=== PATIENT | female | born 1940 | race Caucasian/White ===

== ENCOUNTER 2024-08-13 15:56 | Inpatient (IN) ==
--- NOTE | 2024-08-13 16:02 | ED Triage Note ---
Date of Service August 13, 2024 Provider in Triage Author: Min Carrasco History of Present Illness This patient was briefly evaluated while in triage. An abbreviated physical exam was performed. This patient is a 83-year-old Female who presents to the ED for evaluation right flank and groin pain x weeks had right ureteral stent removed with urology today (has ureteral stricture) also has an abdominal hernia-thinks its getting worse Physical Exam GENERAL: NAD CARDIOVASCULAR: RRR RESPIRATORY: CTA ABDOMEN: BS x 4. Right abdominal TTP. Initial orders for labs and / or imaging were placed and patient was placed in the waiting area until a bed is available. Please see further documentation for the full ED course.
[2024-08-13 16:47] LABS: Basophils # (auto) 0.03 K/uL (0.00-0.20); Basophils % (auto) 0.6 %; Eosinophils # (auto) 0.07 K/uL (0.00-0.50); Eosinophils % (auto) 1.4 %; Hematocrit (blood only) 35.7 % (37.0-47.0); Hemoglobin 11.4 g/dl (12.0-16.0); Immature Granulocytes # (auto) 0.01 K/uL (0.01-0.20); Immature Granulocytes % (auto) 0.2 %; Lymphocytes # (auto) 1.48 K/uL (1.20-3.40); Lymphocytes % (auto) 30.6 %; Mean Corpuscular Hemoglobin 26.5 pg (25.0-34.0); Mean Corpuscular Hgb Conc 31.9 g/dL (32.0-36.0); Mean Corpuscular Volume 82.8 fL (80.0-100.0); Mean Platelet Volume 9.5 fL (9.4-12.4); Monocytes % (auto) 8.3 %; Neutrophils # (auto) 2.85 K/uL (1.40-6.50); Neutrophils % (auto) 58.9 %; Platelet Count 306 K/uL (130-400); RDW Coefficient of Variation 13.9 % (11.5-14.5); RDW Standard Deviation 42.4 fL (36.4-46.3); Red Blood Count 4.31 M/uL (4.20-5.40); White Blood Count 4.84 K/ul (4.8-10.8)
--- NOTE | 2024-08-13 16:54 | Emergency Department Note ---
Impression & Plan Cecal volvulus, Abdominal wall hernia, NAPOLEON (acute kidney injury), Abdominal pain ED Provider Note NAME: TODD KING AGE: 83 SEX: F : 1940 ARRIVES VIA: Walk-In INFORMANT: Patient, ED PROVIDER(S): Dustin Yusuf MD CHIEF COMPLAINT: Abdominal pain MEDICAL DECISION MAKING: Patient presents due to concern for right-sided abdominal and lower abdominal pain in the setting of possible hernia as well as recent stent removal completed earlier today. IV was established and blood work was obtained. Patient was ordered IV Ofirmev. CT of the abdomen pelvis was performed. Patient's blood work shows a normal white count with a hemoglobin 11.4. This is around the patient's baseline. Platelet count is unremarkable with normal electrolytes. BSG 122 but nonfasting and not DKA. Slight NAPOLEON potentially is the patient's baseline creatinine 0.9 currently at 1.3. Patient was ordered IV fluids. LFTs are unremarkable. 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 I did inform the patient of the findings. The patient was ordered IV fentanyl. The patient was advised not to eat or drink anything. I did speak with the on-call general surgery team Dr. Lincoln Burnette who stated that Damon Urena would be present around 7 PM to evaluate the patient. Believe that this is reasonable at this time. They will discuss further management which may include operative intervention this evening versus possibly tomorrow. I did speak with the on-call hospital service Dr. Urbina and the patient was admitted to the medicine service. Discussion w/ other healthcare providers: Dr. Lincoln Burnette with general surgery Dr. Urbina inpatient medicine service Prior /Outside records reviewed: I reviewed the urology visit note from August [address] Welsh. Patient did have a cystoscopy performed along with stent removal completed. Differential diagnosis: Appendicitis, ovarian cyst, ovarian torsion, ectopic , TOA, PID, diverticulitis, UTI, obstruction, inflammatory bowel disease, renal colic, PUD, pancreatitis, biliary pathology, hernia, volvulus, constipation, as well as other pathologies were considered. Diagnostics, as interpreted by me: ECG: None Cardiac monitoring: An order was placed for continuous cardiac monitoring. The monitor shows a rate of 75 with sinus rhythm. Patient was placed on pulse oximetry Medical decision rules: None Imaging studies: I informally interpreted the patient's CT abdomen pelvis does show colonic distention with noted hernia with formal report to follow. HPI: Patient presents due to concern for right-sided abdominal and flank pain. The patient states that she did have a recent ureteral stent removed by Dr. Welsh. Patient states that she did have it removed today. Review of the chart shows a note dated yesterday. Patient denies any chest pains or shortness of breath. No nausea or vomiting. Last bowel movement this morning. The patient was also concerned as she feels as though her right sided abdominal hernia is getting bigger. The patient has been seen by Dr. Suggs and is scheduled to have this operatively fixed next month. Patient Nuys any bloody bowel movements. Patient did take some Tylenol but did not notice any significant improvement in her symptoms. Patient denies any fevers or chills. PAST MEDICAL HISTORY: See Below PAST SURGICAL HISTORY: See Below SOCIAL HISTORY: See Below HOME MEDICATIONS: See Below ALLERGIES: See Below VITALS: See Below PHYSICAL EXAMINATION: GENERAL: NAD, non-toxic. EYE EXAM: Normal conjunctiva. PERRL, no anisocoria and EOM's grossly intact w/o pain. OROPHARYNX: Moist mucus membranes, grossly normal dentition. NECK: Trachea midline, no stridor. Supple, no nuchal rigidity, no adenopathy, non-tender. No signs of meningismus. FROM of the neck with good chin to chest and neck extension. LUNGS: Clear to auscultation. Normal chest wall mechanics. HEART: NSR, no MRG. ABDOMEN: Abdomen soft, mild diffuse tenderness most prominent in the lower abdomen, hernia noted in the right mid abdomen seems to be reducible, right lower quadrant pain also noted, no masses, no rebound or guarding. BACK: No CVA TTP. SKIN: No rashes and no bruising. UPPER EXTREMITIES: Upper extremities are grossly normal. LOWER EXTREMITIES: Grossly normal, no edema. NEURO EXAM: A&O x3, cranial nerves II-XII grossly intact, normal speech, moves all 4 extremities. Past Med/Surg History Problem List (Updated 08/13/24 @ 19:28 by Dustin Yusuf MD) Abdominal pain (Acute) NAPOLEON (acute kidney injury) (Acute) Cecal volvulus (Acute) Incarcerated ventral hernia Abdominal wall hernia (Acute) Encounter for preoperative assessment (Acute) Medical History Hyperlipidemia History of back problems Bronchitis Poor historian Hydroureteronephrosis right kidney larger per pt. Osteoporosis Arthritis History of diverticulitis Kidney lesion, habematolel, right Hiatal hernia Large hiatal hernia- urology referred patient to general surgery per 07/16/24 office visit Abdominal wall hernia Acid reflux Hypothyroid HTN (hypertension) Anxiety Surgical History History of surgical procedure on mouth top teeth removed History of tubal ligation History of D&C History of surgery on left wrist pins and screws. History of cholecystectomy History of hysterectomy History of colonoscopy (2018) pain following procedure...urgent care visit and hospitalized for perforation...no sx intervention required. History of intestinal surgery (04/2023) "bowel kinked" Family History Aunt Diabetes Father Heart disease Other No family history of adverse response to anesthesia Social History Smoking Status: Never smoker Do You Dip or Chew Tobacco: No; Hx Substance Use: No Preferred Language: French Communication Ability: Effective Market Consultant Required: No Beliefs That Will Affect Care: None marital status: Current Living Situation: Spouse How many Children do You have: 1 Feels Safe at Home: Yes during the past year weight has: remained stable Assistive Devices: Other Allergies Allergies Allergy/AdvReac Type Severity Reaction Status Date / Time iodine Allergy Unverified 08/12/24 11:06 morphine AdvReac Unknown Confusion Verified 08/12/24 11:03 oxycodone [From OxyContin] AdvReac Unknown felt awful Verified 08/12/24 11:03 on it Home Meds Home Medications Medication Instructions Recorded Confirmed diltiazem HCl 240 mg capsule,24 240 mg PO QAM 07/15/24 08/13/24 hr,extended release levothyroxine 25 mcg tablet 25 mcg PO QAM 07/15/24 08/13/24 lorazepam 1 mg tablet 1 mg PO TID PRN Anxiety 07/15/24 08/13/24 omeprazole 20 mg capsule,delayed 20 mg PO QAM 07/15/24 08/13/24 release paroxetine HCl 10 mg tablet 10 mg PO HS 07/15/24 08/13/24 tramadol 50 mg tablet 50 mg PO UD PRN Pain 07/15/24 08/13/24 ibuprofen 600 mg tablet 600 mg PO BID PRN Pain 07/23/24 08/13/24 multivitamin 2 cap PO DAILY 07/23/24 08/13/24 tamsulosin 0.4 mg capsule 0.8 mg PO HS 07/23/24 08/13/24 Previous Rx's Medication Instructions Recorded naproxen 500 mg tablet 500 mg PO BID #30 tabs 07/16/24 Results & Data (ED) Vital Signs Vital Signs - 24 hr 08/13/24 16:00 08/13/24 17:01 08/13/24 18:13 Temperature 36.2 C L Temperature Source Temporal Artery Scan Pulse Rate 86 72 Pulse Rate [Apical] 84 Pulse Rhythm Regular Pulse Rhythm [Apical] Regular Pulse Strength Normal Respiratory Rate 18 20 Respiratory Effort / Characteristics Non-Labored Spontaneous Non-Labored Spontaneous Respiratory Depth Normal Normal Respiratory Pattern Regular Regular Blood Pressure 159/84 H Blood Pressure [Left Arm] 150/74 H Blood Pressure Mean 109 Blood Pressure Mean [Left Arm] 99 Blood Pressure Position Sitting Blood Pressure Position [Left Arm] Semi-fowlers Pulse Oximetry 99 96 Oxygen Delivery Method Room Air Sepsis Recent Fever Within 48 Hours No Sepsis New/Unexplained Change in Mental Status No Sepsis Action Taken by Nursing No Action Required 08/13/24 18:30 Temperature Temperature Source Pulse Rate Pulse Rate [Apical] 77 Pulse Rhythm Pulse Rhythm [Apical] Pulse Strength Respiratory Rate 15 Respiratory Effort / Characteristics Non-Labored Spontaneous Respiratory Depth Normal Respiratory Pattern Regular Blood Pressure Blood Pressure [Left Arm] 147/79 H Blood Pressure Mean Blood Pressure Mean [Left Arm] 101 Blood Pressure Position Blood Pressure Position [Left Arm] Semi-fowlers Pulse Oximetry 95 Oxygen Delivery Method Room Air Sepsis Recent Fever Within 48 Hours Sepsis New/Unexplained Change in Mental Status Sepsis Action Taken by Penitentiary Medications Current Medication List: was personally reviewed by me Laboratory Data Attestation: I reviewed the patient's lab results. 08/13/24 16:18 08/13/24 16:18 Lab Results 08/13/24 Range/Units 16:18 WBC 4.84 (4.8-10.8) K/ul RBC 4.31 (4.20-5.40) M/uL Hgb 11.4 L (12.0-16.0) g/dl Hct 35.7 L (37.0-47.0) % MCV 82.8 (80.0-100.0) fL MCH 26.5 (25.0-34.0) pg MCHC 31.9 L (32.0-36.0) g/dL RDW Std Deviation 42.4 (36.4-46.3) fL RDW Coeff of Angy 13.9 (11.5-14.5) % Plt Count 306 (130-400) K/uL MPV 9.5 (9.4-12.4) fL Immature Gran % (Auto) 0.2 % Neut % (Auto) 58.9 % Lymph % (Auto) 30.6 % Saline % (Auto) 8.3 % Eos % (Auto) 1.4 % Baso % (Auto) 0.6 % Neut # (Auto) 2.85 (1.40-6.50) K/uL Lymph # (Auto) 1.48 (1.20-3.40) K/uL Saline # (Auto) 0.40 (0.11-0.59) K/uL Eos # (Auto) 0.07 (0.00-0.50) K/uL Baso # (Auto) 0.03 (0.00-0.20) K/uL Immature Gran # (Auto) 0.01 (0.01-0.20) K/uL Sodium 138 (136-145) mmol/L Potassium 4.0 (3.5-5.1) mmol/L Chloride 102 (98-107) mmol/L Carbon Dioxide 29 (21-32) mmol/L Anion Gap 7 (3-11) BUN 21 (6-23) mg/dl Creatinine 1.31 H (0.6-1.2) mg/dl Est Cr Clr Drug Dosing 32.2 ml/min eGFR 40.68 BUN/Creatinine Ratio 16.0 (10-20) Glucose 122 H (70-99(Fasting)) mg/dl Calcium 9.6 (8.6-10.3) mg/dl Total Bilirubin 0.4 (0.2-1.0) mg/dl AST 14 (13-39) U/L ALT 7 (7-52) U/L Alkaline Phosphatase 74 (34-104) U/L Total Protein 7.7 (6.0-8.3) gm/dl Albumin 4.2 (3.4-5.0) gm/dl Globulin 3.5 (2.5-4.0) gm/dl Albumin/Globulin Ratio 1.2 (0.9-2) Lipase 47 (11-82) U/L Administered Medications Sodium Chloride (Nss) 500 mls @ 125 mls/hr IV .Q4H JACK Stop: 08/13/24 22:29 Last Admin: 08/13/24 18:48 Dose: 125 mls/hr Documented By: SHRUTHI Discontinued Medications Fentanyl Citrate (Fentanyl Citrate Pf 100 Mcg/2 Ml Vial) 25 mcg IV NOW STA Stop: 08/13/24 18:31 Last Admin: 08/13/24 18:44 Dose: 25 mcg Documented By: SHRUTHI Acetaminophen (Ofirmev) 1,000 mg in 100 mls @ 400 mls/hr IV NOW STA Stop: 08/13/24 18:30 Last Infusion: 08/13/24 19:04 Dose: Infused Documented By: Admin: 08/13/24 18:47 Dose: 400 mls/hr Documented By: SHRUTHI Imaging Data Radiologist's Impression: Abdomen/Pelvis CT 08/13/24 16:04 EXAMINATION: CT of the abdomen and pelvis performed without contrast TECHNIQUE: Helical CT images from the lung bases through the symphysis pubis were obtained without contrast. Coronal and sagittal reformatted images were generated at a workstation for further assessment. Dose reduction techniques were achieved by using automatic exposure control and/or adjustment of mA and/or kV according to patient size and/or use of iterative reconstruction technique. COMPARISON: 07/15/2024 HISTORY: Abdominal pain FINDINGS: Lower chest: No consolidation. No pleural effusion or pneumothorax. Liver: No suspicious liver lesions. Gallbladder: Cholecystectomy changes. Spleen: Normal size. Pancreas: No suspicious pancreatic lesions. The pancreatic duct is not dilated. Adrenal glands: No adrenal nodules. Kidneys: No hydronephrosis or obstructing renal stones. Bladder / Pelvic organs: Unremarkable. Bowel: There is dilation of the cecum, which is deviated into the mid abdomen. The location for the ileocecal valve, additionally appears to be about the lateral aspect of the cecum, rather than medial. The mesentery lateral to the cecum has a slightly swirled appearance, with twisting of the proximal portion of the ascending:. A prominent air/fluid level is noted in the cecum. The appearance is entirely new from the CT on July 15, 2024, when the cecum was appropriately located and nondilated in the right lower quadrant. The previously seen right paramedian ventral wall abdominal hernia containing loops of small bowel appears to have slightly increased in size, possibly due to to increased intra-abdominal pressure and the proximity of the dilated cecum. Sigmoid diverticulosis without diverticulitis. There is a large esophageal hiatal hernia, containing the entire stomach. Lymph nodes: No retroperitoneal, mesenteric, or pelvic lymphadenopathy. Peritoneum / Retroperitoneum: No free fluid or air within the abdomen. Vessels: No infrarenal aortic aneurysm. Heavy aortoiliac calcification. Bones and soft tissues: No suspicious lesion in the bones. IMPRESSION: There is new dilation and medial deviation of the cecum, with an air/fluid level, and swirling of the adjacent mesentery, most consistent with cecal volvulus. Electronically signed by Manuel Garcia 08-13-2024 6:07 PM Discharge Plan Visit Data Chief Complaint: Groin Pain Stated Complaint: RT HIP INTO GROIN PAIN, HAS A STINT ED Provider: Dustin Yusuf Discharge Problem: Cecal volvulus, Abdominal wall hernia, NAPOLEON (acute kidney injury), Abdominal pain Forms Stand Alone Forms: [facility] Prescriptions Prescriptions: No Action naproxen 500 mg tablet 500 mg PO BID Qty: 30 1RF paroxetine HCl 10 mg tablet 10 mg PO HS diltiazem HCl 240 mg capsule,extended release 24 hr 240 mg PO QAM tramadol 50 mg tablet 50 mg PO UD PRN (Reason: Pain) levothyroxine 25 mcg tablet 25 mcg PO QAM omeprazole 20 mg capsule,delayed release(DR/EC) 20 mg PO QAM lorazepam 1 mg tablet 1 mg PO TID PRN (Reason: Anxiety) ibuprofen 600 mg Tablet 600 mg PO BID PRN (Reason: Pain) multivitamin Capsule 2 cap PO DAILY tamsulosin 0.4 mg capsule 0.8 mg PO HS Referrals Referrals: Daria Taylor D.O. [Primary Care Provider] - Discharge Problem: Abdominal pain Qualifiers: Abdominal location: right lower quadrant Qualified Code(s): R10.31 - Right lower quadrant pain
[2024-08-13 16:55] LABS: Albumin Globulin Ratio 1.2 (0.9-2); Albumin Level 4.2 gm/dl (3.4-5.0); Bilirubin,Total 0.4 mg/dl (0.2-1.0); Calcium 9.6 mg/dl (8.6-10.3); Creatinine Clr Calc Pharmacy 32.2 ml/min; Globulin 3.5 gm/dl (2.5-4.0); Total Protein 7.7 gm/dl (6.0-8.3)
--- NOTE | 2024-08-13 18:08 | CT Scan Report ---
EXAMINATION: CT of the abdomen and pelvis performed without contrast TECHNIQUE: Helical CT images from the lung bases through the symphysis pubis were obtained without contrast. Coronal and sagittal reformatted images were generated at a workstation for further assessment. Dose reduction techniques were achieved by using automatic exposure control and/or adjustment of mA and/or kV according to patient size and/or use of iterative reconstruction technique. COMPARISON: 07/15/2024 HISTORY: Abdominal pain FINDINGS: Lower chest: No consolidation. No pleural effusion or pneumothorax. Liver: No suspicious liver lesions. Gallbladder: Cholecystectomy changes. Spleen: Normal size. Pancreas: No suspicious pancreatic lesions. The pancreatic duct is not dilated. Adrenal glands: No adrenal nodules. Kidneys: No hydronephrosis or obstructing renal stones. Bladder / Pelvic organs: Unremarkable. Bowel: There is dilation of the cecum, which is deviated into the mid abdomen. The location for the ileocecal valve, additionally appears to be about the lateral aspect of the cecum, rather than medial. The mesentery lateral to the cecum has a slightly swirled appearance, with twisting of the proximal portion of the ascending:. A prominent air/fluid level is noted in the cecum. The appearance is entirely new from the CT on July 15, 2024, when the cecum was appropriately located and nondilated in the right lower quadrant. The previously seen right paramedian ventral wall abdominal hernia containing loops of small bowel appears to have slightly increased in size, possibly due to to increased intra-abdominal pressure and the proximity of the dilated cecum. Sigmoid diverticulosis without diverticulitis. There is a large esophageal hiatal hernia, containing the entire stomach. Lymph nodes: No retroperitoneal, mesenteric, or pelvic lymphadenopathy. Peritoneum / Retroperitoneum: No free fluid or air within the abdomen. Vessels: No infrarenal aortic aneurysm. Heavy aortoiliac calcification. Bones and soft tissues: No suspicious lesion in the bones. IMPRESSION: There is new dilation and medial deviation of the cecum, with an air/fluid level, and swirling of the adjacent mesentery, most consistent with cecal volvulus. Electronically signed by Manuel Garcia 08-13-2024 6:07 PM
[2024-08-13] MEDS: fentaNYL citrate PF 100 MCG/2 ML VIAL IV STA (18:44)
[2024-08-13] MEDS: ACETAMINOPHEN 1,000 MG/100 ML VIAL IV STA (18:47)
[2024-08-13] MEDS: SODIUM CHLORIDE 0.9% 500 ML IV SCH (18:48)
[2024-08-13] MEDS: PIPERACILLIN/TAZOBACTAM 4.5 GM/100 ML BAG IV ONE (19:41)
[2024-08-13] MEDS ORDERED: HYDROmorphone INJ 0.5 MG/0.5 ML SYR IV PRN (19:42)
--- NOTE | 2024-08-13 19:42 | Anesthesiology Consultation ---
Date of Service August 13, 2024 Assessment & Plan (1) Encounter for preoperative assessment: Chart Review Chart Review: Patient NOT seen in Pre Admission Testing emergent surgery Consults Requested none History Surgery Operation Date: 08/13/24 19:30 Proposed Procedures p Exploratory Laparotomy - Frieda Awan DO Height/Weight Height: 5 ft 5 in Weight: 68.5 kg Allergies Allergy/AdvReac Type Severity Reaction Status Date / Time iodine Allergy Unverified 08/12/24 11:06 morphine AdvReac Unknown Confusion Verified 08/12/24 11:03 oxycodone [From OxyContin] AdvReac Unknown felt awful Verified 08/12/24 11:03 on it Medications Home Medications Medication Instructions Recorded Confirmed Last Taken diltiazem HCl 240 mg capsule,24 240 mg PO QAM 07/15/24 08/13/24 08/01/24 05:00 hr,extended release levothyroxine 25 mcg tablet 25 mcg PO QAM 07/15/24 08/13/24 08/01/24 05:00 lorazepam 1 mg tablet 1 mg PO TID PRN Anxiety 07/15/24 08/13/24 07/31/24 17:00 omeprazole 20 mg capsule,delayed 20 mg PO QAM 07/15/24 08/13/24 08/01/24 05:00 release paroxetine HCl 10 mg tablet 10 mg PO HS 07/15/24 08/13/24 07/31/24 20:00 tramadol 50 mg tablet 50 mg PO UD PRN Pain 07/15/24 08/13/24 1 Week Ago ~07/25/24 naproxen 500 mg tablet 500 mg PO BID #30 tabs 07/16/24 08/13/24 1 Week Ago ~07/25/24 ibuprofen 600 mg tablet 600 mg PO BID PRN Pain 07/23/24 08/13/24 2 Weeks Ago ~07/18/24 multivitamin 2 cap PO DAILY 07/23/24 08/13/24 1 Week Ago ~07/25/24 tamsulosin 0.4 mg capsule 0.8 mg PO HS 07/23/24 08/13/24 07/31/24 20:00 Active Medications Generic Name Dose Route Start Last Admin Trade Name Freq PRN Reason Stop Dose Admin Sodium Chloride 500 mls @ 125 mls/hr 08/13/24 18:30 08/13/24 18:48 Nss IV 08/13/24 22:29 125 mls/hr .Q4H JACK Administration Piperacillin Sod/Tazobactam Sod 4.5 gm in 100 mls @ 200 mls/hr 08/13/24 19:27 08/13/24 19:41 Zosyn IV 08/13/24 19:56 200 mls/hr NOW ONE Administration Protocol Past Medical History Medical History Hyperlipidemia History of back problems Bronchitis Poor historian Hydroureteronephrosis right kidney larger per pt. Osteoporosis Arthritis History of diverticulitis Kidney lesion, osage, right Hiatal hernia Large hiatal hernia- urology referred patient to general surgery per 07/16/24 office visit Abdominal wall hernia Acid reflux Hypothyroid HTN (hypertension) Anxiety Past Family History Family History Aunt Diabetes Father Heart disease Other No family history of adverse response to anesthesia Past Surgical History Surgical History History of surgical procedure on mouth top teeth removed History of tubal ligation History of D&C History of surgery on left wrist pins and screws. History of cholecystectomy History of hysterectomy History of colonoscopy (2017) pain following procedure...urgent care visit and hospitalized for perforation...no sx intervention required. History of intestinal surgery (04/2023) "bowel kinked" Social History Smoking Status: Never smoker Do You Dip or Chew Tobacco: No Hx Substance Use: No substance use type: does not use Physical Exam Vital Signs Last Vital Signs Temp 97.2 F L 08/13/24 16:00 Pulse 77 08/13/24 18:30 Resp 15 08/13/24 18:30 BP 147/79 H 08/13/24 18:30 Pulse Ox 95 08/13/24 18:30 O2 Del Method Room Air 08/13/24 18:30 Testing Laboratory Results 08/13/24 16:18 08/13/24 16:18 Electrocardiogram Date: 07/19/24 Findings: + NSR @
--- NOTE | 2024-08-13 19:47 | History & Physical Report ---
Date of Service August 13, 2024 Assessment & Plan (1) NAPOLEON (acute kidney injury): (2) Cecal volvulus: (3) Incarcerated ventral hernia: (4) HTN (hypertension): (5) Anxiety: (6) Hypothyroid: (7) Acid reflux: Plan This is a 83 y/o F w/ PMHx of HTN, HLD, OA, GERD, Anxiety, Hypothyroidism, and ventral hernia recently noted to be incarcerated who arrived to the ED due to severe abdominal pain of acute onset, and was admitted for management of cecal volvulus. Cecal volvulus - Patient with intermittent abdominal pain that could be related to incarcerated ventral hernia versus volvulus with spontaneous detorsion versus urologic origin given recent noted urothelial lesion requiring stent placement. - Patient w/o N/V or significant pain at time of evaluation and does not appear septic - ED discussed with General Surgery and patient to go for OR today for exploratory laparotomy - Started Zosyn and may continue postoperatively - Stepwise pain control with tylenol for mild pain, dilaudid 0.25 mg for moderate pain, and dilaudid 0.5 mg for severe pain - NPO for now and mIVF ordered - General surgery consulted - Admit to Med/Surg Incarcerated ventral hernia - Recently visited Gen surg as outpatient where her hernia was noted to be incarcerated and were planning to coordinate for surgical management soon - Possibly contributing to current presentation? - Monitoring and management per general surgery team HTN - Home meds held while NPO; can resume tomorrow - BP in ED stable Anxiety - Home Paroxetine held while NPO - Uses Ativan prn at home (unsure how frequent); held for now Hypothyroidism - Levothyroxine held while NPO, can resume tomorrow morning GERD - Omeprazole 20 mg daily held while NPO Dispo: Med/Surge Fluids: NSS @125 ml/hr Diet:NPO for procedure Pain Control: Stepwise approach with Tylenol 1 gm for mild pain, Dilaudid 0.25 mg for moderate pain, and Dilaudid 0.5 mg for severe pain VTE ppx: SCD Code Status: FULL CODE History of Present Illness Chief Complaint: Abdominal pain Primary Care Provider: Daria Taylor Patient is an 83-year-old female with past medical history of hypertension, anxiety, hypothyroidism, osteoarthritis, and incarcerated ventral hernia who arrived to the emergency department due to right flank and groin pain that has been present for a few weeks, as well as intermittent abdominal pain with acute worsening today. She was seen by urology office on 08/12/2024 to have right ureteral stent removed, which was placed due to ureteral stricture on 08/01/2024. No urinary symptoms at this time. Patient has history of small bowel obstruction a few years back, and states that she had been getting similar but more mild pain that comes and goes over the last few months. However, that abdominal pain that she has been feeling for the last few months happened today and was much worse. Also endorses episode of diarrhea earlier today that was nonbloody. Pain appeared suddenly without known precipitating factor. Try to use Tylenol at home without success for pain control. Denies having any fevers, chills, weakness, nausea/vomiting, chest pain, shortness of breath, or any other systemic symptoms. ED Course: given 500 mL NSS at 125 ml/hr, fentanyl 25 mcg, Tylenol 1 gm, Zosyn x1 Labs/Imaging: CBC with normal white blood count of 4.94, hemoglobin of 11.4 (close to baseline), platelets of 306. CMP without significant electrolyte abnormalities, creatinine slightly increased compared to level taken from June/2024 (0.91 --> 1.31), blood sugar 122. LFTs unremarkable. Lipase 47. CT abdomen pelvis without contrast noting likely cecal volvulus. Medical History: [Reviewed] Medications: [Reviewed] Surgical History: [Reviewed] Family history: [Reviewed] Allergies: [Reviewed] Social History: [Reviewed] Code Status: FULL CODE Allergies Allergy/AdvReac Type Severity Reaction Status Date / Time iodine Allergy Unverified 08/12/24 11:06 morphine AdvReac Unknown Confusion Verified 08/12/24 11:03 oxycodone [From OxyContin] AdvReac Unknown felt awful Verified 08/12/24 11:03 on it Home Medications Medication Instructions Recorded Confirmed Type diltiazem HCl 240 mg capsule,24 240 mg PO QAM 07/15/24 08/13/24 History hr,extended release levothyroxine 25 mcg tablet 25 mcg PO QAM 07/15/24 08/13/24 History lorazepam 1 mg tablet 1 mg PO TID PRN Anxiety 07/15/24 08/13/24 History omeprazole 20 mg capsule,delayed 20 mg PO QAM 07/15/24 08/13/24 History release paroxetine HCl 10 mg tablet 10 mg PO HS 07/15/24 08/13/24 History tramadol 50 mg tablet 50 mg PO UD PRN Pain 07/15/24 08/13/24 History naproxen 500 mg tablet 500 mg PO BID #30 tabs 07/16/24 08/13/24 Rx ibuprofen 600 mg tablet 600 mg PO BID PRN Pain 07/23/24 08/13/24 History multivitamin 2 cap PO DAILY 07/23/24 08/13/24 History tamsulosin 0.4 mg capsule 0.8 mg PO HS 07/23/24 08/13/24 History Past Med/Surg History Problem List Abdominal pain (Acute) N[place]ON (acute kidney injury) (Acute) Cecal volvulus (Acute) Incarcerated ventral hernia Abdominal wall hernia (Acute) Encounter for preoperative assessment (Acute) Medical History Hyperlipidemia History of back problems Bronchitis Poor historian Hydroureteronephrosis right kidney larger per pt. Osteoporosis Arthritis History of diverticulitis Kidney lesion, [place], right Hiatal hernia Large hiatal hernia- urology referred patient to general surgery per 07/16/24 office visit Abdominal wall hernia Acid reflux Hypothyroid HTN (hypertension) Anxiety Surgical History History of surgical procedure on mouth top teeth removed History of tubal ligation History of D&C History of surgery on left wrist pins and screws. History of cholecystectomy History of hysterectomy History of colonoscopy (2018) pain following procedure...urgent care visit and hospitalized for perforation...no sx intervention required. History of intestinal surgery (04/2023) "bowel kinked" Family History Aunt Diabetes Father Heart disease Other No family history of adverse response to anesthesia Social History Smoking Status: Never smoker Tobacco Type: Declines Second Hand Exposure: No; Do You Dip or Chew Tobacco: No; Tobacco Cessation Education Requested by Patient: No Hx Alcohol Use: No Hx Substance Use: No Preferred Language: Sinhala Communication Ability: Effective Nail Galvanizer Required: No Beliefs That Will Affect Care: None marital status: Current Living Situation: Spouse How many Children do You have: 1 Other Information That Helps Us Care for You: No Feels Safe at Home: Yes Safety Concerns: Feels Safe At This Time during the past year weight has: remained stable Assistive Devices: Other Review of Systems Review of Systems: As per HPI Physical Exam Physical Exam: GENERAL: AAOx3, afebrile, calm, cooperative, non-toxic, NAD HEAD: AT, NC EYES: EOM intact, [place] THROAT: normal to visual inspection CHEST: symmetric chest expansions with respirations CARDIO: RRR, no r/m/g PULMONARY: CTA, normal respiratory effort, no respiratory distress GI: soft, mildly distended, mildly tender, bulge noted in RLQ EXTREMITIES: no swelling or calf tenderness in b/l LE SKIN: no rashes Results & Data Results & Data Vital Signs (Past 12 Hours) Vital Signs Temp Pulse Pulse Resp BP BP Pulse Ox 08/13/24 18:30 77 15 147/79 H 95 08/13/24 18:13 84 20 150/74 H 96 08/13/24 17:01 72 08/13/24 16:00 36.2 C L 86 18 159/84 H 99 O2 Del Method 08/13/24 18:30 Room Air 08/13/24 18:13 Room Air 08/13/24 17:01 08/13/24 16:00 Laboratory Results Laboratory Results WBC 4.84 K/ul (4.8-10.8) 08/13/24 16:18 RBC 4.31 M/uL (4.20-5.40) 08/13/24 16:18 Hgb 11.4 g/dl (12.0-16.0) L 08/13/24 16:18 Hct 35.7 % (37.0-47.0) L 08/13/24 16:18 MCV 82.8 fL (80.0-100.0) 08/13/24 16:18 MCH 26.5 pg (25.0-34.0) 08/13/24 16:18 MCHC 31.9 g/dL (32.0-36.0) L 08/13/24 16:18 RDW Std Deviation 42.4 fL (36.4-46.3) 08/13/24 16:18 RDW Coeff of Angy 13.9 % (11.5-14.5) 08/13/24 16:18 Plt Count 306 K/uL (130-400) 08/13/24 16:18 MPV 9.5 fL (9.4-12.4) 08/13/24 16:18 Immature Gran % (Auto) 0.2 % 08/13/24 16:18 Neut % (Auto) 58.9 % 08/13/24 16:18 Lymph % (Auto) 30.6 % 08/13/24 16:18 [place] % (Auto) 8.3 % 08/13/24 16:18 Eos % (Auto) 1.4 % 08/13/24 16:18 Baso % (Auto) 0.6 % 08/13/24 16:18 Neut # (Auto) 2.85 K/uL (1.40-6.50) 08/13/24 16:18 Lymph # (Auto) 1.48 K/uL (1.20-3.40) 08/13/24 16:18 [place] # (Auto) 0.40 K/uL (0.11-0.59) 08/13/24 16:18 Eos # (Auto) 0.07 K/uL (0.00-0.50) 08/13/24 16:18 Baso # (Auto) 0.03 K/uL (0.00-0.20) 08/13/24 16:18 Immature Gran # (Auto) 0.01 K/uL (0.01-0.20) 08/13/24 16:18 PT 10.6 Seconds (9.0-12.0) 08/13/24 16:15 INR 1.0 (0.9-1.1) 08/13/24 16:15 APTT 28 Seconds (21-31) 08/13/24 16:15 PTT Ratio 1.0 08/13/24 16:15 Sodium 138 mmol/L (136-145) 08/13/24 16:18 Potassium 4.0 mmol/L (3.5-5.1) 08/13/24 16:18 Chloride 102 mmol/L (98-107) 08/13/24 16:18 Carbon Dioxide 29 mmol/L (21-32) 08/13/24 16:18 Anion Gap 7 (3-11) 08/13/24 16:18 BUN 21 mg/dl (6-23) 08/13/24 16:18 Creatinine 1.31 mg/dl (0.6-1.2) H 08/13/24 16:18 Est Cr Clr Drug Dosing 32.2 ml/min 08/13/24 16:18 eGFR 40.68 08/13/24 16:18 BUN/Creatinine Ratio 16.0 (10-20) 08/13/24 16:18 Glucose 122 mg/dl (70-99(Fasting)) H 08/13/24 16:18 Calcium 9.6 mg/dl (8.6-10.3) 08/13/24 16:18 Total Bilirubin 0.4 mg/dl (0.2-1.0) 08/13/24 16:18 AST 14 U/L (13-39) 08/13/24 16:18 ALT 7 U/L (7-52) 08/13/24 16:18 Alkaline Phosphatase 74 U/L (34-104) 08/13/24 16:18 Total Protein 7.7 gm/dl (6.0-8.3) 08/13/24 16:18 Albumin 4.2 gm/dl (3.4-5.0) 08/13/24 16:18 Globulin 3.5 gm/dl (2.5-4.0) 08/13/24 16:18 Albumin/Globulin Ratio 1.2 (0.9-2) 08/13/24 16:18 Lipase 47 U/L (11-82) 08/13/24 16:18 Impressions Abdomen/Pelvis CT 08/13/24 16:04 EXAMINATION: CT of the abdomen and pelvis performed without contrast TECHNIQUE: Helical CT images from the lung bases through the symphysis pubis were obtained without contrast. Coronal and sagittal reformatted images were generated at a workstation for further assessment. Dose reduction techniques were achieved by using automatic exposure control and/or adjustment of mA and/or kV according to patient size and/or use of iterative reconstruction technique. COMPARISON: 07/15/2024 HISTORY: Abdominal pain FINDINGS: Lower chest: No consolidation. No pleural effusion or pneumothorax. Liver: No suspicious liver lesions. Gallbladder: Cholecystectomy changes. Spleen: Normal size. Pancreas: No suspicious pancreatic lesions. The pancreatic duct is not dilated. Adrenal glands: No adrenal nodules. Kidneys: No hydronephrosis or obstructing renal stones. Bladder / Pelvic organs: Unremarkable. Bowel: There is dilation of the cecum, which is deviated into the mid abdomen. The location for the ileocecal valve, additionally appears to be about the lateral aspect of the cecum, rather than medial. The mesentery lateral to the cecum has a slightly swirled appearance, with twisting of the proximal portion of the ascending:. A prominent air/fluid level is noted in the cecum. The appearance is entirely new from the CT on July 15, 2024, when the cecum was appropriately located and nondilated in the right lower quadrant. The previously seen right paramedian ventral wall abdominal hernia containing loops of small bowel appears to have slightly increased in size, possibly due to to increased intra-abdominal pressure and the proximity of the dilated cecum. Sigmoid diverticulosis without diverticulitis. There is a large esophageal hiatal hernia, containing the entire stomach. Lymph nodes: No retroperitoneal, mesenteric, or pelvic lymphadenopathy. Peritoneum / Retroperitoneum: No free fluid or air within the abdomen. Vessels: No infrarenal aortic aneurysm. Heavy aortoiliac calcification. Bones and soft tissues: No suspicious lesion in the bones. IMPRESSION: There is new dilation and medial deviation of the cecum, with an air/fluid level, and swirling of the adjacent mesentery, most consistent with cecal volvulus. Electronically signed by Manuel Garcia 08-13-2024 6:07 PM Supervising Physician Co-Signing Physician Notes Patient seen and examined in room 379-2, chart reviewed, case discussed with Dr. Flood and I agree with the assessment and plan. Patient is an 83yo female presenting with incarcerated ventral hernia. Patient taken to the OR for exploratory laparotomy. Doing well this AM. Reports having a headache, otherwise doing well On exam she is HD stable, NAD Skin - no rash HEENT - MMM, Neck supple Heart - +S1/S2, regular Lungs - CTA Abd - +BS, binder in place Ext - no edema Labs and images reviewed Assessment/plan s/p exploratory laparotomy for suspected incarcerated hernia. Patient had lysis of adhesions and a [id number] ileocolic anastomosis Advance diet as tolerated Pain management Appreciate General Surgery assistance Resident Activity Tracking Resident Involvement: Resident Care Provided Care Provided: Adult [facility]
--- NOTE | 2024-08-13 19:51 | Surgery Consultation ---
Date of Consultation August 13, 2024 Assessment & Plan (1) Cecal volvulus: The patient is being admitted on the hospitalist service but due to the findings on CT scan from surgery perspective we will proceed as follows: There is concern the patient has an underlying cecal volvulus which required exploratory surgery which we plan on doing this evening with Dr. Elise I had a lengthy discussion with the patient and her family outlining that we are not sure exactly what will need to be performed but due to concern for cecal volvulus this may require bowel resection and possible colostomy formation as well as any other necessary procedures. I did have an extensive discussion with the patient and family regarding the nature of her procedure. They expressed her understanding and wished to proceed.Will give the patient preoperative antibiotics in the form of Zosyn Analgesia be provided Will hydrate her with IV fluids Will keep her n.p.o. for the present time Please see Dr. Elise's attending portion of this document for further description of surgical plan. Supervising Physician Co-Signing Physician Notes I have seen and examined this patient as well as reviewed the imaging studies and I agree with this plan. The patient needs exploration and may require bowel resection. I have discussed the surgery to them including the risks and benefits. Consent has been obtained. History of Present Illness Reason for Consultation: Cecal volvulus History of Present Illness This is an 83-year-old female who presented the emergency department secondary to abdominal pain. The patient said that she has been waxing and waning abdominal pain on the right side of her abdomen for at least 1 month. She notes it is got markedly worse today having thus prompting her visit to the emergency department. She denies any nausea or vomiting and noted that she had a loose bowel movement earlier today. She notes her most recent oral intake was at approximate 1:30 PM today. Patient says that she has had multiple abdominal surgeries in the past including a cholecystectomy and a hysterectomy. She also notes that she had an exploratory surgery approximate 1 year ago and do [place], [place] for which she described as a "twisted bowel.". With her current presentation she denies any fevers, shakes, or chills. She notes that she also has a ventral hernia of her abdomen which for which she saw Dr. Arie Suggs about any physician of general surgery yesterday and plans were being put in place to have these repaired. Since arrival to hospital patient has had labs and imaging were checked and reviewed. CT scan of abdomen pelvis showed the patient had dilatation at medial deviation of the cecum with an air-fluid level along with swelling in the adjacent mesentery concerning for a cecal volvulus. Patient was also noted to have a right paramedian ventral wall abdominal hernia containing loops of small bowel. Labs included CBC white blood cell count platelet count normal. Hemoglobin and hematocrit are 11.4 and 35.7. Chemistry profile showed sodium and potassium as well as the BUN were normal. Her creatinine had slight elevation of 1.3. There is no elevation of patient's LFTs or lipase. At the time of my interview she was resting comfortably in bed and she was no distress. Allergies Allergy/AdvReac Type Severity Reaction Status Date / Time iodine Allergy Unverified 08/12/24 11:06 morphine AdvReac Unknown Confusion Verified 08/12/24 11:03 oxycodone [From OxyContin] AdvReac Unknown felt awful Verified 08/12/24 11:03 on it Home Medications Medication Instructions Recorded Confirmed Type diltiazem HCl 240 mg capsule,24 240 mg PO QAM 07/15/24 08/13/24 History hr,extended release levothyroxine 25 mcg tablet 25 mcg PO QAM 07/15/24 08/13/24 History lorazepam 1 mg tablet 1 mg PO TID PRN Anxiety 07/15/24 08/13/24 History omeprazole 20 mg capsule,delayed 20 mg PO QAM 07/15/24 08/13/24 History release paroxetine HCl 10 mg tablet 10 mg PO HS 07/15/24 08/13/24 History tramadol 50 mg tablet 50 mg PO UD PRN Pain 07/15/24 08/13/24 History naproxen 500 mg tablet 500 mg PO BID #30 tabs 07/16/24 08/13/24 Rx ibuprofen 600 mg tablet 600 mg PO BID PRN Pain 07/23/24 08/13/24 History multivitamin 2 cap PO DAILY 07/23/24 08/13/24 History tamsulosin 0.4 mg capsule 0.8 mg PO HS 07/23/24 08/13/24 History Patient History Medical History Hyperlipidemia History of back problems Bronchitis Poor historian Hydroureteronephrosis right kidney larger per pt. Osteoporosis Arthritis History of diverticulitis Kidney lesion, [place], right Hiatal hernia Large hiatal hernia- urology referred patient to general surgery per 07/16/24 office visit Abdominal wall hernia Acid reflux Hypothyroid HTN (hypertension) Anxiety Surgical History History of surgical procedure on mouth top teeth removed History of tubal ligation History of D&C History of surgery on left wrist pins and screws. History of cholecystectomy History of hysterectomy History of colonoscopy (2018) pain following procedure...urgent care visit and hospitalized for perforation...no sx intervention required. 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: No Beliefs That Will Affect Care: None marital status: Current Living Situation: Spouse How many Children do You have: 1 Feels Safe at Home: Yes during the past year weight has: remained stable Assistive Devices: Other Review of Systems Review of Systems: All systems reviewed & are unremarkable except as noted in HPI & below Physical Exam Constitutional: WD/WN, vitals as above Eyes: no conjunctival abnormality ENMT: Ears: no hearing impairment Mouth: no oropharynx abnormality Neck: trachea midline Respiratory: normal respiratory effort; no respiratory distress and no labored breathing Cardiovascular: Rate/Rhythm: regular rate and regular rhythm Gastrointestinal (Abdomen): Abdomen is soft with some slight distention. She had a well-healed midline incision. She did have a noted ventral hernia to the right of the midline. This was tender to palpation without overlying skin changes. She also was ten emilia to palpation in the right lower quadrant without rebound tenderness or guarding Musculoskeletal: No calf tenderness Skin: no rashes Neurologic: moves all extremities Psychiatric: A+Ox3, euthymic affect Results & Data Vital Signs (Past 12 Hours) Vital Signs Temp Pulse Pulse Resp BP BP Pulse Ox 08/13/24 18:30 77 15 147/79 H 95 08/13/24 18:13 84 20 150/74 H 96 08/13/24 17:01 72 08/13/24 16:00 36.2 C L 86 18 159/84 H 99 O2 Del Method 08/13/24 18:30 Room Air 08/13/24 18:13 Room Air 08/13/24 17:01 08/13/24 16:00 PG Care Time/CCT Total # of Minutes Spent Total Time Spent with Patient: Total time spent is greater than 50% in coordination of care (as documented) at patient's floor/unit and/or counseling patient: Coding Level of Care Code 47848 INT INP/OBS CARE 3/75MIN Diagnoses 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
[2024-08-13] MEDS ORDERED: ONDANSETRON INJ 2 MG/ML 2 ML VIAL ONE (19:58)
[2024-08-13] MEDS ORDERED: fentaNYL citrate PF 100 MCG/2 ML VIAL ONE ×3 (19:58→22:51)
[2024-08-13] MEDS ORDERED: LIDOCAINE 2% 2 ML VIAL/AMP(20MG/ML) INFIL ONE (19:58)
[2024-08-13] MEDS ORDERED: DEXAMETHASONE SOD INJ 4 MG/ML VIAL ONE (19:58)
[2024-08-13] MEDS ORDERED: PROPOFOL IV EMULSION 10 MG/ML 20 ML VIAL IV ONE (19:58)
[2024-08-13] MEDS ORDERED: SUCCINYLCHOLINE 100MG/5ML SYR IV ONE (20:00)
[2024-08-13] MEDS ORDERED: ROCURONIUM BROMIDE 10 MG/ML 5 ML VIAL IV ONE (20:00)
[2024-08-13] MEDS ORDERED: fentaNYL citrate PF 100 MCG/2 ML VIAL IV PRN (20:12)
[2024-08-13] MEDS ORDERED: ePHEDrine sulfate 50 MG/ML AMP IV PRN (20:12)
[2024-08-13] MEDS ORDERED: ONDANSETRON INJ 2 MG/ML 2 ML VIAL IV PRN (20:12)
[2024-08-13] MEDS ORDERED: ATROPINE SULFATE 0.1 MG/ML 10ML SYR IV PRN (20:12)
[2024-08-13 20:54] LABS: Partial Thromboplastin Time 28 Seconds (21-31); Prothrombin Time 10.6 Seconds (9.0-12.0)
[2024-08-13] MEDS ORDERED: SUGAMMADEX SODIUM 200 MG/2 ML VIAL IV ONE (21:02)
[2024-08-13] MEDS ORDERED: PHENYLEPHRINE 100MCG/ML 5ML SYR ONE ×2 (21:08→21:15)
--- NOTE | 2024-08-13 22:56 | Operative Report ---
PG Post Operative Report Pre & Post Diagnosis Operation Date: 08/13/24 19:30 Pre-Op Diagnosis: Cecal volvulus Post-Op Diagnosis: Cecal volvulus I identified the patient and participated in the time-out.: Yes Procedure Operation Date: 08/13/24 19:30 Actual Procedures p Exploratory Laparotomy, lysis of adhesions, ileocecectomy(Not Applicable) - Frieda Awan DO Surgeon Frieda Awan DO Websphere Portal Architect ARUNA Soliz Estimated Blood Loss 30 Findings See Below Cecal bascule, severely dilated cecum Specimens Ileocecectomy Drains None Anesthesia Type General Complications None Indications Patient presented with abdominal pain, evidence for cecal volvulus on CT with slight mesenteric swirling. Description of Procedure The patient was brought back to the operating room and placed on the operating room table in supine position. She was connected to cardiac and oxygen monitoring, supplemental O2 was provided and SCDs were applied to bilateral lower extremities. The patient was administered general anesthesia and a secure airway was established. A Garza catheter was inserted. The abdomen was prepped and draped in typical sterile fashion and a time out was conducted. The abdomen was entered at the midline with a 15 blade over a previous scar. Upon entering the abdomen, adhesions to bowel and omentum were lysed and the cecum was encountered dilated at the midline. As the cecum was mobilized, the terminal ileum was also brought into view and a demarcation was noted just proximal to the cecum and the anterior colon likely be location of torsion causing cecal bascule. The terminal ileum was not dilated. The colon was mobilized enough to reach uninvolved ascending colon. The mesentery from the terminal ileum to the ascending colon just distal to the right colic artery was transected. A [id number] ileocolic anastomosis was created using a blue loaded 60 mm UNRULY stapler. The enterotomy and colotomy common channel was sewn with 4-0 nylon suture in a canal stitch pattern followed by 3-0 silk sutures. The specimen side was then transected using an 80 mm purple loaded UNRULY stapler. A second ca rtridge was then used in the 60 UNRULY stapler to complete the full transection. The specimen was removed and placed in a label container to be sent to pathology for further analysis. The anastomosis was checked and was patent. There was no necrosis or ischemia to the bowel. Strong blood flow through the arterial system was also confirmed. The abdomen was irrigated with warm saline. Due to the patient's hiatal hernia there was difficulty in NG tube placement and palpation. There was some peristalsis of small bowel by the end of the procedure so an NG tube was not kept in place. The area was suctioned from the abdomen. The midline incision was closed using two 0 looped PDS sutures. 3-0 Vicryl suture was used to close subcutaneous tissue. The skin was closed with james. The Garza catheter was removed. The patient was awakened from anesthesia and a secure airway was removed. She tolerated the procedure well was transferred to recovery in stable condition. I attest to the content of the Intraoperative Record and any orders documented therein. Any exceptions are noted below.
--- NOTE | 2024-08-13 23:33 | Anesthesiology Progress Note ---
Date of Service August 13, 2024 Anesthesia Post Procedure Vital Signs Vital Signs: Temp Pulse Pulse Resp BP BP Pulse Ox 08/13/24 23:20 97.3 F L 89 16 134/75 95 08/13/24 23:10 97.3 F L 85 16 135/66 96 08/13/24 23:00 97.3 F L 85 16 128/71 95 08/13/24 19:54 97.9 F 81 20 141/71 H 97 08/13/24 19:30 121/86 08/13/24 18:30 77 15 147/79 H 95 08/13/24 18:13 84 20 150/74 H 96 08/13/24 17:01 72 08/13/24 16:00 97.2 F L 86 18 159/84 H 99 O2 Del Method O2 Flow Rate 08/13/24 23:20 Oxymask 2 08/13/24 23:10 Oxymask 2 08/13/24 23:00 Oxymask 2 08/13/24 19:54 Room Air 08/13/24 19:30 08/13/24 18:30 Room Air 08/13/24 18:13 Room Air 08/13/24 17:01 08/13/24 16:00 Pain Intensity Right Flank: Pain Intensity: 9 Transfer of Care Handoff Completed per policy Notes Mental Status: alert / awake / arousable and participated in evaluation Patient Amnestic to Procedure: Yes Nausea / Vomiting: adequately controlled Pain: adequately controlled Airway Patency, RR, SpO2: stable & adequate BP & HR: stable & adequate Hydration State: stable & adequate Anesthetic Complications: no major complications apparent and Pt Satisfied with anesthetic care
[2024-08-13] MEDS ORDERED: POLYETHYLENE (MIRALAX) 17 GM PACK PO PRN (23:36)
[2024-08-13] MEDS: SODIUM CHLORIDE 0.9% 1,000 ML IV SCH (23:52)
[2024-08-14] MEDS: HYDROmorphone INJ 0.5 MG/0.5 ML SYR IV PRN ×2 (00:10→17:55)
[2024-08-14] MEDS: PIPERACILLIN/TAZOBACTAM 4.5 GM/100 ML BAG IV SCH (00:35)
[2024-08-14] MEDS: BUPIVACAINE/EPINEPHRINE 0.5% MPF 1:200,000 30 ML VIAL ONE (01:41)
[2024-08-14] MEDS: ACETAMINOPHEN 1,000 MG/100 ML VIAL IV PRN (06:41)
--- NOTE | 2024-08-14 06:50 | Surgery Progress Note ---
Date of Service August 14, 2024 Assessment & Plan (1) Cecal volvulus: Plan 83F with a hiatal hernia was admitted with abdominal pain and CT evidence for cecal volvulus and suggested slight mesenteric swirling on 08/13/24 was taken to the OR for exploration last night, out of OR at 11pm. POD 1 s/p ileocecectomy for cecal bascule. She is afebrile with stable vital signs and pain controlled. She remains on 2L O2 via face mask post op. Encourage aggressive incentive spirometer use Encourage aggressive ambulation with assistance today Keep NPO until good bowel function as NGT is difficult to place secondary to hiatal hernia. Continue IVF and replete electrolytes as needed Pt is due to void just out of the OR last night Continue 24 hours of abx post surgery. Admission and Anticipated Discharge Date Admission Date: August 13, 2024 Subjective Pt states she is sore this am but feels she is ok. Denies nausea and is not yet passing flatus. Physical Exam Constitutional: cooperative; no acute distress, no altered mental status and not diaphoretic Respiratory: normal respiratory effort; no respiratory distress, no labored breathing and does not use accessory muscles On 2L O2 via face mask since the OR Gastrointestinal (Abdomen): Abdominal binder in place No lateral TTP Results & Data Vital Signs (Past 12 Hours) Vital Signs Temp Pulse Pulse Pulse Resp BP Pulse Ox 08/14/24 06:33 36.9 C 86 16 137/79 99 08/14/24 02:33 36.9 C 89 14 130/68 98 08/14/24 01:30 36.7 C 91 H 14 129/70 94 08/14/24 00:30 36.6 C 85 14 123/71 97 08/14/24 00:00 36.8 C 86 16 137/82 98 08/13/24 23:30 36.7 C 88 14 138/77 96 08/13/24 23:30 08/13/24 23:30 36.7 C 88 14 138/77 96 08/13/24 23:20 36.3 C L 89 16 134/75 95 08/13/24 23:10 36.3 C L 85 16 135/66 96 08/13/24 23:00 36.3 C L 85 16 128/71 95 08/13/24 19:54 36.6 C 81 20 141/71 H 97 08/13/24 19:30 121/86 O2 Del Method O2 Flow Rate 08/14/24 06:33 Oxymask 2 08/14/24 02:33 Room Air 08/14/24 01:30 Oxymask 2 08/14/24 00:30 Oxymask 2 08/14/24 00:00 Oxymask 2 08/13/24 23:30 Oxymask 2 08/13/24 23:30 Oxymask 2 08/13/24 23:30 Oxymask 2 08/13/24 23:20 Oxymask 2 08/13/24 23:10 Oxymask 2 08/13/24 23:00 Oxymask 2 08/13/24 19:54 Room Air 08/13/24 19:30 PG Care Time/CCT Total # of Minutes Spent Total Time Spent with Patient: Total time spent is greater than 50% in coordination of care (as documented) at patient's floor/unit and/or counseling patient: Coding Level of Care Code 41336 SUB INP/OBS CARE 08/17MIN Diagnoses 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
--- NOTE | 2024-08-14 07:01 | Billing Data ---
Date of Service August 13, 2024 Coding Level of Care Code 71682 INT INP/OBS CARE
[2024-08-14] MEDS: SODIUM CHLORIDE 0.9% 1,000 ML IV SCH (07:17)
[2024-08-14] MEDS: ACETAMINOPHEN 1,000 MG/100 ML VIAL IV SCH (07:29)
[2024-08-14 07:52] LABS: Basophils # (auto) 0.01 K/uL (0.00-0.20); Basophils % (auto) 0.1 %; Hematocrit (blood only) 32.3 % (37.0-47.0); Hemoglobin 10.3 g/dl (12.0-16.0); Immature Granulocytes # (auto) 0.04 K/uL (0.01-0.20); Immature Granulocytes % (auto) 0.4 %; Lymphocytes # (auto) 0.58 K/uL (1.20-3.40); Lymphocytes % (auto) 5.9 %; Mean Corpuscular Hemoglobin 27.2 pg (25.0-34.0); Mean Corpuscular Hgb Conc 31.9 g/dL (32.0-36.0); Mean Corpuscular Volume 85.2 fL (80.0-100.0); Mean Platelet Volume 9.7 fL (9.4-12.4); Monocytes % (auto) 5.1 %; Neutrophils # (auto) 8.72 K/uL (1.40-6.50); Neutrophils % (auto) 88.5 %; Platelet Count 257 K/uL (130-400); RDW Coefficient of Variation 13.8 % (11.5-14.5); RDW Standard Deviation 43.2 fL (36.4-46.3); Red Blood Count 3.79 M/uL (4.20-5.40); White Blood Count 9.85 K/ul (4.8-10.8)
[2024-08-14] MEDS: PANTOprazole 40 MG TAB PO SCH (07:55)
[2024-08-14 08:05] LABS: Albumin Globulin Ratio 1.3 (0.9-2); Albumin Level 3.5 gm/dl (3.4-5.0); Bilirubin,Total 0.6 mg/dl (0.2-1.0); Calcium 8.5 mg/dl (8.6-10.3); Creatinine Clr Calc Pharmacy 42.9 ml/min; Globulin 2.8 gm/dl (2.5-4.0); Potassium 4.2 mmol/L (3.5-5.1); Total Protein 6.3 gm/dl (6.0-8.3)
[2024-08-14] MEDS: LORazepam 1 MG TAB PO PRN (15:29)
--- NOTE | 2024-08-14 15:35 | Hospitalist Progress Note ---
Date of Service August 14, 2024 Assessment & Plan (1) N[place]ON (acute kidney injury): (2) Cecal volvulus: (3) Incarcerated ventral hernia: (4) HTN (hypertension): (5) Anxiety: (6) Hypothyroid: (7) Acid reflux: Plan This is a 83 y/o F w/ PMHx of HTN, HLD, OA, GERD, Anxiety, Hypothyroidism, and ventral hernia recently noted to be incarcerated who arrived to the ED due to severe abdominal pain of acute onset, and was admitted for management of cecal volvulus. Cecal volvulus - s/p ex lap w/ ileocecectomy on 08/13 w/ Dr. Stark-Vasile - gen surg following - Continue IV Zosyn - Stepwise pain control with tylenol for mild pain, dilaudid 0.25 mg for mode rate pain, and dilaudid 0.5 mg for severe pain - NPO status but allowed sips and chips. Continue IVF until patient is able to have diet. - CBC w/ stable hgb post surgery and no leukocytosis. BMP stable. Creatinine back WNL Incarcerated ventral hernia - Monitoring and management per general surgery team HTN - Home meds held while NPO Anxiety -Paroextine - Uses Ativan prn at home Hypothyroidism - Levothyroxine GERD - Omeprazole 20 mg daily --> transition to pantoprazole inpatient. VTE ppx: SCD Code Status: FULL CODE Discussed w/ general surgery TERE 08/14. Admission and Anticipated Discharge Date Admission Date: August 13, 2024 Subjective Patient seen and examined this morning. patient was sitting up in her chair at time of encounter. She noted some soreness in her abdomen but denied actual pain. She states she was up and moving around this morning. She had passed gas. States she takes prune juice at home to keep her bowel regular. denies any nausea or vomiting. she was hoping for a diet today. Physical Exam Constitutional: WD/WN, vitals as above Eyes: PERRL, conjunctivae normal, anicteric sclerae Respiratory: normal respiratory effort, lungs clear to auscultation Cardiovascular: RRR, no murmur, no edema Psychiatric: A+Ox3, euthymic affect Results & Data Results & Data Vital Signs (Past 12 Hours) Vital Signs Temp Pulse Resp BP Pulse Ox O2 Del Method O2 Flow Rate 08/14/24 14:12 36.6 C 100 H 16 156/80 H 98 Room Air 08/14/24 10:31 Room Air 08/14/24 10:30 95 Room Air 08/14/24 07:03 36.6 C 94 H 16 129/68 99 Oxymask 2 08/14/24 06:33 36.9 C 86 16 137/79 99 Oxymask 2 PG Care Time/CCT Total # of Minutes Spent Total Time Spent with Patient: Total time spent is greater than 50% in coordination of care (as documented) at patient's floor/unit and/or counseling patient: Coding Level of Care Code 18764 SUB INP/OBS CARE 2/35MIN Diagnoses NAPOLEON (acute kidney injury) N17.9 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
[2024-08-14] MEDS: TAMSULOSIN HCL 0.4 MG CAP PO SCH (20:01)
[2024-08-14] MEDS: PARoxetine HCL 10 MG TAB PO SCH (20:01)
[2024-08-15] MEDS: SODIUM CHLORIDE 0.9% 1,000 ML IV SCH (02:19)
[2024-08-15] MEDS: LEVOTHYROXINE SODIUM 25 MCG TABLET PO SCH (05:47)
[2024-08-15 09:26] LABS: Basophils # (auto) 0.04 K/uL (0.00-0.20); Basophils % (auto) 0.6 %; Eosinophils # (auto) 0.03 K/uL (0.00-0.50); Eosinophils % (auto) 0.5 %; Hematocrit (blood only) 30.2 % (37.0-47.0); Hemoglobin 9.5 g/dl (12.0-16.0); Immature Granulocytes # (auto) 0.02 K/uL (0.01-0.20); Immature Granulocytes % (auto) 0.3 %; Lymphocytes # (auto) 0.89 K/uL (1.20-3.40); Mean Corpuscular Hemoglobin 27.1 pg (25.0-34.0); Mean Corpuscular Hgb Conc 31.5 g/dL (32.0-36.0); Mean Corpuscular Volume 86.3 fL (80.0-100.0); Mean Platelet Volume 9.8 fL (9.4-12.4); Monocytes # (auto) 0.44 K/uL (0.11-0.59); Monocytes % (auto) 6.9 %; Neutrophils # (auto) 4.95 K/uL (1.40-6.50); Neutrophils % (auto) 77.7 %; Platelet Count 253 K/uL (130-400); RDW Coefficient of Variation 14.1 % (11.5-14.5); RDW Standard Deviation 44.8 fL (36.4-46.3); White Blood Count 6.37 K/ul (4.8-10.8)
[2024-08-15 09:34] LABS: Albumin Globulin Ratio 1.1 (0.9-2); Albumin Level 3.3 gm/dl (3.4-5.0); BUN Creatinine Ratio 16.8 (10-20); Bilirubin,Total 0.6 mg/dl (0.2-1.0); Calcium 8.1 mg/dl (8.6-10.3); Creatinine Clr Calc Pharmacy 45.1 ml/min; Globulin 3.1 gm/dl (2.5-4.0); Potassium 3.6 mmol/L (3.5-5.1); Total Protein 6.4 gm/dl (6.0-8.3)
--- NOTE | 2024-08-15 10:39 | Surgery Progress Note ---
Date of Service August 15, 2024 Assessment & Plan (1) Cecal volvulus: Plan: Patient is an 83-year-old female POD #2 s/p Ileocecectomy for cecal bascule. -Patient overall doing well this morning -Passing gas however no BM. Denies any nausea or vomiting overnight. Will attempt clear-liquids today and see how she does. -Slightly tachycardic this morning at 103, denies CP or SOB. No longer requiring any supplemental O2 -Afebrile and post-operative antibiotics have been completed -Encourage aggressive ambulation and OOB to chair -Abdominal binder was removed d/t being uncomfortable Admission and Anticipated Discharge Date Admission Date: August 13, 2024 Supervising Physician Co-Signing Physician Notes 83F with a known hiatal and ventral hernia was admitted with abdominal pain and CT evidence for cecal volvulus with suggested slight mesenteric swirling on 08/13/24 was taken to the OR for exploration that night. Now POD 2 s/p ileocecectomy for cecal bascule. She is afebrile with stable vital signs and pain controlled with mild incisional soreness. She is now on RA. Episode of confusion o/n as stated, AAOx3 this am. Encourage aggressive incentive spirometer use Encourage aggressive ambulation with assistance Will initiate clear liquids today as she has continued to pass flatus Continue IVF and replete electrolytes as needed No DVT ppx until H/H appears stable May discontinue abx. F/u am labs Subjective -Patient feeling generally well this morning, sitting up in chair during exam. -Overnight states she was confused, however this has happened to her in previous hospitalizations. This morning she is AAOx3 -Does have some incisional discomfort and states abdominal binder is uncomfortable for her -No BM, however is passing gas and denies any N/V -Hemodynamically stable, was slightly tachycardic this morning at 103. Denies CP or SOB -Afebrile and WBC 6.3 today Physical Exam Constitutional: WD/WN, vitals as above Respiratory: normal respiratory effort, lungs clear to auscultation Gastrointestinal (Abdomen): Abdominal binder removed, surgical dressing in place and is c/d/i Appropriate TTP over midline surgical site, otherwise abdomen is soft and nondistended Skin: no rashes, warm and dry Psychiatric: A+Ox3, euthymic affect Results & Data Vital Signs (Past 12 Hours) Vital Signs Temp Pulse Resp BP Pulse Ox O2 Del Method 08/15/24 07:11 36.6 C 103 H 18 129/84 93 Room Air PG Care Time/CCT Total # of Minutes Spent Total Time Spent with Patient: Total time spent is greater than 50% in coordination of care (as documented) at patient's floor/unit and/or counseling patient: Coding Level of Care Code 52360 Post Operative Follow-Up Diagnoses 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
--- NOTE | 2024-08-15 14:00 | Hospitalist Progress Note ---
Date of Service August 15, 2024 Assessment & Plan (1) N[place]ON (acute kidney injury): (2) Cecal volvulus: (3) Incarcerated ventral hernia: (4) HTN (hypertension): (5) Anxiety: (6) Hypothyroid: (7) Acid reflux: Plan This is a 83 y/o F w/ PMHx of HTN, HLD, OA, GERD, Anxiety, Hypothyroidism, and ventral hernia recently noted to be incarcerated who arrived to the ED due to severe abdominal pain of acute onset, and was admitted for management of cecal volvulus. Cecal volvulus - s/p ex lap w/ ileocecectomy on 08/13 w/ Dr. Stark-Vasile - gen surg following - Continue IV Zosyn - Stepwise pain control with tylenol for mild pain, dilaudid 0.25 mg for mode rate pain, and dilaudid 0.5 mg for severe pain -Advanced to clear liquid diet 08/15. - CBC w/ hgb of 9.5. No leukocytosis. BMP stable. LFT's elevated but downtrending, will continue to monitor. Incarcerated ventral hernia - Monitoring and management per general surgery team HTN - Home meds on hold - BP currently normotensive Anxiety -Paroextine HS - Uses Ativan prn at home Hypothyroidism - Levothyroxine GERD - Omeprazole 20 mg daily --> transition to pantoprazole inpatient. VTE ppx: SCD Code Status: FULL CODE Admission and Anticipated Discharge Date Admission Date: August 13, 2024 Subjective Patient seen and examined this morning. Patient states she had a rough night of sleep. States she usually takes something prior to bed for sleep at home and is unsure if she got it last night. She admits to soreness around her incision site. She continues to pass gas but denied any BMs thus far. 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
[2024-08-15] MEDS: MELATONIN 3 MG TAB PO PRN (20:07)
--- NOTE | 2024-08-16 09:25 | Surgery Progress Note ---
<Statement entered by Frieda Awan DO - 08/16/24 11:28> I have seen and examined this patient this am. She continues to pass gas and is having BMs, up and out of bed, ambulates, no F/C. WBC remains WNL and her H/H has stabilized. I agree with this plan and the patient may be discharged on a low fiber diet to follow up with me in the office in 2 weeks. Follow up with her PCP after discharge. Date of Service August 16, 2024 Assessment & Plan (1) Cecal volvulus: Plan: Patient is an 83-year-old female POD #3 s/p Ileocecectomy for cecal bascule. -Patient overall doing well from a surgical perspective -Passing gas and is now starting to have bowel movements. Denies any nausea or vomiting overnight and has tolerated full liquids. Will advance to low-fiber diet. -Slightly tachycardic this morning at 103, denies CP or SOB. No longer requiring any supplemental O2. Pending AM labs to evaluate for possible drop in H&H. EKG also has been ordered to further evaluate if any potential rhythm abnormalities. -Afebrile and post-operative antibiotics have been completed -Encourage aggressive ambulation and OOB to chair -If patient is able to tolerate low-fiber diet today, patient from a surgical standpoint would be appropriate for discharge. Patient will need to continue a low-fiber diet once discharged and she will have follow up with our clinic for post-operative check up. Admission and Anticipated Discharge Date Admission Date: August 13, 2024 Subjective Patient seen and evaluated this morning, patient states she feels well overall. Tolerating full liquids without any issues of abdominal pain, nausea, or vomiting Passing gas and had a recorded BM Still having some post-surgical pain, mostly with movement but overall pain is controlled Afebrile and denies fevers or chills Pending AM labs at this time, patient has been hemodynamically stable however still slightly tachycardic in the low 100s. She denies CP or SOB Physical Exam Constitutional: WD/WN, vitals as above Respiratory: normal respiratory effort, lungs clear to auscultation Cardiovascular: RRR, no murmur, no edema Gastrointestinal (Abdomen): Abdomen soft, nondistended, appropriate TTP over midline incisional site. 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
[2024-08-16 11:03] LABS: Basophils # (auto) 0.04 K/uL (0.00-0.20); Basophils % (auto) 0.6 %; Eosinophils % (auto) 2.8 %; Hematocrit (blood only) 29.2 % (37.0-47.0); Hemoglobin 9.4 g/dl (12.0-16.0); Immature Granulocytes # (auto) 0.03 K/uL (0.01-0.20); Immature Granulocytes % (auto) 0.4 %; Lymphocytes # (auto) 1.18 K/uL (1.20-3.40); Lymphocytes % (auto) 16.8 %; Mean Corpuscular Hemoglobin 27.4 pg (25.0-34.0); Mean Corpuscular Hgb Conc 32.2 g/dL (32.0-36.0); Mean Corpuscular Volume 85.1 fL (80.0-100.0); Mean Platelet Volume 9.8 fL (9.4-12.4); Monocytes # (auto) 0.46 K/uL (0.11-0.59); Monocytes % (auto) 6.5 %; Neutrophils # (auto) 5.12 K/uL (1.40-6.50); Neutrophils % (auto) 72.9 %; Platelet Count 239 K/uL (130-400); RDW Coefficient of Variation 13.9 % (11.5-14.5); RDW Standard Deviation 43.4 fL (36.4-46.3); Red Blood Count 3.43 M/uL (4.20-5.40); White Blood Count 7.03 K/ul (4.8-10.8)
[2024-08-16 11:22] LABS: Albumin Globulin Ratio 1.1 (0.9-2); Albumin Level 3.5 gm/dl (3.4-5.0); BUN Creatinine Ratio 16.7 (10-20); Bilirubin,Total 0.4 mg/dl (0.2-1.0); Calcium 9.1 mg/dl (8.6-10.3); Creatinine Clr Calc Pharmacy 47.6 ml/min; Globulin 3.3 gm/dl (2.5-4.0); Potassium 3.4 mmol/L (3.5-5.1); Total Protein 6.8 gm/dl (6.0-8.3)
--- NOTE | 2024-08-16 13:25 | Electrocardiogram Report ---
Test Reason : Blood Pressure : */* mmHG Vent. Rate : 102 BPM Atrial Rate : 102 BPM P-R Int : 180 ms QRS Dur : 78 ms QT Int : 356 ms P-R-T Axes : 67 35 36 degrees QTcB Int : 463 ms Sinus tachycardia Nonspecific ST abnormality Abnormal ECG When compared with ECG of 19-Nov-2020 14:39, No significant change was found Confirmed by Manuel Arshad ([id number]) on 08/16/2024 1:24:58 PM Referred By: REFERRED SELF Confirmed By: Manuel Arshad
--- NOTE | 2024-08-16 16:37 | Hospitalist Progress Note ---
Date of Service August 16, 2024 Assessment & Plan (1) [place] (acute kidney injury): (2) Cecal volvulus: (3) Incarcerated ventral hernia: (4) HTN (hypertension): (5) Anxiety: (6) Hypothyroid: (7) Acid reflux: Plan This is a 83 y/o F w/ PMHx of HTN, HLD, OA, GERD, Anxiety, Hypothyroidism, and ventral hernia recently noted to be incarcerated who arrived to the ED due to severe abdominal pain of acute onset, and was admitted for management of cecal volvulus. Cecal volvulus - s/p ex lap w/ ileocecectomy on 08/13 w/ Dr. Stark-Vasile - gen surg following - s/p IV Zosyn completed. - Stepwise pain control with tylenol for mild pain, dilaudid 0.25 mg for moderate pain, and dilaudid 0.5 mg for severe pain -Advanced to low fiber diet 08/16. - CBC w/ hgb of 9.4. No leukocytosis. BMP stable. LFT's downtrending, will continue to monitor. Incarcerated ventral hernia - Monitoring and management per general surgery team HTN - Home meds on hold - resume 08/17 AM. - EKG 08/16 - tachycardia Anxiety -Paroextine HS - Uses Ativan prn at home - continue inpatient. Hypothyroidism - Levothyroxine GERD - Omeprazole 20 mg daily --> transition to pantoprazole inpatient. VTE ppx: SCD Code Status: FULL CODE Updated and son at bedside 08/16 Discussed w/ general surgery via tigertext 08/16 Anticipate discharge home 08/17 pending stabilization of patient's pain and ability to tolerate diet. Admission and Anticipated Discharge Date Admission Date: August 13, 2024 Subjective Patient seen and examined this morning. Patient reported pain around her incision sites. Reports worse w/ movement. She has been moving her BMs. Denies nausea or vomiting. She was advanced to a low fiber diet for lunch but states she was in a lot of pain around the time it came so she did not tolerate it well. Physical Exam Constitutional: WD/WN, vitals as above Respiratory: normal respiratory effort, lungs clear to auscultation Cardiovascular: RRR, no murmur, no edema Psychiatric: A+Ox3, euthymic affect Results & Data Results & Data Vital Signs (Past 12 Hours) Vital Signs Temp Pulse Resp BP Pulse Ox O2 Del Method 08/16/24 14:35 36.5 C 102 H 18 159/89 H 93 Room Air 08/16/24 06:54 36.5 C 101 H 16 146/84 H 92 Room Air PG Care Time/CCT Total # of Minutes Spent Total Time Spent with Patient: Total time spent is greater than 50% in coordination of care (as documented) at patient's floor/unit and/or counseling patient: Coding Level of Care Code 62858 SUB INP/OBS CARE 2/35MIN Diagnoses [place] (acute kidney injury) N17.9 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
[2024-08-16] MEDS: ONDANSETRON INJ 2 MG/ML 2 ML VIAL IV PRN (19:43)
[2024-08-16] MEDS: ONDANSETRON INJ 2 MG/ML 2 ML VIAL IV STA (23:54)
[2024-08-16] MEDS: FAMOTIDINE 40 MG TABLET PO ONE (23:55)
[2024-08-17] MEDS: FAMOTIDINE 20MG IV PUSH 20 MG/5 ML SYR IV STA (00:45)
[2024-08-17] MEDS: LORazepam 2 MG/1 ML VIAL IV STA (04:06)
[2024-08-17 06:14] LABS: Hematocrit (blood only) 29.4 % (37.0-47.0); Hemoglobin 9.3 g/dl (12.0-16.0); Mean Corpuscular Hemoglobin 26.3 pg (25.0-34.0); Mean Corpuscular Hgb Conc 31.6 g/dL (32.0-36.0); Mean Corpuscular Volume 83.3 fL (80.0-100.0); Mean Platelet Volume 9.9 fL (9.4-12.4); Platelet Count 266 K/uL (130-400); RDW Coefficient of Variation 13.9 % (11.5-14.5); Red Blood Count 3.53 M/uL (4.20-5.40); White Blood Count 6.55 K/ul (4.8-10.8)
[2024-08-17 06:26] LABS: BUN Creatinine Ratio 14.9 (10-20); Creatinine Clr Calc Pharmacy 45.6 ml/min; Potassium 3.5 mmol/L (3.5-5.1)
[2024-08-17] MEDS: dilTIAZem HCL 240 MG CAPCR PO SCH (08:04)
--- NOTE | 2024-08-17 09:17 | XRay Report ---
KUB HISTORY: abdominal pain, vomiting s/p ileocecectomy COMPARISON STUDY: CT of 08/13/2024 FINDINGS: There is stable diffuse gaseous distention of the colon. There is interval distention of mu ltiple small bowel loops measuring up to 5 cm diameter. No gross free air seen. IMPRESSION: Progressive bowel distention consistent with bowel obstruction. ACT 112: Negative or not required by law. The above report was generated using voice recognition software. It may contain grammatical, syntax o r spelling errors. Electronically signed by: Alonso Erwin M.D. 08/17/2024 9:14 AM
--- NOTE | 2024-08-17 10:02 | Surgery Progress Note ---
Date of Service August 17, 2024 Assessment & Plan (1) Cecal volvulus: Plan: POD #4 s/p exploratory laparotomy for cecal volvulus, right colon resection and reanastomosis. Apparent postoperative ileus. NG tube in place. We will keep her n.p.o. Awaiting bowel function return. Admission and Anticipated Discharge Date Admission Date: August 13, 2024 Subjective POD #4 s/p exploratory laparotomy with right colon resection for cecal volvulus. Overnight she developed significant pain and vomiting. An NG tube was placed. X-ray demonstrates ileus versus obstruction. Currently she is feeling better. NG tube is draining bilious fluid. No further nausea. Minimal pain. Physical Exam Physical Exam: NAD, ANO x 3 Abdomen: Soft, mild distention, mild tenderness to palpation at incision NG tube in place draining bilious fluid Results & Data Vital Signs (Past 12 Hours) Vital Signs Temp Pulse Resp BP Pulse Ox O2 Del Method 08/17/24 06:58 36.7 C 108 H 16 145/86 H 93 Room Air Laboratory Results 08/17/24 08/16/24 Range/Units 05:32 10:36 WBC 6.55 7.03 (4.8-10.8) K/ul RBC 3.53 L 3.43 L (4.20-5.40) M/uL Hgb 9.3 L 9.4 L (12.0-16.0) g/dl Hct 29.4 L 29.2 L (37.0-47.0) % MCV 83.3 85.1 (80.0-100.0) fL MCH 26.3 27.4 (25.0-34.0) pg MCHC 31.6 L 32.2 (32.0-36.0) g/dL RDW Std Deviation 42.0 43.4 (36.4-46.3) fL RDW Coeff of Angy 13.9 13.9 (11.5-14.5) % Plt Count 266 239 (130-400) K/uL MPV 9.9 9.8 (9.4-12.4) fL Immature Gran % (Auto) 0.4 % Neut % (Auto) 72.9 % Lymph % (Auto) 16.8 % Mckean % (Auto) 6.5 % Eos % (Auto) 2.8 % Baso % (Auto) 0.6 % Neut # (Auto) 5.12 (1.40-6.50) K/uL Lymph # (Auto) 1.18 L (1.20-3.40) K/uL Mckean # (Auto) 0.46 (0.11-0.59) K/uL Eos # (Auto) 0.20 (0.00-0.50) K/uL Baso # (Auto) 0.04 (0.00-0.20) K/uL Immature Gran # (Auto) 0.03 (0.01-0.20) K/uL Sodium 135 L 136 (136-145) mmol/L Potassium 3.5 3.4 L (3.5-5.1) mmol/L Chloride 102 106 (98-107) mmol/L Carbon Dioxide 26 24 (21-32) mmol/L Anion Gap 7 6 (3-11) BUN 14 15 (6-23) mg/dl Creatinine 0.94 0.90 (0.6-1.2) mg/dl Est Cr Clr Drug Dosing 45.6 47.6 ml/min eGFR 60.58 63.83 BUN/Creatinine Ratio 14.9 16.7 (10-20) Glucose 127 H 103 H (70-99(Fasting)) mg/dl Calcium 9.0 9.1 (8.6-10.3) mg/dl Total Bilirubin 0.4 (0.2-1.0) mg/dl AST 35 (13-39) U/L ALT 65 H (7-52) U/L Alkaline Phosphatase 62 (34-104) U/L Total Protein 6.8 (6.0-8.3) gm/dl Albumin 3.5 (3.4-5.0) gm/dl Globulin 3.3 (2.5-4.0) gm/dl Albumin/Globulin Ratio 1.1 (0.9-2)
[2024-08-17] MEDS: SODIUM CHLORIDE 0.9% 500 ML IV SCH (10:39)
--- NOTE | 2024-08-17 14:26 | Hospitalist Progress Note ---
Date of Service August 17, 2024 Assessment & Plan (1) NAPOLEON (acute kidney injury): (2) Cecal volvulus: (3) Incarcerated ventral hernia: (4) Postoperative ileus: (5) HTN (hypertension): (6) Anxiety: (7) Hypothyroid: (8) Acid reflux: Plan This is a 83 y/o F w/ PMHx of HTN, HLD, OA, GERD, Anxiety, Hypothyroidism, and ventral hernia recently noted to be incarcerated who arrived to the ED due to severe abdominal pain of acute onset, and was admitted for management of cecal volvulus. Cecal volvulus - s/p ex lap w/ ileocecectomy on 08/13 w/ Dr. Awan - gen surg following - s/p IV Zosyn completed. - Stepwise pain control with tylenol for mild pain, dilaudid 0.25 mg for moderate pain, and dilaudid 0.5 mg for severe pain -Advanced to low fiber diet 08/16, but now NPO due to post op ileus - CBC w/ hgb of 9.3. No leukocytosis. BMP stable. LFT's downtrending, will continue to monitor. Post op ileus s/p ex lap w/ ileocecectomy - Surgery following - NG with suction - NPO - IV NSS @ 80mL/hr - Converted PO meds to IV where able Incarcerated ventral hernia - Monitoring and management per general surgery team HTN - Dilt currently on hold d/t NPO status. Will monitor BP closely. - EKG 08/16 - tachycardia Anxiety -Paroextine HS - Uses Ativan prn at home - continue inpatient. Hypothyroidism - Levothyroxine GERD - Omeprazole 20 mg daily --> transition to pantoprazole inpatient. VTE ppx: SCD Code Status: FULL CODE Updated and son at bedside 08/16 Discussed w/ general surgery via tigertext 08/16 Admission and Anticipated Discharge Date Admission Date: August 13, 2024 Subjective Elizabeth is POD #4 s/p exploratory laparotomy with right colon resection for cecal volvulus. Overnight she developed significant pain and vomiting, an NG tube was placed and hooked to suction, NG tube is draining bilious fluid. CXR demonstrates ileus versus obstruction. Reports that she has had a few bowel movements, dark in color, no obvious blood. Reports that pain is significantly improved and minimal at this time. Review of Systems Constitutional: no fever and no chills Respiratory: no cough and no dyspnea Cardiovascular: no chest pain, no dyspnea and no lightheadedness Gastrointestinal: + change in stools (Loose, dark s/p surg noelle); no abdominal pain, no nausea and no vomiting Genitourinary: no dysuria, no difficulty urinating, no urinary frequency, no u rinary hesitancy and no urinary urgency Integumentary: no rash Physical Exam Constitutional: WD/WN, vitals as above Eyes: PERRL, conjunctivae normal, anicteric sclerae Respiratory: normal respiratory effort, lungs clear to auscultation Cardiovascular: RRR, no murmur, no edema Extremities: no edema Gastrointestinal (Abdomen): Inspection/Auscultation: + hypoactive bowel sounds Midline abdominal dressing in place Skin: no rashes Psychiatric: Orientation: alert and oriented x 3 Results & Data Results & Data Vital Signs (Past 12 Hours) Vital Signs Temp Pulse Resp BP Pulse Ox O2 Del Method 08/17/24 06:58 36.7 C 108 H 16 145/86 H 93 Room Air Laboratory Results 08/17/24 Range/Units 05:32 WBC 6.55 (4.8-10.8) K/ul RBC 3.53 L (4.20-5.40) M/uL Hgb 9.3 L (12.0-16.0) g/dl Hct 29.4 L (37.0-47.0) % MCV 83.3 (80.0-100.0) fL MCH 26.3 (25.0-34.0) pg MCHC 31.6 L (32.0-36.0) g/dL RDW Std Deviation 42.0 (36.4-46.3) fL RDW Coeff of Angy 13.9 (11.5-14.5) % Plt Count 266 (130-400) K/uL MPV 9.9 (9.4-12.4) fL Sodium 135 L (136-145) mmol/L Potassium 3.5 (3.5-5.1) mmol/L Chloride 102 (98-107) mmol/L Carbon Dioxide 26 (21-32) mmol/L Anion Gap 7 (3-11) BUN 14 (6-23) mg/dl Creatinine 0.94 (0.6-1.2) mg/dl Est Cr Clr Drug Dosing 45.6 ml/min eGFR 60.58 BUN/Creatinine Ratio 14.9 (10-20) Glucose 127 H (70-99(Fasting)) mg/dl Calcium 9.0 (8.6-10.3) mg/dl PG Care Time/CCT Total # of Minutes Spent Total Time Spent with Patient: Total time spent is greater than 50% in coordination of care (as documented) at patient's floor/unit and/or counseling patient: C[place] [address] SUB INP/OBS CARE 2/35MIN Patient Type Established Medical Decision Making Moderate Complexity Diagnoses N[place]LEON (acute kidney injury) N17.9 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 Incarcerated ventral hernia K43.6 Postoperative ileus K91.89; K56.7 HTN (hypertension) I10 Anxiety F41.9 Hypothyroid E03.9 Acid reflux K21.9
[2024-08-17] MEDS: LORazepam 2 MG/1 ML VIAL IV PRN ×2 (16:07→21:40)
[2024-08-17] MEDS: NSS + 20MEQ KCL 20 MEQ/1,000 ML BAG IV SCH (18:19)
[2024-08-17] MEDS: ACETAMINOPHEN 1,000 MG/100 ML VIAL IV PRN (21:40)
[2024-08-18 06:59] LABS: Hematocrit (blood only) 27.3 % (37.0-47.0); Hemoglobin 8.7 g/dl (12.0-16.0); Mean Corpuscular Hemoglobin 26.6 pg (25.0-34.0); Mean Corpuscular Hgb Conc 31.9 g/dL (32.0-36.0); Mean Corpuscular Volume 83.5 fL (80.0-100.0); Mean Platelet Volume 9.6 fL (9.4-12.4); Platelet Count 254 K/uL (130-400); RDW Standard Deviation 42.3 fL (36.4-46.3); Red Blood Count 3.27 M/uL (4.20-5.40); White Blood Count 4.74 K/ul (4.8-10.8)
[2024-08-18] MEDS: PANTOprazole 40 MG/10 ML SYR IV SCH (07:22)
[2024-08-18 07:23] LABS: BUN Creatinine Ratio 12.5 (10-20); Calcium 8.8 mg/dl (8.6-10.3); Creatinine Clr Calc Pharmacy 44.6 ml/min; Magnesium 1.8 mg/dl (1.7-2.4); Potassium 3.6 mmol/L (3.5-5.1)
[2024-08-18] MEDS ORDERED: PANTOprazole 40 MG/10 ML SYR IV ONE (08:00)
--- NOTE | 2024-08-18 10:24 | Surgery Progress Note ---
Date of Service August 18, 2024 Assessment & Plan (1) Cecal volvulus: Plan: POD #5 s/p exploratory laparotomy for cecal volvulus, right colon resection and reanastomosis. Apparent postoperative ileus Now resolving. May begin clear liquids at this time. Will advance slowly. Admission and Anticipated Discharge Date Admission Date: August 13, 2024 Subjective feeling much better this morning. No further nausea or vomiting. Large amount of flatus. No pain. Physical Exam Physical Exam: NAD, ANO x 3 Abdomen: Soft, mild distention, mild tenderness to palpation at incision Results & Data Vital Signs (Past 12 Hours) Vital Signs Temp Pulse Resp BP Pulse Ox O2 Del Method 08/18/24 07:45 36.8 C 94 H 16 145/76 H 93 Room Air
--- NOTE | 2024-08-18 14:54 | Hospitalist Progress Note ---
Date of Service August 18, 2024 Assessment & Plan (1) N[place]ON (acute kidney injury): (2) Cecal volvulus: (3) Incarcerated ventral hernia: (4) Postoperative ileus: (5) HTN (hypertension): (6) Anxiety: (7) Hypothyroid: (8) Acid reflux: Plan This is a 83 y/o F w/ PMHx of HTN, HLD, OA, GERD, Anxiety, Hypothyroidism, and ventral hernia recently noted to be incarcerated who arrived to the ED due to severe abdominal pain of acute onset, and was admitted for management of cecal volvulus. Cecal volvulus - s/p ex lap w/ ileocecectomy on 08/13 w/ Dr. Awan - gen surg following - s/p IV Zosyn completed. - Stepwise pain control with tylenol for mild pain, dilaudid 0.25 mg for moderate pain, and dilaudid 0.5 mg for severe pain - Clear liquid diet, advance as tolerated. - CBC w/ hgb of 9.3. No leukocytosis. BMP stable. LFT's downtrending, will co ntinue to monitor. Post op ileus s/p ex lap w/ ileocecectomy - Surgery following. - Improving. NG tube removed. - Liquid diet, advance as tolerated. - IV NSS @ 80mL/hr Incarcerated ventral hernia - Monitoring and management per general surgery team HTN - Dilt - EKG 08/16 - tachycardia Anxiety -Paroextine HS - Uses Ativan prn at home - continue inpatient. Hypothyroidism - Levothyroxine GERD - Omeprazole 20 mg daily --> transition to pantoprazole inpatient. VTE ppx: SCD Code Status: FULL CODE Admission and Anticipated Discharge Date Admission Date: August 13, 2024 Subjective Elizabeth is sitting in her chair, family at the bedside. She reports feeling much improved today. States that she accidentally pulled her NG tube out overnight, didn't realize what she was doing until it was out and the nurse saw her. NG tube did not need reinserted at the time since patient symptoms were much improved. She states that she is feeling well, much better than yesterday. Denies any abdominal pain. She has been taking small sips of water without issues. She is no longer nauseous or vomiting. No bowel movements since early yesterday AM. + Flatus. If she does have intermittent abdominal discomfort, it is relieved with flatus. Review of Systems Constitutional: no fever and no chills Respiratory: no cough and no dyspnea Cardiovascular: no chest pain, no dyspnea and no lightheadedness Gastrointestinal: no abdominal pain, no nausea, no vomiting and no dysphagia Genitourinary: no dysuria, no difficulty urinating, no urinary frequency, no urinary hesitancy and no urinary urgency Integumentary: no rash Physical Exam Constitutional: WD/WN, vitals as above Eyes: PERRL, conjunctivae normal, anicteric sclerae Respiratory: normal respiratory effort, lungs clear to auscultation Cardiovascular: RRR, no murmur, no edema Extremities: no edema Gastrointestinal (Abdomen): Inspection/Auscultation: normal bowel sounds Skin: no rashes Psychiatric: Orientation: alert and oriented x 3 Results & Data Results & Data Vital Signs (Past 12 Hours) Vital Signs Temp Pulse Resp BP Pulse Ox O2 Del Method 08/18/24 14:35 36.8 C 95 H 18 166/94 H 95 Room Air 08/18/24 07:45 36.8 C 94 H 16 145/76 H 93 Room Air Laboratory Results 08/18/24 Range/Units 06:23 WBC 4.74 L (4.8-10.8) K/ul RBC 3.27 L (4.20-5.40) M/uL Hgb 8.7 L (12.0-16.0) g/dl Hct 27.3 L (37.0-47.0) % MCV 83.5 (80.0-100.0) fL MCH 26.6 (25.0-34.0) pg MCHC 31.9 L (32.0-36.0) g/dL RDW Std Deviation 42.3 (36.4-46.3) fL RDW Coeff of Angy 14.0 (11.5-14.5) % Plt Count 254 (130-400) K/uL MPV 9.6 (9.4-12.4) fL Sodium 138 (136-145) mmol/L Potassium 3.6 (3.5-5.1) mmol/L Chloride 108 H (98-107) mmol/L Carbon Dioxide 23 (21-32) mmol/L Anion Gap 7 (3-11) BUN 12 (6-23) mg/dl Creatinine 0.96 (0.6-1.2) mg/dl Est Cr Clr Drug Dosing 44.6 ml/min eGFR 59.07 BUN/Creatinine Ratio 12.5 (10-20) Glucose 87 (70-99(Fasting)) mg/dl Calcium 8.8 (8.6-10.3) mg/dl Magnesium 1.8 (1.7-2.4) mg/dl PG Care Time/CCT Total # of Minutes Spent Total Time Spent with Patient: Total time spent is greater than 50% in coordination of care (as documented) at patient's floor/unit and/or counseling patient: Coding [place] [address] SUB INP/OBS CARE 2/35MIN Patient Type Established Medical Decision Making Moderate Complexity Diagnoses [place] (acute kidney injury) N17.9 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 Incarcerated ventral hernia K43.6 Postoperative ileus K91.89; K56.7 HTN (hypertension) I10 Anxiety F41.9 Hypothyroid E03.9 Acid reflux K21.9
--- NOTE | 2024-08-19 07:08 | Surgery Progress Note ---
Date of Service August 19, 2024 Assessment & Plan (1) Cecal volvulus: Plan 83F with a hiatal hernia was admitted with abdominal pain and CT evidence for cecal volvulus and suggested slight mesenteric swirling on 08/13/24 was taken to the OR for exploration POD 6 s/p ileocecectomy for cecal bascule. Resolving post op ileus. She is afebrile continues with mild sinus tachycardia stable otherwise and pain controlled with pain medications. Encourage aggressive incentive spirometer use Encourage aggressive ambulation with assistance today Advanced to fulls for this am Admission and Anticipated Discharge Date Admission Date: August 13, 2024 Subjective Pt has been seen and examined this am. This am she is denying abdominal pain, nausea or vomiting. Recalls she had some issues on Monday that she feels have resolved and would like to try something more today. Physical Exam Constitutional: not ill appearing, not in distress and not diaphoretic Respiratory: normal respiratory effort; no respiratory distress, no labored breathing and does not use accessory muscles Gastrointestinal (Abdomen): Percussion/Palpation: abdomen soft; abdomen nontender and no guarding incision midline with james is intact without drainage or erythema PG Care Time/CCT Total # of Minutes Spent Total Time Spent with Patient: Total time spent is greater than 50% in coordination of care (as documented) at patient's floor/unit and/or counseling patient: Coding Level of Care Code 96423 Post Operative Follow-Up Diagnoses 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
[2024-08-19] MEDS ORDERED: ACETAMINOPHEN 500 MG TAB PO PRN (08:19)
[2024-08-19] MEDS ORDERED: traMADol HCL 50 MG TABLET PO PRN (08:19)
--- NOTE | 2024-08-19 12:31 | Hospitalist Progress Note ---
Date of Service August 19, 2024 Assessment & Plan (1) [place] (acute kidney injury): (2) Cecal volvulus: (3) Incarcerated ventral hernia: (4) Postoperative ileus: (5) HTN (hypertension): (6) Anxiety: (7) Hypothyroid: (8) Acid reflux: Plan This is a 83 y/o F w/ PMHx of HTN, HLD, OA, GERD, Anxiety, Hypothyroidism, and ventral hernia recently noted to be incarcerated who arrived to the ED due to severe abdominal pain of acute onset, and was admitted for management of cecal volvulus. Cecal volvulus S/p ex lap w/ ileocecectomy on 08/13 w/ Dr. Stark-Vasile Gen surg following - completed zosyn. Advanced to full liquid diet, if tolerating for lunch can advance to low fiber for dinner. Will switch to PO pain control with tylenol and tramadol. encourage ambulation Post op ileus s/p ex lap w/ ileocecectomy Surgery following. NG tube removed overnight, pt without pain, with positive gas and stool. Ileus seems to be resolved. Incarcerated ventral hernia Monitoring and management per general surgery team HTN Diltazem resumed. Tachycardia seems to have resolved as well. Anxiety -Paroextine HS - Uses Ativan prn at home - continue inpatient, switched to PO Hypothyroidism - Levothyroxine resumed GERD - continue PPI Dispo: continued inpatient stay, hopeful for discharge tomrorow 08/20 VTE ppx: SCD updated at bedside 08/[address] Lincoln Burnette 08/19 Admission and Anticipated Discharge Date Admission Date: August 13, 2024 Subjective Patient seen sitting up in the chair. Reports that she has been ambulating in the buenrostro. Has been passing gas. tolerating clear liquid diet with out issue Review of Systems Review of Systems: All systems reviewed & are unremarkable except as noted in Subjective Physical Exam Physical Exam: General: NAD, VS as above, sitting up in bed Resp: normal respiratory effort, lungs clear to auscultation CV: RRR, no murmur, Abd: + bowel sounds, non tender, Extremities: Moves all extremities, no edema Neuro: A&O x3, Results & Data Results & Data Vital Signs (Past 12 Hours) Vital Signs Temp Pulse Resp BP Pulse Ox O2 Del Method 08/19/24 07:52 97.9 F 71 18 148/83 H 95 Room Air PG Care Time/CCT Total # of Minutes Spent Total Time Spent with Patient: Total time spent is greater than 50% in coordination of care (as documented) at patient's floor/unit and/or counseling patient: Coding Level of Care Code 55240 SUB INP/OBS CARE 2/35MIN Diagnoses [place] (acute kidney injury) N17.9 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 Incarcerated ventral hernia K43.6 Postoperative ileus K91.89; K56.7 HTN (hypertension) I10 Anxiety F41.9 Hypothyroid E03.9 Acid reflux K21.9
[2024-08-19] MEDS: LORazepam 1 MG TAB PO PRN (15:33)
[2024-08-19] MEDS ORDERED: SIMETHICONE 80 MG CHEW PO PRN (23:38)
--- NOTE | 2024-08-20 00:48 | Communication Note ---
Date of Service: August 20, 2024 Notified by nursing that patient developed severe abdominal pain and nausea. IV Tylenol and Zofran was given to patient. She shortly then had an episode of emesis that patient described as coffee ground emesis. V/S 135/72 HR78 SPO2 94 Temp 36.7 RR18. PE: Abdomen tender upon palpation, no guarding. Hyperactive sounds.KUB with findings of increase bowel loops, concerning of bowel obstruction. Ct Abdomen/Pelvis: . Dilated small and large bowel loops with multiple air-fluid levels, no obstructing lesion identified, suspicious of subacute obstruction. Hgb stable at 8.7. Patient placed on NPO, Protonix 40 IV mg BID started. Patient agreed with NG tube, will place it now. Surgery PA was contacted, who evaluated the patient. Aprec recommendations.
[2024-08-20] MEDS: ONDANSETRON INJ 2 MG/ML 2 ML VIAL IV STA (00:59)
[2024-08-20 01:23] LABS: Basophils # (auto) 0.03 K/uL (0.00-0.20); Basophils % (auto) 0.5 %; Eosinophils # (auto) 0.19 K/uL (0.00-0.50); Eosinophils % (auto) 3.2 %; Hematocrit (blood only) 26.8 % (37.0-47.0); Hemoglobin 8.7 g/dl (12.0-16.0); Immature Granulocytes # (auto) 0.02 K/uL (0.01-0.20); Immature Granulocytes % (auto) 0.3 %; Lymphocytes # (auto) 0.98 K/uL (1.20-3.40); Lymphocytes % (auto) 16.4 %; Mean Corpuscular Hemoglobin 26.8 pg (25.0-34.0); Mean Corpuscular Hgb Conc 32.5 g/dL (32.0-36.0); Mean Corpuscular Volume 82.5 fL (80.0-100.0); Mean Platelet Volume 9.6 fL (9.4-12.4); Monocytes # (auto) 0.53 K/uL (0.11-0.59); Monocytes % (auto) 8.9 %; Neutrophils # (auto) 4.23 K/uL (1.40-6.50); Neutrophils % (auto) 70.7 %; Platelet Count 252 K/uL (130-400); RDW Coefficient of Variation 14.1 % (11.5-14.5); RDW Standard Deviation 41.8 fL (36.4-46.3); Red Blood Count 3.25 M/uL (4.20-5.40); White Blood Count 5.98 K/ul (4.8-10.8)
[2024-08-20 01:38] LABS: Albumin Globulin Ratio 1.1 (0.9-2); Albumin Level 3.4 gm/dl (3.4-5.0); BUN Creatinine Ratio 16.2 (10-20); Bilirubin,Total 0.3 mg/dl (0.2-1.0); Calcium 9.1 mg/dl (8.6-10.3); Creatinine Clr Calc Pharmacy 43.3 ml/min; Globulin 3.1 gm/dl (2.5-4.0); Potassium 3.5 mmol/L (3.5-5.1); Total Protein 6.5 gm/dl (6.0-8.3)
[2024-08-20 01:47] LABS: Prothrombin Time 10.9 Seconds (9.0-12.0)
[2024-08-20] MEDS: PROCHLORPERAZINE 10 MG in SYRINGE 8 ML IV PRN (02:30)
--- NOTE | 2024-08-20 02:35 | Communication Note ---
Date of Service: August 20, 2024 Was contacted by the medical service around 0045 stating that the patient had an episode of emesis. The patient was seen and evaluated early this morning. She is resting comfortably in bed and VSS. Her surgical site is c/d/i and james in place without any overlying signs of infection. She does have some tenderness in the epigastric region. Patient states she is having some upper abdominal pain and intermittently does feel nauseous. She states that after taking her evening medications she had gotten sick shortly afterwards. Medical team had ordered repeat labs which are stable at this time. CT imaging is pending at this time. The patient denies any ongoing N/V at the time of my evaluation. However I did discuss with both her, and the hospitalist, that if she has any additional N/V she will require NGT placement.
--- NOTE | 2024-08-20 02:55 | XRay Report ---
EXAM: XR KUB/Abdomen 1 view CLINICAL HISTORY: abd pain distention TECHNIQUE: X-ray images of the abdomen were obtained in supine positions. COMPARISON: Radiograph dated 08/17/2024. FINDINGS: Gas Pattern: Multiple dilated air-filled small bowel loops are seen in the center of the abdomen, measuring up to 6.2 cm in maximum dimension. Air is seen in the rectum. No evidence of pneumoperitoneum. Soft Tissues: Soft tissues of the abdomen appear normal without evidence of masses or calcifications. The liver, spleen, and kidneys are of normal size and position. Metallic surgical clips are seen in the midline and the right upper quadrant. Bones: Degenerative changes in the visualized spine with levoscoliotic deformity of the lumbar spine. IMPRESSION: 1. Multiple dilated air-filled small bowel loops are seen in the center of the abdomen, measuring up to 6.2 cm in maximum dimension, increased as compared to the previous radiograph. Findings are concerning for bowel obstruction. 2. Midline metallic surgical clips indicate recent surgery. 3. Clinical correlation is suggested. Electronically signed by Opal Centeno 08-20-2024 02:54 AM
--- NOTE | 2024-08-20 03:40 | CT Scan Report ---
EXAM: CT abd pelvis wo con CLINICAL HISTORY: Abdominal pain, coffee ground emesis TECHNIQUE: Non-contrast CT of the abdomen and pelvis was performed, with the following protocol: axial images, and reconstructed coronal and sagittal images. No intravenous contrast was administered. One of the following dose reduction techniques was utilized for this exam: Automated exposure control, adjustment of the mA and/or kV according to patient size, and use of iterative reconstruction. COMPARISON: CR 08/20/2024 FINDINGS: Abdomen: A large hiatal hernia noted, showing most of the fundus and body at the posterior mediastinum. Bowel: Grossly dilated small bowel loops from the level of the proximal jejunum show multiple air-fluid levels. The large bowel is dilated as well; no obstructing lesion identified. The sigmoid colon shows multiple diverticulae and no signs of diverticulitis. Liver: Normal in size, shape, and density. No focal lesions, cysts, or masses were identified. Gallbladder and Biliary System: The gallbladder is surgically removed. Pancreas: Pancreatic head, body, and tail are visualized and appear normal in size and density. No pancreatic masses or calcifications were noted. Spleen: Normal in size, shape, and density. No splenic lesions or masses were identified. Kidneys and Adrenal Glands: The right kidney shows mild hydronephrosis; no renal or ureteric calculi were detected. The left kidney is normal in size, shape, and position. Cortical thickness is within normal limits. No renal calculi or hydronephrosis. Adrenal glands are unremarkable. Appendix: The appendix not seen. Pelvis: Urinary Bladder: Normal in contour and wall thickness. No intraluminal lesions. Uterus and pelvic organs: not seen. Peritoneal and Retroperitoneal Structures: A small amount of free fluid is noted in the pelvis. No lymphadenopathy was noted. Bones and Soft Tissues: Lumbar levoscoliosis noted. No fractures or abnormal masses were identified. Scanned lower chest shows minimal left pleural effusion, with atelectatic changes. IMPRESSION: 1. Dilated small and large bowel loops with multiple air-fluid levels, no obstructing lesion identified, suspicious of subacute obstruction; clinical correlation and further assessment with contrast study are advised. As noted with previous CR. 2. A large hiatus hernia. 3. Small free fluid noted at the pelvis. 4. Mild right sided hydronephrosis, no renal or ureteric calculus detected. 5. Left pleural effusion. Electronically signed by Opal Centeno 08-20-2024 03:39 AM
[2024-08-20] MEDS: LORazepam 2 MG/1 ML VIAL IV STA (06:14)
[2024-08-20] MEDS: PANTOprazole 40 MG/10 ML SYR IV SCH (07:25)
--- NOTE | 2024-08-20 07:37 | Surgery Progress Note ---
Date of Service August 20, 2024 Assessment & Plan (1) Postoperative ileus: Plan: Developed N/V last night after medication NGT in place , ordered KUB to check placement Repeat KUB tomorrow AM abd soft TTP epigastric area , james CDI no s/s infection CT from this AM without concerns of anastomotic leak , however showing dilated loops of sm and lg bowel IV fluids while NPO Will follow along closely Admission and Anticipated Discharge Date Admission Date: August 13, 2024 Supervising Physician Co-Signing Physician Notes Patient seen and examined, labs and imaging reviewed, agree with above. Status post right hemicolectomy for cecal bascule, was on diet but developed nausea vomiting overnight. NG tube placed, her abdomen feels better. She did have bowel movement and passed some gas this morning. The NG tube makes her uncomfortable. On exam she is afebrile stable vitals. Her abdomen is soft, moderately distended, incision without infection or hernia. Overnight CT scan and this morning's KUB were personally viewed and interpreted. Agree with the assessment of suspected postoperative ileus, no evidence of anastomotic leak or obstruction. Will continue NG tube today, she continues to have good bowel function and her KUB is improved tomorrow, will likely remove the NG tube and st art her on clear liquids again. Subjective Pt seen at bedside reports not feeling that great discomfort from NGT /Epigastric pain Review of Systems Constitutional: no fever and no chills Respiratory: no dyspnea Gastrointestinal: + abdominal pain, + nausea and + vomitin g Physical Exam Constitutional: cooperative; no acute distress and + uncomfortable Respiratory: normal respiratory effort; no respiratory distress Cardiovascular: Rate/Rhythm: regular rate Gastrointestinal (Abdomen): Inspection/Auscultation: + abdominal surgical incision (james CDI , dressing removed may leave open to air ); abdomen not distended Percussion/Palpation: + abdomen tender and abdomen soft; abdomen not rigid Results & Data Vital Signs (Past 12 Hours) Vital Signs Temp Pulse Resp BP Pulse Ox O2 Del Method 08/20/24 07:25 97.7 F 70 16 108/68 95 Room Air 08/20/24 00:53 98.1 F 78 18 135/72 94 Room Air Results CBC w Diff Results: RBC 3.25 M/uL (4.20-5.40) L 08/20/24 WBC 5.98 K/ul (4.8-10.8) 08/20/24 Hgb 8.7 g/dl (12.0-16.0) L 08/20/24 Hct 26.8 % (37.0-47.0) L 08/20/24 MCV 82.5 fL (80.0-100.0) 08/20/24 MCH 26.8 pg (25.0-34.0) 08/20/24 MCHC 32.5 g/dL (32.0-36.0) 08/20/24 RDW Standard Deviation 41.8 fL (36.4-46.3) 08/20/24 RDW Coefficient of Variation 14.1 % (11.5-14.5) 08/20/24 Plt Count 252 K/uL (130-400) 08/20/24 MPV 9.6 fL (9.4-12.4) 08/20/24 Neutrophils (%) (Auto) 70.7 % 08/20/24 Lymphocytes (%) (Auto) 16.4 % 08/20/24 Monocytes # (Auto) 0.53 K/uL (0.11-0.59) 08/20/24 Eosinophils # (Auto) 0.19 K/uL (0.00-0.50) 08/20/24 Immature Granulocyte % (Auto) 0.3 % 08/20/24 Neutrophils # (Auto) 4.23 K/uL (1.40-6.50) 08/20/24 Lymphocytes # (Auto) 0.98 K/uL (1.20-3.40) L 08/20/24 Monocytes # (Auto) 0.53 K/uL (0.11-0.59) 08/20/24 Eosinophils # (Auto) 0.19 K/uL (0.00-0.50) 08/20/24 Basophils # (Auto) 0.03 K/uL (0.00-0.20) 08/20/24 Immature Granulocyte # (Auto) 0.02 K/uL (0.01-0.20) 5 PG Care Time/CCT Total # of Minutes Spent Total Time Spent with Patient: Total time spent is greater than 50% in coordination of care (as documented) at patient's floor/unit and/or counseling patient: Coding Level of Care Code 45472 Post Operative Follow-Up Diagnoses Postoperative ileus K91.89; K56.7
[2024-08-20] MEDS: SODIUM CHLORIDE 0.9% 1,000 ML IV SCH (07:38)
[2024-08-20] MEDS: LORazepam 2 MG/1 ML VIAL IV PRN (08:08)
--- NOTE | 2024-08-20 08:23 | XRay Report ---
KUB HISTORY: NGT placement COMPARISON STUDY: 08/20/2024. FINDINGS: There is a large hiatal hernia. Nasogastric tube tip is likely at the gastroesophageal junc tion. There is persistent small bowel distention. IMPRESSION: Nasogastric tube tip is likely at the gastroesophageal junction. ACT 112: Negative or not required by law. The above report was generated using voice recognition software. It may contain grammatical, syntax o r spelling errors. Electronically signed by: Alonso Erwin M.D. 08/20/2024 8:22 AM
--- NOTE | 2024-08-20 11:58 | Hospitalist Progress Note ---
Date of Service August 20, 2024 Assessment & Plan (1) Cecal volvulus: (2) Incarcerated ventral hernia: (3) Postoperative ileus: (4) HTN (hypertension): (5) Anxiety: (6) Hypothyroid: (7) Acid reflux: Plan This is a 83 y/o F w/ PMHx of HTN, HLD, OA, GERD, Anxiety, Hypothyroidism, and ventral hernia recently noted to be incarcerated who arrived to the ED due to severe abdominal pain of acute onset, and was admitted for management of cecal volvulus. She underwent Ex Lap, lysis of adhesions, ileocecetomy with Dr. Lincoln Burnette on 08/13. She was started on clear liquids on post op Day #2 and after being advanced to low fiber on 08/16 she developed a post op illeus, NG tube was placed and kept NPO. She was again started on clears on 08/18 and advanced to low fiber in the evening on 08/19 and again developed nausea and vomiting, NG tube was replaced and is currently being kept NPO. Cecal volvulus/ Post op ileus s/p ex lap w/ ileocecectomy S/p ex lap w/ ileocecectomy on 08/13 w/ Dr. Awan Gen surg following - completed zosyn. Worsening nausea and vomiting evening of 08/19 after being advanced to low fiber. NG tube replaced. CT showing possible subacute obstruction. Will add back IV pain control prn Incarcerated ventral hernia Monitoring and management per general surgery team HTN Diltazem resumed when able to take PO and tachycardia improved. Diltizem now held with NG in place Anxiety -Paroxetine HS - resume when can take PO -Uses Ativan prn at home - continue inpatient, switched to IV with NG in place Hypothyroidism - Levothyroxine resume when can take PO GERD - continue PPI IV BID NAPOLEON - resolved Dispo: continued inpatient stay, hopeful for NG tube out tomorrow VTE ppx: SCD hubsand updated at bedside 08/20 Admission and Anticipated Discharge Date Admission Date: August 13, 2024 Supervising Physician Co-Signing Physician Notes PA Supervision Note: I did not personally see or examine the patient today, but I verified all lobato points of ARUNA Davison's assessment and plan with the following exceptions/additions: None Subjective patient seen sitting at the side of the bed, frustrated with NG tube in place as it is uncomfortable but again relayed its importants +BM today no abd pain or nausea currrently Review of Systems Review of Systems: All systems reviewed & are unremarkable except as noted in Subjective Physical Exam Physical Exam: General: NAD, VS as above, sitting up in bed HEENT: NG tube in place Resp: normal respiratory effort, lungs clear to auscultation CV: RRR, no murmur, Abd: + bowel sounds, non tender,incision without signs of infection Extremities: Moves all extremities, no edema Neuro: A&O x3, Results & Data Results & Data Vital Signs (Past 12 Hours) Vital Signs Temp Pulse Resp BP BP Pulse Ox O2 Del Method 08/20/24 07:33 97.9 F 91 H 16 153/81 H 93 Room Air 08/20/24 00:53 98.1 F 78 18 135/72 94 Room Air Laboratory Results cbc, chemistry and lactate reviewed Diagnostic Findings KUB and CT A/P reviewed PG Care Time/CCT Total # of Minutes Spent Total Time Spent with Patient: Total time spent is greater than 50% in coordination of care (as documented) at patient's floor/unit and/or counseling patient: Coding Level of Care Code 16142 SUB INP/OBS CARE 3/50MIN Diagnoses 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 Incarcerated ventral hernia K43.6 Postoperative ileus K91.89; K56.7 HTN (hypertension) I10 Anxiety F41.9 Hypothyroid E03.9 Acid reflux K21.9
[2024-08-20] MEDS: CHLORASEPTIC (PHENOL) 1.4% SOLN 180 ML BTL MT PRN (21:19)
[2024-08-20 22:20] LABS: Appearance Urine Clear (Clear); Bacteria Urine Automated None Seen (None Seen); Bilirubin Urine Negative (Negative); Blood Urine 3+ (Negative); Cast Urine Automated 0-2 /lpf (0-2); Color Urine Orange; Epithelial Cell Urine Auto 0-2 /hpf (0-2); Glucose Urine UA Negative (Negative); Ketones Urine Trace (Negative); Leukocyte Esterase Urine Negative (Negative); Nitrite Urine Negative (Negative); Protein Urine 3+ (Negative); RBC Urine Automated >20 /hpf (0-2); Urobilinogen Urine Negative (Negative); pH Urine 6.5 (4.5-7.5)
[2024-08-20 22:44] LABS: Hematocrit (blood only) 25.1 % (37.0-47.0); Hemoglobin 8.1 g/dl (12.0-16.0)
[2024-08-20] MEDS: ACETAMINOPHEN 1,000 MG/100 ML VIAL IV PRN (23:26)
[2024-08-21] MEDS: PIPERACILLIN/TAZOBACTAM 4.5 GM/100 ML BAG IV ONE (00:51)
[2024-08-21] MEDS: PIPERACILLIN/TAZOBACTAM 4.5 GM/100 ML BAG IV SCH (06:14)
[2024-08-21 07:11] LABS: Basophils # (auto) 0.02 K/uL (0.00-0.20); Basophils % (auto) 0.6 %; Eosinophils # (auto) 0.14 K/uL (0.00-0.50); Hematocrit (blood only) 23.7 % (37.0-47.0); Hemoglobin 7.6 g/dl (12.0-16.0); Immature Granulocytes # (auto) 0.01 K/uL (0.01-0.20); Immature Granulocytes % (auto) 0.3 %; Lymphocytes # (auto) 0.77 K/uL (1.20-3.40); Lymphocytes % (auto) 22.2 %; Mean Corpuscular Hemoglobin 26.6 pg (25.0-34.0); Mean Corpuscular Hgb Conc 32.1 g/dL (32.0-36.0); Mean Corpuscular Volume 82.9 fL (80.0-100.0); Monocytes % (auto) 11.5 %; Neutrophils # (auto) 2.13 K/uL (1.40-6.50); Neutrophils % (auto) 61.4 %; Platelet Count 244 K/uL (130-400); RDW Coefficient of Variation 14.4 % (11.5-14.5); RDW Standard Deviation 42.5 fL (36.4-46.3); Red Blood Count 2.86 M/uL (4.20-5.40); White Blood Count 3.47 K/ul (4.8-10.8)
[2024-08-21 07:39] LABS: Calcium 7.8 mg/dl (8.6-10.3); Creatinine Clr Calc Pharmacy 48.2 ml/min; Potassium 3.1 mmol/L (3.5-5.1)
[2024-08-21 07:48] LABS: Polychromasia 1+
[2024-08-21 07:55] LABS: Thyroid Stimulating Hormone 2.24 uIu/ml (0.300-4.500)
[2024-08-21 08:01] LABS: Ferritin 29.6 ng/ml (8-388)
--- NOTE | 2024-08-21 08:04 | Surgery Progress Note ---
Date of Service August 21, 2024 Assessment & Plan (1) Postoperative ileus: Plan: Denies N/V, NGT in place Repeat KUB pending this AM, +BM +flatus abd soft non- TTP IV fluids while NPO , possible clamp trial with NGT pending KUB james CDI no s/s infection Will follow along closely Admission and Anticipated Discharge Date Admission Date: August 13, 2024 Supervising Physician Co-Signing Physician Notes Patient seen and examined, labs and imaging reviewed, agree with above. Status post right hemicolectomy for cecal bascule, developed ileus a few days after surgery. She has had multiple loose bowel movements and is passing flatus. Her abdomen feels less distended. She did have a little bit of right lower quadrant pain with moving today. On exam she is afebrile with stable vitals. Her abdomen is soft, less distended, appropriately tender to palpation, incision without infection. KUB personally viewed and interpreted and agree with the assessment of resolving ileus with less distention of the small bowel. We will attempt to remove the NG tube today and start her on clear liquids. Will slowly advance her to low fiber after that. Review of Systems Constitutional: no fever and no chills Respiratory: no dyspnea Cardiovascular: no chest pain Gastrointestinal: no abdominal pain, no nausea and no vomiting Physical Exam Constitutional: cooperative; no acute distress Respiratory: normal respiratory effort; no respiratory distress Cardiovascular: Rate/Rhythm: regular rate Gastrointestinal (Abdomen): Inspection/Auscultation: + abdominal surgical incision (james CDI); abdomen not distended Percussion/Palpation: abdomen soft; abdomen nontender and abdomen not rigid Results & Data Vital Signs (Past 12 Hours) Vital Signs Temp Pulse Pulse Resp BP Pulse Ox O2 Del Method 08/21/24 07:08 97.9 F 81 16 139/77 96 Room Air 08/20/24 21:20 Room Air 08/20/24 21:04 99.3 F 89 20 151/80 H 93 Room Air PG Care Time/CCT Total # of Minutes Spent Total Time Spent with Patient: Total time spent is greater than 50% in coordination of care (as documented) at patient's floor/unit and/or counseling patient: Coding Level of Care Code 74038 Post Operative Follow-Up Diagnoses Postoperative ileus K91.89; K56.7
[2024-08-21 08:21] LABS: Folate (Folic Acid),Ser orPlas > 22.30 ng/ml (>5.38)
[2024-08-21 08:22] LABS: Vitamin B12 577 pg/ml (180-914)
[2024-08-21] MEDS: POTASSIUM CHLORIDE / WTR 10 MEQ/100 ML PLCT IV SCH (09:39)
--- NOTE | 2024-08-21 09:40 | XRay Report ---
KUB HISTORY: ilieus COMPARISON STUDY: 08/20/2024 FINDINGS: The prior small bowel distention is significantly improved with mild residual small bowel d istention at the left upper quadrant. No significant colonic distention seen. No gross free air. Stab le surgical clips at the right upper quadrant. IMPRESSION: Interval improvement of the small bowel distention. ACT 112: Negative or not required by law. The above report was generated using voice recognition software. It may contain grammatical, syntax o r spelling errors. Electronically signed by: Alonso Erwin M.D. 08/21/2024 9:38 AM
[2024-08-21] MEDS: IRON SUCROSE 300 MG in SODIUM CHLORIDE 0.9% 250 ML IV ONE (11:59)
--- NOTE | 2024-08-21 13:04 | Hospitalist Progress Note ---
Date of Service August 21, 2024 Assessment & Plan (1) Cecal volvulus: (2) Incarcerated ventral hernia: (3) Postoperative ileus: (4) HTN (hypertension): (5) Anxiety: (6) Hypothyroid: (7) Acid reflux: Plan This is a 83 y/o F w/ PMHx of HTN, HLD, OA, GERD, Anxiety, Hypothyroidism, and ventral hernia recently noted to be incarcerated who arrived to the ED due to severe abdominal pain of acute onset, and was admitted for management of cecal volvulus. She underwent Ex Lap, lysis of adhesions, ileocecetomy with Dr. Lincoln Burnette on 08/13. She was started on clear liquids on post op Day #2 and after being advanced to low fiber on 08/16 she developed a post op illeus, NG tube was placed and kept NPO. She was again started on clears on 08/18 and advanced to low fiber in the evening on 08/19 and again developed nausea and vomiting, NG tube was replaced and removed on 08/21 after showing improvement on KUB. Cecal volvulus/ Post op ileus s/p ex lap w/ ileocecectomy S/p ex lap w/ ileocecectomy on 08/13 w/ Dr. Awan Gen surg following - completed zosyn. KUB showing improvement, NG tube has been removed, and clear liquid diet resumed. K 3.1 - replaced IV. Recheck BMP AM Will add back PO pain control prn Incarcerated ventral hernia Monitoring and management per general surgery team Hematuria Occurred overnight 08/20 - UA obtained,not overly concerning for infection. UC pending. Zosyn stopped. hx of right ureteral stricture, recent stent placement/removal. CT A/P from 08/20 showed mild right hydronephrosis - discussed with urology, follow urine culture, no acute intervention or imaging needed. Monitor for recurrance and complete emptying of bladder Bladder scan prn Anemia Hgb 11.4 on admission, has dropped to 7.6 - component of post surgical and dilutional B12/folate/TSH wnl. Fe studies consistent with iron deficiency anemia. Venofer 300mg IV x 1 AM CBC HTN Diltazem resumed Anxiety -Paroxetine HS - resumed -Uses Ativan prn at home - continue inpatient Hypothyroidism - Levothyroxine resumed GERD - continue PPI IV BID NAPOLEON - resolved Dispo: continued inpatient stay, working to advance diet, monitoring for hematuria VTE ppx: SCD updated at bedside 08/20 & 08/21 Admission and Anticipated Discharge Date Admission Date: August 13, 2024 Supervising Physician Co-Signing Physician Notes ARUNA Supervision Note: I did not personally see or examine the patient today, but I verified all lobato points of ARUNA Davison's assessment and plan with the following exceptions/additions: None Subjective Patient seen sitting up in the chair, present at bedside. States she has only had one episode of hematuria - has urinated since without issue. No pain with urination, feels like she is emptying her bladder completey. no nausea or abdominal pain - has not had PO intake at the time of my eval, but clear liquid lunch tray did arrive states she has a hx of iron deficiency anemia, was on iron supplementation and then stopped because she was told she was not anemic anymore no uti symptoms Review of Systems Review of Systems: All systems reviewed & are unremarkable except as noted in Subjective Physical Exam Physical Exam: General: NAD, VS as above, sitting up in the chair Resp: normal respiratory effort, lungs clear to auscultation CV: RRR, no murmur, Abd: + bowel sounds, non tender,incision without signs of infection - top staple is loose but still attached, however not over incision. Back: no CVA tenderness. Extremities: Moves all extremities, no edema Neuro: A&O x3, Results & Data Results & Data Vital Signs (Past 12 Hours) Vital Signs Temp Pulse Resp BP Pulse Ox O2 Del Method 08/21/24 07:08 97.9 F 81 16 139/77 96 Room Air Laboratory Results cbcm chemistry and iron studies reviewed Diagnostic Findings KUB reviewed PG Care Time/CCT Total # of Minutes Spent Total Time Spent with Patient: Total time spent is greater than 50% in coordination of care (as documented) at patient's floor/unit and/or counseling patient: Coding Level of Care Code 59923 SUB INP/OBS CARE 3/50MIN Diagnoses 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 Incarcerated ventral hernia K43.6 Postoperative ileus K91.89; K56.7 HTN (hypertension) I10 Anxiety F41.9 Hypothyroid E03.9 Acid reflux K21.9
[2024-08-21] MEDS ORDERED: ACETAMINOPHEN 500 MG TAB PO PRN (16:08)
[2024-08-22 07:24] LABS: Hematocrit (blood only) 29.3 % (37.0-47.0); Hemoglobin 9.4 g/dl (12.0-16.0); Mean Corpuscular Hemoglobin 26.7 pg (25.0-34.0); Mean Corpuscular Hgb Conc 32.1 g/dL (32.0-36.0); Mean Corpuscular Volume 83.2 fL (80.0-100.0); Mean Platelet Volume 10.2 fL (9.4-12.4); Platelet Count 356 K/uL (130-400); RDW Coefficient of Variation 14.6 % (11.5-14.5); RDW Standard Deviation 43.6 fL (36.4-46.3); Red Blood Count 3.52 M/uL (4.20-5.40); White Blood Count 5.28 K/ul (4.8-10.8)
[2024-08-22 07:39] LABS: Calcium 8.7 mg/dl (8.6-10.3); Creatinine Clr Calc Pharmacy 46.6 ml/min
--- NOTE | 2024-08-22 08:52 | Surgery Progress Note ---
<Statement entered by Frieda Awan, - 08/22/24 16:01> I have seen this patient this am, up in the chair having lunch. I had a long discussion with the patient today regarding the plan. At this time, we will hold her on a full liquid diet and plan to discharge her on that. In general, her ABD x-rays have appeared to have diffuse distention throughout the entire small and large bowel indicating an ileus vs rectal obstruction although at this time she is having solid BMs and continues to pass flatus. Today she says she has not required any further pain medication, has no nausea or other complaints. Will plan to do a rectal exam tomorrow with the patient in bed. Date of Service August 22, 2024 Assessment & Plan (1) Cecal volvulus: Plan: POD#9 exlap and R hemicolectomy wbc 5, hbg stable at 9 (7). vitals stable pt reports feeling well, denies much pain, nausea/vomiting. she is having + bowel function will advance to full liquids this AM and see how she fairs continue pulmonary toilet and OOB ambulating Admission and Anticipated Discharge Date Admission Date: August 13, 2024 Subjective Patient sitting up in chair. reports feeling well and much better after NGT removal. she is tolerating clears. pain controlled. + flatus and BMs reported. is eager to get walking and ambulating more today. Physical Exam Physical Exam: awake/alert, no distress Gastrointestinal (Abdomen): Inspection/Auscultation: + abdominal surgical incision (midline incision c/d/i with james, no signs of infection); abdomen not distended Percussion/Palpation: abdomen soft; abdomen nontender Results & Data Vital Signs (Past 12 Hours) Vital Signs Temp Pulse Pulse Pulse Resp BP Pulse Ox 08/22/24 08:31 88 90 08/22/24 07:13 98.4 F 47 L 18 161/81 H 95 08/21/24 21:06 O2 Del Method 08/22/24 08:31 08/22/24 07:13 Room Air 08/21/24 21:06 Room Air PG Care Time/CCT Total # of Minutes Spent Total Time Spent with Patient: Total time spent is greater than 50% in coordination of care (as documented) at patient's floor/unit and/or counseling patient: Coding Level of Care Code 75000 Post Operative Follow-Up Diagnoses 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
[2024-08-22] MEDS: POTASSIUM CHLORIDE CRTAB 20 MEQ TABCR PO SCH (09:29)
[2024-08-22 09:51] LABS: Magnesium 1.4 mg/dl (1.7-2.4)
[2024-08-22] MEDS: MAGNESIUM SULFATE / D5W 1 GM/100 ML BAG IV SCH (10:41)
[2024-08-22] MEDS: MAGNESIUM OXIDE 400 MG TAB PO SCH (11:04)
--- NOTE | 2024-08-22 13:23 | Hospitalist Progress Note ---
Date of Service August 22, 2024 Assessment & Plan (1) Cecal volvulus: (2) Incarcerated ventral hernia: (3) Postoperative ileus: (4) HTN (hypertension): (5) Anxiety: (6) Hypothyroid: (7) Acid reflux: Plan This is a 83 y/o F w/ PMHx of HTN, HLD, OA, GERD, Anxiety, Hypothyroidism, and ventral hernia recently noted to be incarcerated who arrived to the ED due to severe abdominal pain of acute onset, and was admitted for management of cecal volvulus. She underwent Ex Lap, lysis of adhesions, ileocecetomy with Dr. Lincoln Burnette on 08/13. She was started on clear liquids on post op Day #2 and after being advanced to low fiber on 08/16 she developed a post op illeus, NG tube was placed and kept NPO. She was again started on clears on 08/18 and advanced to low fiber in the evening on 08/19 and again developed nausea and vomiting, NG tube was replaced and removed on 08/21 after showing improvement on KUB. Cecal volvulus/ Post op ileus s/p ex lap w/ ileocecectomy S/p ex lap w/ ileocecectomy on 08/13 w/ Dr. Awan Gen surg following - completed zosyn. KUB showing improvement, NG tube has been removed, and clear liquid diet resumed. K 3.0 - replaced PO. Mag 1.4 - replaced PO and IV. Recheck BMP and Mag in AM Will add back PO pain control prn - so far has not needed Incarcerated ventral hernia Monitoring and management per general surgery team Hematuria Occurred overnight 08/20 - UC no growth. Zosyn stopped. hx of right ureteral stricture, recent stent placement/removal. CT A/P from 08/20 showed mild right hydronephrosis - discussed with urology, follow urine culture, no acute intervention or imaging needed. Monitor for recurrance and complete emptying of bladder Bladder scan prn no further hematuria reported Anemia Hgb 11.4 on admission, has dropped to 7.6 - component of post surgical and dilutional B12/folate/TSH wnl. Fe studies consistent with iron deficiency anemia. Venofer 300mg IV x 1 Hgb improved 9.4 HTN Diltazem resumed Anxiety -Paroxetine HS - resumed -Uses Ativan prn at home - continue inpatient Hypothyroidism - Levothyroxine resumed GERD - continue PPI IV BID NAPOLEON - resolved Dispo: continued inpatient stay, working to advance diet, monitoring for hematuria VTE ppx: SCD updated at bedside 08/20 & 08/21 Admission and Anticipated Discharge Date Admission Date: August 13, 2024 Supervising Physician Co-Signing Physician Notes PA Supervision Note: I did not personally see or examine the patient today, but I verified all lobato points of ARUNA Davison's assessment and plan with the following ex ceptions/additions: None Subjective Patient reports feeling well. stool has turned brown. no further hematuria. ASking about further diet advancement, but will defer to surgery. no abd pain, no nausea Review of Systems Review of Systems: All systems reviewed & are unremarkable except as noted in Subjective Physical Exam Physical Exam: General: NAD, VS as above, sitting up in the chair Resp: normal respiratory effort, lungs clear to auscultation CV: RRR, no murmur, Abd: + bowel sounds, non tender,incision without signs of infection - top staple removed by surgery Back: no CVA tenderness. Extremities: Moves all extremities, no edema Neuro: A&O x3, Results & Data Results & Data Vital Signs (Past 12 Hours) Vital Signs Temp Pulse Pulse Pulse Resp BP Pulse Ox 08/22/24 08:31 88 90 08/22/24 07:13 98.4 F 47 L 18 161/81 H 95 O2 Del Method 08/22/24 08:31 08/22/24 07:13 Room Air Laboratory Results cbc and chemistry reviewed PG Care Time/CCT Total # of Minutes Spent Total Time Spent with Patient: Total time spent is greater than 50% in coordination of care (as documented) at patient's floor/unit and/or counseling patient: Coding Level of Care Code 86906 SUB INP/OBS CARE 3/50MIN Diagnoses 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 Incarcerated ventral hernia K43.6 Postoperative ileus K91.89; K56.7 HTN (hypertension) I10 Anxiety F41.9 Hypothyroid E03.9 Acid reflux K21.9
[2024-08-23 07:10] LABS: BUN Creatinine Ratio 5.8 (10-20); Calcium 8.4 mg/dl (8.6-10.3); Creatinine Clr Calc Pharmacy 49.8 ml/min; Magnesium 1.9 mg/dl (1.7-2.4); Potassium 3.9 mmol/L (3.5-5.1)
[2024-08-23 08:11] VITALS: BP 127/74; PULSE 81; RESP 18; TEMP 98.4; O2SAT 92
--- NOTE | 2024-08-23 09:54 | Surgery Progress Note ---
Date of Service August 23, 2024 Assessment & Plan (1) Cecal volvulus: Plan: POD#10 exlap and R hemicolectomy vitals stable pt reports feeling well, denies pain, nausea/vomiting. she is having + bowel function she is tolerating full liquids, will keep on this for now until surgeon recommends further hopeful for discharge to home in the near future continue pulmonary toilet and OOB ambulating will need f/u in the office in about 1 weeks time for check up and staple removal with dr. flanagan (2) Postoperative ileus: Admission and Anticipated Discharge Date Admission Date: August 13, 2024 Supervising Physician Co-Signing Physician Notes I have seen and examined Elizabeth this am. She continues to feel well on full liquids and would like to go home. She states she has not had any abdominal pain at all for a few days now, continues to pass gas and having BMs which are no longer runny, now soft solid. Her potassium is WNL this am. We will plan to see her in the office next week for follow up at which time her abdominal james will be removed and we will begin slowly advancing her diet at that time. Subjective Patient is feeling well. She is tolerating full liquids, no nausea/vomiting. She is hungry for more, but agrees she will listen to our recommendations. She is passing flatus and BMs through this AM Physical Exam Physical Exam: awake/alert, no distress Respiratory: normal respiratory effort Gastrointestinal (Abdomen): Inspection/Auscultation: + abdominal surgical incision (c/d/i with midline james, no signs of infection) Percussion/Palpation: abdomen soft; abdomen nontender Results & Data Vital Signs (Past 12 Hours) Vital Signs Temp Pulse Pulse Resp BP BP Pulse Ox 08/23/24 08:11 98.4 F 81 18 127/74 92 08/22/24 23:58 98.2 F 77 17 122/69 94 O2 Del Method 08/23/24 08:11 Room Air 08/22/24 23:58 Room Air PG Care Time/CCT Total # of Minutes Spent Total Time Spent with Patient: Total time spent is greater than 50% in coordination of care (as documented) at patient's floor/unit and/or counseling patient: Coding Level of Care Code 76165 Post Operative Follow-Up Diagnoses 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 Postoperative ileus K91.89; K56.7
--- NOTE | 2024-08-23 12:12 | Discharge Summary ---
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 She underwent Ex Lap, lysis of adhesions, ileocecectomy with Dr. Lincoln Burnette on 08/13. Completed course of Zosyn. She was started on clear liquids on post op Day #2 and after being advanced to low fiber on 08/16 she developed a post op illeus, NG tube was placed and kept NPO. She was again started on clears on 08/18 and advanced to low fiber in the evening on 08/19 and again developed nausea and vomiting, NG tube was replaced and removed on 08/21 after showing improvement on KUB. She has tolerated full liquid diet without issues for the last two days. Electrolytes replaced and repleted. Surgery has decided to keep her on full liquid diet at discharge until follow up appointment scheduled 08/28. Incarcerated ventral hernia Monitoring and management per general surgery team Hematuria One singular epidose. Discussed with urology, no acute intervention. UC with no growth. Monitor at home for further hematuria. routine urology f/u Anemia Hgb 11.4 on admission, dropped to 7.6 - component of post surgical and dilutional. iron studies consistent with OSMEL, given venofer x1 and hgb improved to 9.4 PO iron deferred at discharge d/t risk on constipation. Once acute surgical problems resolve recommend PO supplementation. ensure coloscopy up to date. HTN - continue Diltazem Anxiety - continue paroxetine and ativan Hypothyroidism - Levothyroxine resumed GERD - continue PPI [place] - resolved Dispo: discharge to home today, surgery follow up updated at bedside 08/20 & 08/21 Notes For Next Care Provider will need further treatment for OSMEL - ensure colonoscopy up to date currently on full liquid diet Admission HPI Per Admitting Provider Patient is an 83-year-old female with past medical history of hypertension, anxiety, hypothyroidism, osteoarthritis, and incarcerated ventral hernia who arrived to the emergency department due to right flank and groin pain that has been present for a few weeks, as well as intermittent abdominal pain with acute worsening today. She was seen by urology office on 08/12/2024 to have right ureteral stent removed, which was placed due to ureteral stricture on 08/01/2024. No urinary symptoms at this time. Patient has history of small bowel obstruction a few years back, and states that she had been getting similar but more mild pain that comes and goes over the last few months. However, that abdominal pain that she has been feeling for the last few months happened today and was much worse. Also endorses episode of diarrhea earlier today that was nonbloody. Pain appeared suddenly without known precipitating factor. Try to use Tylenol at home without success for pain control. Denies having any fevers, chills, weakness, nausea/vomiting, chest pain, shortness of breath, or any other systemic symptoms. ED Course: given 500 mL NSS at 125 ml/hr, fentanyl 25 mcg, Tylenol 1 gm, Zosyn x1 Labs/Imaging: CBC with normal white blood count of 4.94, hemoglobin of 11.4 (close to baseline), platelets of 306. CMP without significant electrolyte abnormalities, creatinine slightly increased compared to level taken from June/2024 (0.91 --> 1.31), blood sugar 122. LFTs unremarkable. Lipase 47. CT abdomen pelvis without contrast noting likely cecal volvulus. Medical History: [Reviewed] Medications: [Reviewed] Surgical History: [Reviewed] Family history: [Reviewed] Allergies: [Reviewed] Social History: [Reviewed] Code Status: FULL CODE Discharge Exam General: NAD, VS as above, sitting up in the chair Resp: normal respiratory effort, lungs clear to auscultation CV: RRR, no murmur, Abd: + bowel sounds, non tender,incision without signs of infection Extremities: Moves all extremities, no edema Neuro: A&O x3, Discharge Plan Discharge Items Patient Disposition: Home - Self-Care Reason For Visit: ABDOMINAL PAIN Discharge Diagnosis: exploratory laparotomy ileocecectomy Activity: As commented below Lifting: No more than 10 pounds Bathing Comment: you can shower, do NOT soak in baths, pools, or hot tubs for 2 weeks Exercise/Sports: Wait until after follow-up appointment Driving/Machine Use: no driving while on narcotics for pain Non-emergency contact: Surgeon Call non-emergency contact if: you have any medication questions, your symptoms worsen, your temperature is above 101.5, your wound has increased redness, your wound has increased drainage and your wound pain has increased Follow-up/Referrals: Frieda Awan DO [Physician] - 08/28/24 9:30 am (call office for follow up in 7-10 days) Daria Taylor D.O. [Primary Care Provider] - (follow up within one week ) Diet: Full liquid Addtl Attending Provider Instructions: Ms. Willis, You were hospitalized after having severe abdominal pain and found to have a cecal volvulus, you were taking to the OR with Dr. Lincoln Burnette and had an ileocecectomy done. You completed the course of IV antibiotics while here. Unfortunately, you developed a post op ileus twice after advancing your diet to low fiber. For this reason the surgery team has decided to keep you on a full liquid diet until your follow up appointment with them. You will have you james removed at the follow up appointment as well. If you have any recurrent abdominal pain, nausea, vomiting or inability to pass gas. Please call Dr. Lincoln Burnette office or return to the ER. Continue to follow up with general surgery regarding your ventral hernia. You were also found to have iron deficiency anemia. You were given IV iron while you were here and will likely benefit for iron supplementation in the future. This is NOT recommended at discharge however given your recent surgery as iron can cause constipation. Please follow up with your PCP to determine when this should be started. Also if you are up to date on your colonoscopies. Would recommend using tylenol or tramadol for general pain going forward. Avoid NSAIDs and scheduled naproxen. You had an episode of hematuria while you were here, thankfully this has not happened again. If you have further episodes of hematuria, please contact your urologist. Activity: You can do normal everyday activities as your body allows. Take rest breaks if you feel tired. Do not overexert. Stop activity if you have pain, shortness of breath or feel dizzy. Follow-up appointments: Make an appointment with your primary care physician within one week of d ischarge. A copy of this summary will be sent to them. Every time you see your primary care physician, or any other doctor, bring your medication list, and a list of questions. CONTACT YOUR PRIMARY CARE PROVIDER if you experience any of the following: Shortness of breath or difficulty breathing Fevers or chills Feeling tired with normal activity or experiencing dizziness or fainting Difficulty following your treatment plan, or difficulty taking medications CALL 911 OR GO TO THE EMERGENCY DEPARTMENT if you experience any of the f ollowing: Severe abdominal pain or nausea/vomiting Severe chest pain, or chest pain that radiates (moves) to your jaw or arm Sudden, severe shortness of breath or difficulty breathing Thank you for allowing us to participate in your care. Addtl Loss Prevention Research Engineer Provider Instructions: Surgery instructions: You have james that will need to come out at your follow up appointment. Please keep surgical area clean and dry. You may shower and can let soap and water run over surgical site. You may cover with gauze for comfort or leave open to air Remain on a full liquid diet until you follow up with the surgeon. This includes food like yogurt, puddings, ice cream, cream of wheat, oatmeal, mashed potatoes, soups, smoothies, etc. most things you can scoop a spoon through Pending Studies at Discharge: Yes Studies:: surgical pathology Stand-Alone Forms: [facility], Smoking Cessation Medications and DC Order Prescriptions: Continued paroxetine HCl 10 mg tablet 10 mg PO HS diltiazem HCl 240 mg capsule,extended release 24 hr 240 mg PO QAM tramadol 50 mg tablet 50 mg PO UD PRN (Reason: Pain) levothyroxine 25 mcg tablet 25 mcg PO QAM omeprazole 20 mg capsule,delayed release(DR/EC) 20 mg PO QAM lorazepam 1 mg tablet 1 mg PO TID PRN (Reason: Anxiety) multivitamin Capsule 2 cap PO DAILY tamsulosin 0.4 mg capsule 0.8 mg PO HS Discontinued naproxen 500 mg tablet 500 mg PO BID Qty: 30 1RF ibuprofen 600 mg Tablet 600 mg PO BID PRN (Reason: Pain) Discharge Orders: Discharge Order (Routine); Ordered 08/23/24 Ordered By: Cassandra Guzmán/Other Patient Handouts: Full Liquid Diet Dc Admission Data Admit Date/Time: 08/13/24 20:01 Attending Provider: Tamara Paige Admit Provider: Susan Flood Primary Care Provider: Daria Taylor Other Providers: Aurelio Urbina; Frieda Awan; Dianna Velazquez; Susan Flood; Nikko Reyes; Fernando Alvarez; Alonso Kaufman Other Interventions: Discharge Summary Assessment (RN) Last Done: 08/23/24 13:04 Hospital Stay Data Consultations 08/13/24 18:16 ED Decision to Admit Stat 08/13/24 18:29 Consult General Surgery Stat Procedures Performed Operation Date: 08/13/24 19:30 Actual Procedures p Exploratory Laparotomy, lysis of adhesions, ileocecectomy(Not Applicable) - Frieda Awan DO Diagnostic Imagining Performed Abdomen/Pelvis CT 08/13/24 16:04 EXAMINATION: CT of the abdomen and pelvis performed without contrast TECHNIQUE: Helical CT images from the lung bases through the symphysis pubis were obtained without contrast. Coronal and sagittal reformatted images were generated at a workstation for further assessment. Dose reduction techniques were achieved by using automatic exposure control and/or adjustment of mA and/or kV according to patient size and/or use of iterative reconstruction technique. COMPARISON: 07/15/2024 HISTORY: Abdominal pain FINDINGS: Lower chest: No consolidation. No pleural effusion or pneumothorax. Liver: No suspicious liver lesions. Gallbladder: Cholecystectomy changes. Spleen: Normal size. Pancreas: No suspicious pancreatic lesions. The pancreatic duct is not dilated. Adrenal glands: No adrenal nodules. Kidneys: No hydronephrosis or obstructing renal stones. Bladder / Pelvic organs: Unremarkable. Bowel: There is dilation of the cecum, which is deviated into the mid abdomen. The location for the ileocecal valve, additionally appears to be about the lateral aspect of the cecum, rather than medial. The mesentery lateral to the cecum has a slightly swirled appearance, with twisting of the proximal portion of the ascending:. A prominent air/fluid level is noted in the cecum. The appearance is entirely new from the CT on July 15, 2024, when the cecum was appropriately located and nondilated in the right lower quadrant. The previously seen right paramedian ventral wall abdominal hernia containing loops of small bowel appears to have slightly increased in size, possibly due to to increased intra-abdominal pressure and the proximity of the dilated cecum. Sigmoid diverticulosis without diverticulitis. There is a large esophageal hiatal hernia, containing the entire stomach. Lymph nodes: No retroperitoneal, mesenteric, or pelvic lymphadenopathy. Peritoneum / Retroperitoneum: No free fluid or air within the abdomen. Vessels: No infrarenal aortic aneurysm. Heavy aortoiliac calcification. Bones and soft tissues: No suspicious lesion in the bones. IMPRESSION: There is new dilation and medial deviation of the cecum, with an air/fluid level, and swirling of the adjacent mesentery, most consistent with cecal volvulus. Electronically signed by Manuel Garcia 08-13-2024 6:07 PM KUB X-Ray 08/17/24 08:18 KUB HISTORY: abdominal pain, vomiting s/p ileocecectomy COMPARISON STUDY: CT of 08/13/2024 FINDINGS: There is stable diffuse gaseous distention of the colon. There is interval distention of multiple small bowel loops measuring up to 5 cm diameter. No gross free air seen. IMPRESSION: Progressive bowel distention consistent with bowel obstruction. ACT 112: Negative or not required by law. The above report was generated using voice recognition software. It may contain grammatical, syntax or spelling errors. Electronically signed by: Alonso Erwin M.D. 08/17/2024 9:14 AM KUB X-Ray 08/20/24 00:07 EXAM: XR KUB/Abdomen 1 view CLINICAL HISTORY: abd pain distention TECHNIQUE: X-ray images of the abdomen were obtained in supine positions. COMPARISON: Radiograph dated 08/17/2024. FINDINGS: Gas Pattern: Multiple dilated air-filled small bowel loops are seen in the center of the abdomen, measuring up to 6.2 cm in maximum dimension. Air is seen in the rectum. No evidence of pneumoperitoneum. Soft Tissues: Soft tissues of the abdomen appear normal without evidence of masses or calcifications. The liver, spleen, and kidneys are of normal size and position. Metallic surgical clips are seen in the midline and the right upper quadrant. Bones: Degenerative changes in the visualized spine with levoscoliotic deformity of the lumbar spine. IMPRESSION: 1. Multiple dilated air-filled small bowel loops are seen in the center of the abdomen, measuring up to 6.2 cm in maximum dimension, increased as compared to the previous radiograph. Findings are concerning for bowel obstruction. 2. Midline metallic surgical clips indicate recent surgery. 3. Clinical correlation is suggested. Electronically signed by Opal Centeno 08-20-2024 02:54 AM Abdomen/Pelvis CT 08/20/24 01:20 EXAM: CT abd pelvis wo con CLINICAL HISTORY: Abdominal pain, coffee ground emesis TECHNIQUE: Non-contrast CT of the abdomen and pelvis was performed, with the following protocol: axial images, and reconstructed coronal and sagittal images. No intravenous contrast was administered. One of the following dose reduction techniques was utilized for this exam: Automated exposure control, adjustment of the mA and/or kV according to patient size, and use of iterative reconstruction. COMPARISON: CR 08/20/2024 FINDINGS: Abdomen: A large hiatal hernia noted, showing most of the fundus and body at the posterior mediastinum. Bowel: Grossly dilated small bowel loops from the level of the proximal jejunum show multiple air-fluid levels. The large bowel is dilated as well; no obstructing lesion identified. The sigmoid colon shows multiple diverticulae and no signs of diverticulitis. Liver: Normal in size, shape, and density. No focal lesions, cysts, or masses were identified. Gallbladder and Biliary System: The gallbladder is surgically removed. Pancreas: Pancreatic head, body, and tail are visualized and appear normal in size and density. No pancreatic masses or calcifications were noted. Spleen: Normal in size, shape, and density. No splenic lesions or masses were identified. Kidneys and Adrenal Glands: The right kidney shows mild hydronephrosis; no renal or ureteric calculi were detected. The left kidney is normal in size, shape, and position. Cortical thickness is within normal limits. No renal calculi or hydronephrosis. Adrenal glands are unremarkable. Appendix: The appendix not seen. Pelvis: Urinary Bladder: Normal in contour and wall thickness. No intraluminal lesions. Uterus and pelvic organs: not seen. Peritoneal and Retroperitoneal Structures: A small amount of free fluid is noted in the pelvis. No lymphadenopathy was noted. Bones and Soft Tissues: Lumbar levoscoliosis noted. No fractures or abnormal masses were identified. Scanned lower chest shows minimal left pleural effusion, with atelectatic changes. IMPRESSION: 1. Dilated small and large bowel loops with multiple air-fluid levels, no obstructing lesion identified, suspicious of subacute obstruction; clinical correlation and further assessment with contrast study are advised. As noted with previous CR. 2. A large hiatus hernia. 3. Small free fluid noted at the pelvis. 4. Mild right sided hydronephrosis, no renal or ureteric calculus detected. 5. Left pleural effusion. Electronically signed by Opal Centeno 08-20-2024 03:39 AM KUB X-Ray 08/20/24 07:37 KUB HISTORY: NGT placement COMPARISON STUDY: 08/20/2024. FINDINGS: There is a large hiatal hernia. Nasogastric tube tip is likely at the gastroesophageal junction. There is persistent small bowel distention. IMPRESSION: Nasogastric tube tip is likely at the gastroesophageal junction. ACT 112: Negative or not required by law. The above report was generated using voice recognition software. It may contain grammatical, syntax or spelling errors. Electronically signed by: Alonso Erwin M.D. 08/20/2024 8:22 AM KUB X-Ray 08/21/24 06:00 KUB HISTORY: ilieus COMPARISON STUDY: 08/20/2024 FINDINGS: The prior small bowel distention is significantly improved with mild residual small bowel distention at the left upper quadrant. No significant colonic distention seen. No gross free air. Stable surgical clips at the right upper quadrant. IMPRESSION: Interval improvement of the small bowel distention. ACT 112: Negative or not required by law. The above report was generated using voice recognition software. It may contain grammatical, syntax or spelling errors. Electronically signed by: Alonso Erwin M.D. 08/21/2024 9:38 AM Pending Results Patient Have Any Pending Studies at Discharge: Yes Discharge Instructions Given to Patient (Per Discharging Provider) Ms. Willis, You were hospitalized after having severe abdominal pain and found to have a cecal volvulus, you were taking to the OR with Dr. Lincoln Burnette and had an ileocecectomy done. You completed the course of IV antibiotics while here. Unfortunately, you developed a post op ileus twice after advancing your diet to low fiber. For this reason the surgery team has decided to keep you on a full liquid diet until your follow up appointment with them. You will have you james removed at the follow up appointment as well. If you have any recurrent abdominal pain, nausea, vomiting or inability to pass gas. Please call Dr. Lincoln Burnette office or return to the ER. Continue to follow up with general surgery regarding your ventral hernia. You were also found to have iron deficiency anemia. You were given IV iron while you were here and will likely benefit for iron supplementation in the future. This is NOT recommended at discharge however given your recent surgery as iron can cause constipation. Please follow up with your PCP to determine when this should be started. Also if you are up to date on your colonoscopies. Would recommend using tylenol or tramadol for general pain going forward. Avoid NSAIDs and scheduled naproxen. You had an episode of hematuria while you were here, thankfully this has not happened again. If you have further episodes of hematuria, please contact your urologist. Activity: You can do normal everyday activities as your body allows. Take rest breaks if you feel tired. Do not overexert. Stop activity if you have pain, shortness of breath or feel dizzy. Follow-up appointments: Make an appointment with your primary care physician within one week of discharge. A copy of this summary will be sent to them. Every time you see your primary care physician, or any other doctor, bring your medication list, and a list of questions. CONTACT YOUR PRIMARY CARE PROVIDER if you experience any of the following: Shortness of breath or difficulty breathing Fevers or chills Feeling tired with normal activity or experiencing dizziness or fainting Difficulty following your treatment plan, or difficulty taking medications CALL 911 OR GO TO THE EMERGENCY DEPARTMENT if you experience any of the following: Severe abdominal pain or nausea/vomiting Severe chest pain, or chest pain that radiates (moves) to your jaw or arm Sudden, severe shortness of breath or difficulty breathing Thank you for allowing us to participate in your care. Supervising Physician Co-Signing Physician Notes ARUNA Supervision Note: I personally saw and examined the patient. I verified all lobato points and agree with ARUNA Davison with the following exceptions and/or additions: S-patient feeling much improved, no pain, tolerating liquids diet and anxious for discharge O- Vitals reviewed Gen: AAOx3, NAD HEENT: Anicteric sclerae, EOMI CV: RRR no mgr nl S1S2 Pulm: CTAB no wcr Abd: +BS soft mild tenderness to palpation, without guarding or rebound, ND no masses or hernias Ext: No edema Skin: No rashes, warm/dry Neuro: Full strength throughout CBC, BMP, magnesium reviewed A/[id number] female here with cecal volvulus status post bowel resection and postop ileus requiring NG tube placement. Now improving, tolerating liquid diet, stable for discharge to home Rest of plan noted as above Total Time Total Time Spent Total Time Spent (In Minutes): Time spent day of discharge 35 minutes including direct patient care, medication reconciliation, documentation, review of labs and images, and coordination of care. Coding Level of Care Code 82466 INP/OBS DISCH >30 MIN Diagnoses 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 Incarcerated ventral hernia K43.6 Postoperative ileus K91.89; K56.7 HTN (hypertension) I10 Anxiety F41.9 Hypothyroid E03.9 Acid reflux K21.9
== END 2024-08-23 14:00 | disposition home or self-care (01) | DRG 330 ==
LOC: ED 15:56 → OR 20:00 → 3N 20:01 → SUATTDRO 20:01 → OR 20:20
DX: Z90.49 Acquired absence of other specified parts of digestive tract; K21.9 Gastro-esophageal reflux disease without esophagitis; K43.6 Other and unspecified ventral hernia with obstruction, without gangrene; K44.9 Diaphragmatic hernia without obstruction or gangrene; E03.9 Hypothyroidism, unspecified; Z79.899 Other long term (current) drug therapy; E78.5 Hyperlipidemia, unspecified; K91.89 Other postprocedural complications and disorders of digestive system; Z90.710 Acquired absence of both cervix and uterus; K56.7 Ileus, unspecified; Z88.5 Allergy status to narcotic agent; Z79.890 Hormone replacement therapy; F41.9 Anxiety disorder, unspecified; Z88.8 Allergy status to other drugs, medicaments and biological substances; R31.9 Hematuria, unspecified; N17.9 Acute kidney failure, unspecified; I10 Essential (primary) hypertension; K56.2 Volvulus

== ENCOUNTER 2025-03-08 20:59 | Inpatient (IN) ==
--- NOTE | 2025-03-08 21:17 | Emergency Department Note ---
Impression & Plan Small bowel obstruction, Abdominal pain, Infarction of kidney, Acute hyponatremia ED Provider Note NAME: TODD KING AGE: 84 SEX: F : 1940 ARRIVES VIA: Walk-In INFORMANT: Patient ED PROVIDER(S): Geraldo Cummins DO CHIEF COMPLAINT: Abdominal pain HPI: Patient is a 84-year-old female with a past medical history of metastatic cancer to the lung who presents to the ER for periumbilical abdominal pain which has been present for the past 48 hours. Associated with nausea. She threw up once this morning. She notes that she has been having trouble moving her bowels and she did take some laxatives. Denies any headache or change in vision. No chest pain or shortness of breath. No dysuria, urgency or frequency. No other exacerbating or remitting factors. Family provide additional history at bedside note that she has had a colon resection previously. ADDITIONAL HISTORY OBTAINED: Per HPI Chronic Medical/Social Conditions Affecting Care: Per HPI PAST MEDICAL HISTORY:See Below PAST SURGICAL HISTORY:See Below FAMILY HISTORY:See Below SOCIAL HISTORY:See Below HOME MEDICATIONS:See Below ALLERGIES:See Below VITALS:See Below PHYSICAL EXAMINATION: GENERAL: Sitting up in bed, alert, well appearing, well nourished, no distress, non-toxic EYE EXAM: normal conjunctiva. LUNGS: Clear to auscultation. Normal chest wall mechanics HEART: no murmurs, S1 normal and S2 normal ABDOMEN: abdomen soft, non-tender, normo-active bowel sounds, no masses, no rebound or guarding. BACK: Back is symmetrical on inspection and there is no deformity, no midline tenderness, no CVA tenderness. SKIN: no rashes and no bruising UPPER EXTREMITIES: upper extremities are grossly normal. LOWER EXTREMITIES: No pitting edema. NEURO EXAM: Normal sensorium, cranial nerves II-XII grossly intact, normal speech, no gross weakness of arms, no gross weakness of legs. MEDICAL DECISION MAKING: Patient is an 84-year-old female who presents ER for the above-stated complaint. IV was established and blood work was obtained. Labs show no significant leukocytosis. Hemoglobin 8.6 down slightly from her baseline which appears to be around 9-9.5. BMP with a hyponatremia at 123. LFTs bilirubin and lipase was unremarkable. UA was clean. Patient was given IV fluids. CT abdomen pelvis per my initial read did suggest a small bowel obstruction. General surgery was consulted and I discussed case with Akua as well as the renal infarct. Discussed with Dr. Molina from the hospitalist service patient be admitted for further workup. He requested arterial ultrasound of the kidney as well as renal ultrasound which were ordered but not obtained while patient was in the ER. Consults/Care Managements Discussions: Per MDM Triage Nursing notes reviewed. Limited review of prior medical records performed Vital Signs: reviewed and remarkable for HTN Differential diagnosis: Differential diagnoses includes but is not limited to gastritis, peptic ulcer disease, GERD, gallbladder disease, pancreatitis, small bowel obstruction, appendicitis, diverticulitis, hernia, urinary tract infection, torsion, [/ectopic (if female)], perforation, trauma, infectious. ER treatment provided: See below Diagnostics interpreted by me include EKG and cardiac monitoring as listed below: -Cardiac Monitoring: An order was placed for continuous cardiac monitoring. The monitor shows a rate of 90 with sinus rhythm. -ECG: none -Laboratory studies:Interpreted by me as stated above in MDM and shown below. Imaging studies: Xrays: As interpreted by me: Portable AP upright 1 view of the chest shows no focal CTs show: CT abdomen pelvis provide rhythm interpretation suggested a small bowel obstruction CT abdomen pelvis as radiology scribed in the MDM Procedures:none Critical Care: None Past Med/Surg History Problem List (Updated 03/09/25 @ 00:15 by Geraldo Cummins DO) Acute hyponatremia (Acute) Infarction of kidney (Acute) Abdominal pain (Acute) Small bowel obstruction (Acute) Urothelial carcinoma of kidney Urothelial carcinoma Metastatic cancer to lung Pulmonary nodule Lung mass Renal mass (Acute) UTI symptoms Medical History (Updated 03/09/25 @ 00:15 by Geraldo Cummins DO) Urothelial carcinoma Reason for upcoming procedure Metastatic cancer to lung Reason for upcoming procedure Hyperlipidemia History of back problems Poor historian Hydroureteronephrosis Right kidney larger per patient Osteoporosis Arthritis History of diverticulitis Kidney lesion, rampart, right Hiatal hernia CXR 12/24/24: Stable hiatal hernia Acid reflux Hypothyroid HTN (hypertension) Anxiety Surgical History (Updated 01/21/25 @ 15:53 by Katina Fowler RN) Port-A-Cath in place (01/20/25) Insertion Access Port with Fluoroscopy(Not Applicable) - Frieda Burnette DO Hx of ventral hernia repair Hx of exploratory laparotomy Exploratory Laparotomy, lysis of adhesions, ileocecectomy History of surgical procedure on mouth top teeth removed History of tubal ligation History of D&C History of surgery on left wrist pins and screws. History of cholecystectomy History of hysterectomy History of colonoscopy (2017) Pain following procedure > urgent care visit and hospitalized for perforation, no surgical intervention required History of intestinal surgery (04/2023) "bowel kinked" Family History Aunt Diabetes Father Heart disease Other No family history of adverse response to anesthesia Social History Smoking Status: Never smoker Tobacco Type: Declines Second Hand Exposure: No; Do You Dip or Chew Tobacco: No; Hx Alcohol Use: No Hx Substance Use: No Preferred Language: Tajik Communication Ability: Effective Visual Impairment: No Limitations Cosmetic Sales Required: No Beliefs That Will Affect Care: None marital status: Current Living Situation: Spouse How many Children do You have: 1 Feels Safe at Home: Yes during the past year weight has: remained stable Assistive Devices: Glasses Allergies Allergies Allergy/AdvReac Type Severity Reaction Status Date / Time adhesive Allergy Unknown Rash Verified 02/04/25 10:11 iodine Allergy Unknown Unknown Verified 02/04/25 10:11 morphine AdvReac Unknown Confusion Verified 02/04/25 10:11 oxycodone [From OxyContin] AdvReac Unknown "[place] Verified 02/04/25 10:11 awful" Home Meds Home Medications Medication Instructions Recorded Confirmed diltiazem HCl 240 mg capsule,24 240 mg PO QAM 07/15/24 03/08/25 hr,extended release levothyroxine 25 mcg tablet 25 mcg PO QAM 07/15/24 03/08/25 lorazepam 1 mg tablet 1 mg PO TID PRN Anxiety 07/15/24 03/08/25 omeprazole 20 mg capsule,delayed 20 mg PO QAM 07/15/24 03/08/25 release paroxetine HCl 10 mg tablet 10 mg PO HS 07/15/24 03/08/25 ibuprofen 600 mg tablet 600 mg PO BID PRN Pain 10/22/24 03/08/25 multivitamin with iron (Daily 1 tab PO DAILY 01/03/25 03/08/25 Vites/Iron tablet) ondansetron 8 mg disintegrating 8 mg PO Q8H PRN Nausea 01/16/25 03/08/25 tablet tramadol 50 mg tablet 50 mg PO Q6H PRN Pain 01/16/25 03/08/25 Previous Rx's Medication Instructions Recorded dicyclomine 10 mg capsule 10 mg PO TID PRN abdominal pain 10/22/24 #30 caps Results & Data (ED) Vital Signs Vital Signs - 24 hr 03/08/25 21:02 03/08/25 21:08 03/08/25 23:16 Temperature 36.6 C Temperature Source Temporal Artery Scan Pulse Rate 98 H 92 H 88 Pulse Rate from SpO2 Sensor 89 Pulse Rhythm Regular Regular Pulse Strength Normal Respiratory Rate 18 20 20 Respiratory Effort / Characteristics Non-Labored Spontaneous Respiratory Depth Normal Respiratory Pattern Regular Blood Pressure 145/80 H 145/71 H Blood Pressure Mean 101 104 Blood Pressure Position Sitting Pulse Oximetry 95 99 96 Oxygen Delivery Method Room Air Room Air Room Air Sepsis Recent Fever Within 48 Hours No Sepsis New/Unexplained Change in Mental Status N/A Sepsis Action Taken by Nursing No Action Required 03/08/25 23:18 Temperature Temperature Source Pulse Rate 90 Pulse Rate from SpO2 Sensor Pulse Rhythm Pulse Strength Respiratory Rate Respiratory Effort / Characteristics Respiratory Depth Respiratory Pattern Blood Pressure Blood Pressure Mean Blood Pressure Position Pulse Oximetry Oxygen Delivery Method Sepsis Recent Fever Within 48 Hours Sepsis New/Unexplained Change in Mental Status Sepsis Action Taken by Nursing Laboratory Data 03/08/25 21:50 03/08/25 23:19 Lab Results 03/08/25 03/08/25 Range/Units 21:50 23:19 WBC 9.78 (4.8-10.8) K/ul RBC 3.31 L (4.20-5.40) M/uL Hgb 8.6 L (12.0-16.0) g/dl Hct 27.0 L (37.0-47.0) % MCV 81.6 (80.0-100.0) fL MCH 26.0 (25.0-34.0) pg MCHC 31.9 L (32.0-36.0) g/dL RDW Std Deviation 45.1 (36.4-46.3) fL RDW Coeff of Angy 15.3 H (11.5-14.5) % Plt Count 212 (130-400) K/uL MPV 9.8 (9.4-12.4) fL Immature Gran % (Auto) 0.4 % Neut % (Auto) 88.8 % Lymph % (Auto) 9.5 % [place] % (Auto) 1.0 % Eos % (Auto) 0.1 % Baso % (Auto) 0.2 % Neut # (Auto) 8.68 H (1.40-6.50) K/uL Lymph # (Auto) 0.93 L (1.20-3.40) K/uL [place] # (Auto) 0.10 L (0.11-0.59) K/uL Eos # (Auto) 0.01 (0.00-0.50) K/uL Baso # (Auto) 0.02 (0.00-0.20) K/uL Immature Gran # (Auto) 0.04 (0.01-0.20) K/uL RBC Morphology Unremarkable Sodium 123 L 123 L (136-145) mmol/L Potassium 3.8 (3.5-5.1) mmol/L Chloride 93 L (98-107) mmol/L Carbon Dioxide 25 (21-32) mmol/L Anion Gap 5 (3-11) BUN 21 (6-23) mg/dl Creatinine 1.21 H (0.6-1.2) mg/dl Est Cr Clr Drug Dosing 33.6 ml/min eGFR 44.47 BUN/Creatinine Ratio 17.4 (10-20) Glucose 130 H (70-99(Fasting)) mg/dl Osmolality 261 L (280-300) mOsm/kg Calcium 9.1 (8.6-10.3) mg/dl Total Bilirubin 0.7 (0.2-1.0) mg/dl AST 23 (13-39) U/L ALT 25 (7-52) U/L Alkaline Phosphatase 57 (34-104) U/L Total Protein 7.3 (6.0-8.3) gm/dl Albumin 3.4 (3.4-5.0) gm/dl Globulin 3.9 (2.5-4.0) gm/dl Albumin/Globulin Ratio 0.9 (0.9-2) Lipase 41 (11-82) U/L Urine Color Yellow Urine Appearance Cloudy A (Clear) Urine pH 5.5 (4.5-7.5) Ur Specific [place] 1.021 (1.000-1.030) Urine Protein 2+ H (Negative) Urine Glucose (UA) Negative (Negative) Urine Ketones Trace H (Negative) Urine Blood Negative (Negative) Urine Nitrite Negative (Negative) Urine Bilirubin Negative (Negative) Urine Urobilinogen Negative (Negative) Ur Leukocyte Esterase Negative (Negative) Urine WBC (Auto) 0-5 (0-5) /hpf Urine RBC (Auto) 0-2 (0-2) /hpf U Hyaline Cast (Auto) 6-10 H (0-2) /lpf U Epithel Cells (Auto) 0-2 (0-2) /hpf Urine Bacteria (Auto) None Seen (None Seen) Hyaline Casts Present A (None Presnt) /lpf Urine Osmolality 449 L (500-800) mOsm/kg Ur Random Sodium 12 mmol/L Urine Comment Administered Medications Discontinued Medications Sodium Chloride (Nss) 1,000 mls @ 999 mls/hr IV .Q1H1M ONE Stop: 03/08/25 22:13 Last Admin: 03/08/25 22:41 Dose: 999 mls/hr Documented By: [facility] Ioversol (Optiray 320 100ml) 93 ml IV ONCE ONE Stop: 03/08/25 22:12 Last Admin: 03/08/25 22:12 Dose: 93 ml Documented By: [facility] Imaging Data Radiologist's Impression: Abdomen/Pelvis CT 03/08/25 21:08 CR Exam(s): CT ABDOMEN + PELVIS With Contrast IV Amt: 93ml opti 320 EXAM: CT Abdomen and Pelvis With Intravenous Contrast CLINICAL HISTORY: Reason for exam: mid abd pain. TECHNIQUE: Axial computed tomography images of the abdomen and pelvis with intravenous contrast. Automated exposure control was utilized for the study. A dose lowering technique was utilized adhering to the principles of ALARA. CONTRAST: Patient received 93ml opti 320 of IV contrast COMPARISON: No relevant prior studies available. FINDINGS: Lung bases: Unremarkable. No mass. No consolidation. Mediastinum: Fluid-filled large hiatal hernia with the gastric fundus and body elevated above the left hemidiaphragm. ABDOMEN: Liver: Extrahepatic biliary ductal dilatation is expected given patient's postoperative state. Gallbladder and bile ducts: Postop changes prior cholecystectomy. Pancreas: Unremarkable. No mass. No ductal dilation. Spleen: Unremarkable. No splenomegaly. Adrenals: Unremarkable. No mass. Kidneys and ureters: There is a lack of enhancement of the right kidney Multiple left renal parapelvic cysts. Left upper pole hypodensity likely representing small infarct within same No hydronephrosis. Stomach and bowel: High-grade small-bowel obstruction with a transition point in the right lower quadrant. Diverticulosis without evidence of diverticulitis. PELVIS: Appendix: No findings to suggest acute appendicitis. Bladder: Unremarkable. No mass. Reproductive: Unremarkable as visualized. ABDOMEN and PELVIS: Intraperitoneal space: Unremarkable. No free air. No significant fluid collection. Bones/joints: No acute fracture. No dislocation. Soft tissues: Unremarkable. Vasculature: See above. Lymph nodes: Unremarkable. No enlarged lymph nodes. IMPRESSION: Right renal infarct Infarct upper pole left kidney High-grade small-bowel obstruction Communications: 03/08/25 23:06 Call Doctor Regarding Acute arterial occlusion/ critical stenosis, called Dr. Cummins on 03/08 23:06 (-04:00) Electronically signed by: Geraldo Roldan MD 03/08/25 23:08 PM Chest X-Ray 03/08/25 21:46 Exam(s): XR CXR 1 VIEW EXAM: XR Chest, 1 View CLINICAL HISTORY: Reason for exam: port?. TECHNIQUE: Frontal view of the chest. COMPARISON: No relevant prior studies available. FINDINGS: Lungs: Unremarkable. No consolidation. Pleural space: Trace left pleural effusion. No pneumothorax. Heart: Unremarkable. No cardiomegaly. Mediastinum: Unremarkable. Normal mediastinal contour. Bones/joints: Unremarkable. No acute fracture. Tubes, lines and devices: Left-sided subcu chest port with its tip in the mid SVC. Upper abdomen: Elevation of the left hemidiaphragm. Postop changes prior cholecystectomy. IMPRESSION: Trace left pleural effusion. Left-sided chest port with its tip at the mid SVC Electronically signed by: Geraldo Roldan MD 03/08/25 23:27 PM Discharge Plan Visit Data Chief Complaint: Abdominal Pain Stated Complaint: ABD PAIN ED Provider: Geraldo Cummins Discharge Problem: Small bowel obstruction, Abdominal pain, Infarction of kidney, Acute hyponatremia Condition: Serious Forms Stand Alone Forms: My [facility] Prescriptions Prescriptions: No Action multivitamin with iron [Daily Vites/Iron] Tablet 1 tab PO DAILY paroxetine HCl 10 mg tablet 10 mg PO HS diltiazem HCl 240 mg capsule,extended release 24 hr 240 mg PO QAM levothyroxine 25 mcg tablet 25 mcg PO QAM omeprazole 20 mg capsule,delayed release(DR/EC) 20 mg PO QAM lorazepam 1 mg tablet 1 mg PO TID PRN (Reason: Anxiety) tramadol 50 mg Tablet 50 mg PO Q6H PRN (Reason: Pain) ondansetron 8 mg Tablet,Disintegrating 8 mg PO Q8H PRN (Reason: Nausea) ibuprofen 600 mg Tablet 600 mg PO BID PRN (Reason: Pain) dicyclomine 10 mg capsule 10 mg PO TID PRN (Reason: abdominal pain) Qty: 30 0RF Referrals Referrals: Daria Taylor D.O. [Primary Care Provider] - Discharge Problem: Abdominal pain Qualifiers: Abdominal location: unspecified location Qualified Code(s): R10.9 - Unspecified abdominal pain
[2025-03-08] MEDS: OPTIRAY 320 100ml IV ONE (22:12)
[2025-03-08 22:17] LABS: Hematocrit (blood only) 27.0 % (37.0-47.0); Hemoglobin 8.6 g/dl (12.0-16.0); Mean Corpuscular Hemoglobin 26.0 pg (25.0-34.0); Mean Corpuscular Volume 81.6 fL (80.0-100.0); Platelet Count 212 K/uL (130-400); RDW Standard Deviation 45.1 fL (36.4-46.3); Red Blood Count 3.31 M/uL (4.20-5.40); White Blood Count 9.78 K/ul (4.8-10.8)
[2025-03-08 22:27] LABS: Alanine Aminotransferase 25.0 U/L (7-52); Albumin Globulin Ratio 0.9 (0.9-2); Alkaline Phosphatase 57.0 U/L (34-104); Anion Gap 5.0 (3-11); Bilirubin,Total 0.7 mg/dl (0.2-1.0); Blood Urea Nitrogen 21.0 mg/dl (6-23); Calcium 9.1 mg/dl (8.6-10.3); Carbon Dioxide 25.0 mmol/L (21-32); Chloride 93.0 mmol/L (98-107); Creatinine Clr Calc Pharmacy 33.6 ml/min; Globulin 3.9 gm/dl (2.5-4.0); Glucose 130.0 mg/dl (70-99(Fasting)); Lipase 41.0 U/L (11-82); Potassium 3.8 mmol/L (3.5-5.1); Sodium 123.0 mmol/L (136-145); Total Protein 7.3 gm/dl (6.0-8.3)
[2025-03-08 22:38] LABS: Appearance Urine Cloudy (Clear); Bacteria Urine Automated None Seen (None Seen); Epithelial Cell Urine Auto 0-2 /hpf (0-2); Glucose Urine UA Negative (Negative); RBC Urine Automated 0-2 /hpf (0-2); WBC Urine Automated 0-5 /hpf (0-5)
[2025-03-08] MEDS: SODIUM CHLORIDE 0.9% 1,000 ML IV ONE (22:41)
[2025-03-08 22:46] LABS: Immature Granulocytes # (auto) 0.04 K/uL (0.01-0.20); Immature Granulocytes % (auto) 0.4 %; RBC Morphology Unremarkable
--- NOTE | 2025-03-08 23:09 | CT Scan Report ---
Exam(s): CT ABDOMEN + PELVIS With Contrast IV Amt: 93ml opti 320 EXAM: CT Abdomen and Pelvis With Intravenous Contrast CLINICAL HISTORY: Reason for exam: mid abd pain. TECHNIQUE: Axial computed tomography images of the abdomen and pelvis with intravenous contrast. Automated exposure control was utilized for the study. A dose lowering technique was utilized adhering to the principles of ALARA. CONTRAST: Patient received 93ml opti 320 of IV contrast COMPARISON: No relevant prior studies available. FINDINGS: Lung bases: Unremarkable. No mass. No consolidation. Mediastinum: Fluid-filled large hiatal hernia with the gastric fundus and body elevated above the left hemidiaphragm. ABDOMEN: Liver: Extrahepatic biliary ductal dilatation is expected given patient's postoperative state. Gallbladder and bile ducts: Postop changes prior cholecystectomy. Pancreas: Unremarkable. No mass. No ductal dilation. Spleen: Unremarkable. No splenomegaly. Adrenals: Unremarkable. No mass. Kidneys and ureters: There is a lack of enhancement of the right kidney Multiple left renal parapelvic cysts. Left upper pole hypodensity likely representing small infarct within same No hydronephrosis. Stomach and bowel: High-grade small-bowel obstruction with a transition point in the right lower quadrant. Diverticulosis without evidence of diverticulitis. PELVIS: Appendix: No findings to suggest acute appendicitis. Bladder: Unremarkable. No mass. Reproductive: Unremarkable as visualized. ABDOMEN and PELVIS: Intraperitoneal space: Unremarkable. No free air. No significant fluid collection. Bones/joints: No acute fracture. No dislocation. Soft tissues: Unremarkable. Vasculature: See above. Lymph nodes: Unremarkable. No enlarged lymph nodes. IMPRESSION: Right renal infarct Infarct upper pole left kidney High-grade small-bowel obstruction Communications: 03/08/25 23:06 Call Doctor Regarding Acute arterial occlusion/ critical stenosis, called Dr. Cummins on 03/08 23:06 (-04:00) Electronically signed by: Geraldo Roldan MD 03/08/25 23:08 PM
--- NOTE | 2025-03-08 23:28 | XRay Report ---
Exam(s): XR CXR 1 VIEW EXAM: XR Chest, 1 View CLINICAL HISTORY: Reason for exam: port?. TECHNIQUE: Frontal view of the chest. COMPARISON: No relevant prior studies available. FINDINGS: Lungs: Unremarkable. No consolidation. Pleural space: Trace left pleural effusion. No pneumothorax. Heart: Unremarkable. No cardiomegaly. Mediastinum: Unremarkable. Normal mediastinal contour. Bones/joints: Unremarkable. No acute fracture. Tubes, lines and devices: Left-sided subcu chest port with its tip in the mid SVC. Upper abdomen: Elevation of the left hemidiaphragm. Postop changes prior cholecystectomy. IMPRESSION: Trace left pleural effusion. Left-sided chest port with its tip at the mid SVC Electronically signed by: Geraldo Roldan MD 03/08/25 23:27 PM
--- NOTE | 2025-03-08 23:54 | History & Physical Report ---
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 #Abdominal Pain/SBO NPO Currently passing flatus History of R hemicolectomy Serial abdominal exams Defer NG tube given lack of current N/V Surgical consult placed - appreciate recommendations Zofran PRN nausea #Hyponatremia No current neurologic symptoms Based on serum/urine osmolality, urine sodium appears hypovolemic, hypotonic hyponatremia Continue isotonic fluids NSS @ 80cc/hr Aim for correction 12mmol/24hrs or less #Renal Infarction R renal, L upper pole renal infarction on CT scan This correlates to the location of her known carcinomatous masses Renal US with duplex pending Follow renal function/creatinine Continue hydration as above Urology consulted - appreciate recommendations #Urothelial carcinoma of kidney With mets to lung Currently receiving chemotherapy Has Mediport in place Pt/family concerned about how hospitalization/recent antibiotics will effect ongoing therapy Oncology consulted - appreciate recommendations #HTN Continue diltiazem #Hypothyroidism Continue synthroid #Anxiety/Mental Health Continue Paxil, Ativan #GERD Continue PPI FENGI: NPO, NSS @80cc/hr Code status: full code DVT prophylaxis: heparin Disposition: med/tele History of Present Illness Primary Care Provider: Daria Taylor 84 yo female PMHx 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 Periumbilical adominal pain started [id number]. One episode of emesis on 03/08. Has had difficulty with bowel movements. Did try taking laxatives at home. Had one small bowel movement. Still with +flatus. She was recently started on cefdinir and erythromycin eye drops for stye on R eye and this caused her to miss her chemo treatment. At the time of my encounter she was resting comfortably in bed, denies CP, SOB, N/V. ED course: Labs reveal hyponatremia, mild creatinine elevation (baseline appears to be about 1-1.1) CT reveals high grade SBO, R renal infarct, L upper pole renal infarct Rec'd 1L NSS Allergies Allergy/AdvReac Type Severity Reaction Status Date / Time adhesive Allergy Unknown Rash Verified 02/04/25 10:11 iodine Allergy Unknown Unknown Verified 02/04/25 10:11 morphine AdvReac Unknown Confusion Verified 02/04/25 10:11 oxycodone [From OxyContin] AdvReac Unknown "[place] Verified 02/04/25 10:11 awful" Home Medications Medication Instructions Recorded Confirmed Type diltiazem HCl 240 mg capsule,24 240 mg PO QAM 07/15/24 03/08/25 History hr,extended release levothyroxine 25 mcg tablet 25 mcg PO QAM 07/15/24 03/08/25 History lorazepam 1 mg tablet 1 mg PO TID PRN Anxiety 07/15/24 03/08/25 History omeprazole 20 mg capsule,delayed 20 mg PO QAM 07/15/24 03/08/25 History release paroxetine HCl 10 mg tablet 10 mg PO HS 07/15/24 03/08/25 History dicyclomine 10 mg capsule 10 mg PO TID PRN abdominal pain 10/22/24 03/08/25 Rx #30 caps ibuprofen 600 mg tablet 600 mg PO BID PRN Pain 10/22/24 03/08/25 History multivitamin with iron (Daily 1 tab PO DAILY 01/03/25 03/08/25 History Vites/Iron tablet) ondansetron 8 mg disintegrating 8 mg PO Q8H PRN Nausea 01/16/25 03/08/25 History tablet tramadol 50 mg tablet 50 mg PO Q6H PRN Pain 01/16/25 03/08/25 History Past Med/Surg History Problem List (Updated 03/09/25 @ 00:15 by Geraldo Cummins DO) Acute hyponatremia (Acute) Infarction of kidney (Acute) Abdominal pain (Acute) Small bowel obstruction (Acute) Urothelial carcinoma of kidney Urothelial carcinoma Metastatic cancer to lung Pulmonary nodule Lung mass Renal mass (Acute) UTI symptoms Medical History (Updated 03/09/25 @ 00:15 by Geraldo Cummins DO) Urothelial carcinoma Reason for upcoming procedure Metastatic cancer to lung Reason for upcoming procedure Hyperlipidemia History of back problems Poor historian Hydroureteronephrosis Right kidney larger per patient Osteoporosis Arthritis History of diverticulitis Kidney lesion, [place], right Hiatal hernia CXR 12/24/24: Stable hiatal hernia Acid reflux Hypothyroid HTN (hypertension) Anxiety Surgical History (Updated 01/21/25 @ 15:53 by Katina Fowler RN) Port-A-Cath in place (01/20/25) Insertion Access Port with Fluoroscopy(Not Applicable) - Frieda Burnette DO Hx of ventral hernia repair Hx of exploratory laparotomy Exploratory Laparotomy, lysis of adhesions, ileocecectomy History of surgical procedure on mouth top teeth removed History of tubal ligation History of D&C History of surgery on left wrist pins and screws. History of cholecystectomy History of hysterectomy History of colonoscopy (2017) Pain following procedure > urgent care visit and hospitalized for perforation, no surgical intervention required History of intestinal surgery (04/2023) "bowel kinked" Family History Aunt Diabetes Father Heart disease Other No family history of adverse response to anesthesia Social History Smoking Status: Never smoker Tobacco Type: Declines Second Hand Exposure: No; Do You Dip or Chew Tobacco: No; Hx Alcohol Use: No Hx Substance Use: No Preferred Language: Panamanian Communication Ability: Effective Visual Impairment: No Limitations Visitor Services Coordinator Required: No Beliefs That Will Affect Care: None marital status: Current Living Situation: Spouse How many Children do You have: 1 Feels Safe at Home: Yes Safety Concerns: Feels Safe At This Time during the past year weight has: remained stable Assistive Devices: Denture - Upper and Glasses Review of Systems Review of Systems: reviewed, per HPI Physical Exam Physical Exam: Constitutional: age appropriate, no acute distress HEENT: NCAT, no conjunctival injection CV: regular rhythm, no murmur appreciated, extremities well-perfused, no LE edema Resp: CTABL, no wheezes/rales/rhonchi appreciated, no increased work of breathing GI: soft, nondistended, mild tenderness to palpation in RUQ, no rebou nd/guarding, BS hyperactive MSK: no gross deformities appreciated Skin: warm, dry, no rash appreciated Neuro: alert, oriented, no focal neurologic deficit appreciated Results & Data Results & Data Vital Signs (Past 12 Hours) Vital Signs Temp Pulse Resp BP Pulse Ox O2 Del Method 03/08/25 23:18 90 03/08/25 23:16 88 20 145/71 H 96 Room Air 03/08/25 21:08 92 H 20 99 Room Air 03/08/25 21:02 36.6 C 98 H 18 145/80 H 95 Room Air Code Status & VTE Plan VTE Prophylaxis Plan VTE Prophylaxis will be ordered: Yes Supervising Physician Co-Signing Physician Notes Attending addendum: I have physically seen this patient, have supervised the medical residents activities, and agree with the H&P unless as otherwise noted. Assessment and Plan: The patient is an 84-year-old female with past medical history including urothelial carcinoma of the kidney with mets to lung, currently on chemotherapy with last treatment 03/05/2025, history of partial right hemicolectomy, hypothyroidism, anxiety, hypothyroidism, hypertension, and anxiety. She presents to the emergency department with abdominal pain. Small bowel obstruction- N.p.o. History of right hemicolectomy Zofran 4 mg IV every 6 hours as needed Acetaminophen 1 g IV every 8 hours needed for mild pain or fever Protonix 40 mg IV daily Consult general surgery Renal infarction- Right renal infarct. Infarct upper pole left kidney As noted on CT scan of abdomen and pelvis Order renal ultrasound and renal artery duplex to further assess IV fluids as noted Follow serial laboratories Consult urology Hyponatremia- Sodium 123 on admission Sodium tends to run 127-139 NSS at 80 mL/h N.p.o. status does require IV fluids to be administered Laboratories every morning Hypertension- Continue diltiazem as long as patient can take p.o. medications Anxiety- Continue Paxil and Ativan as long as patient can take p.o. Hypothyroidism- Continue Synthroid as long as patient can take p.o. Resident Activity Tracking Resident Involvement: Resident Care Provided Care Provided: Adult Hospital Medicine (4) Abdominal pain Abdominal location: unspecified location Qualified Code(s): R10.9 - Unspecified abdominal pain (6) Metastatic cancer to lung Laterality: right Qualified Code(s): C78.01 - Secondary malignant neoplasm of right lung
--- NOTE | 2025-03-09 00:11 | Surgery Consultation ---
Date of Consultation March 09, 2025 Assessment & Plan (1) Small bowel obstruction: Patient is an 84-year-old female with a past medical history significant for urothelial carcinoma of kidney with mets to the lung (currently on chemo with last treatment on 03/05/25)who presented to the emergency department for complaints of periumbilical abdominal pain for the last two days. The patient has a surgical history of a previous exploratory laparotomy with lysis of adhesions and ileocecectomy for cecal volvulus (done this past July) by Dr. Awan. She also has a surgical history of a cholecystectomy, a hysterectomy, and an exploratory surgery roughly two years ago at [place] for a "twisted bowel". Patient's CT imaging was concerning for a right and left renal infarct and a renal US is pending at this time. CT imaging also concerning for high-grade SBO and general surgery was consulted and recommend the following: -The patient has no signs of acute abdomen that would warrant surgical intervention. Will plan to treat conservatively for now -Patient did have a bowel movement while in the emergency department and during my evaluation she no longer feels nauseous and has not had any episodes of vomiting. She would like to hold off on NGT placement, which seems reasonable at this time. However, I did discuss with her that if she becomes symptomatic an NGT would be placed for bowel decompression and she is agreeable. -Keep NPO, provide IV fluid hydration, and electrolyte replacement -Continue to monitor bowel function -KUB in AM -Medical management per primary team, surgery will follow closely As above. No nausea or vomiting. Still having mild abdominal discomfort. She did have bowel movements overnight. No urgent indication for operative intervention. Keep n.p.o./ice chips for today and repeat KUB tomorrow History of Present Illness Reason for Consultation: SBO History of Present Illness Patient is an 84-year-old female with a past medical history significant for urothelial carcinoma of kidney with mets to the lung (currently on chemo with last treatment on 03/05/25)who presented to the emergency department for complaints of periumbilical abdominal pain. Patient states the pain has been there for approximately the last 2 days with associated nausea and she did have one episode of emesis yesterday morning. She also notes that she has been h aving some issues moving her bowels, which she believes is secondary to her chemotherapy, and after taking some laxatives she was able to have a bowel movement in the afternoon. The patient states that due to the ongoing pain she came to the emergency department for further evaluation. Patient was worked up in the emergency department and CT imaging was concerning for a right renal infarct, and infarct to the upper pole of the left kidney, along with a high- grade small bowel obstruction. To note, this past July the patient underwent exploratory laparotomy with lysis of adhesions and ileocecectomy for cecal volvulus performed by Dr. Awan. She also has a surgical history of a cholecystectomy and hysterectomy along with an exploratory surgery roughly two years ago at [place] for what she describes as a "twisted bowel". The patient was seen and evaluated early this morning in the emergency department. She is accompanied by both her and son who are at bedside. Patient currently is resting comfortably in bed, vital signs stable, and she is nontoxic-appearing. Patient did have a bowel movement in the emergency department and states that her abdominal pain has somewhat improved since. She denies any current nausea or any additional episodes of emesis. Allergies Allergy/AdvReac Type Severity Reaction Status Date / Time adhesive Allergy Unknown Rash Verified 02/04/25 10:11 iodine Allergy Unknown Unknown Verified 02/04/25 10:11 morphine AdvReac Unknown Confusion Verified 02/04/25 10:11 oxycodone [From OxyContin] AdvReac Unknown "[place] Verified 02/04/25 10:11 awful" Home Medications Medication Instructions Recorded Confirmed Type diltiazem HCl 240 mg capsule,24 240 mg PO QAM 07/15/24 03/08/25 History hr,extended release levothyroxine 25 mcg tablet 25 mcg PO QAM 07/15/24 03/08/25 History lorazepam 1 mg tablet 1 mg PO TID PRN Anxiety 07/15/24 03/08/25 History omeprazole 20 mg capsule,delayed 20 mg PO QAM 07/15/24 03/08/25 History release paroxetine HCl 10 mg tablet 10 mg PO HS 07/15/24 03/08/25 History dicyclomine 10 mg capsule 10 mg PO TID PRN abdominal pain 10/22/24 03/08/25 Rx #30 caps ibuprofen 600 mg tablet 600 mg PO BID PRN Pain 10/22/24 03/08/25 History multivitamin with iron (Daily 1 tab PO DAILY 01/03/25 03/08/25 History Vites/Iron tablet) ondansetron 8 mg disintegrating 8 mg PO Q8H PRN Nausea 01/16/25 03/08/25 History tablet tramadol 50 mg tablet 50 mg PO Q6H PRN Pain 01/16/25 03/08/25 History Patient History Medical History (Updated 03/09/25 @ 00:15 by Geraldo Cummins DO) Urothelial carcinoma Reason for upcoming procedure Metastatic cancer to lung Reason for upcoming procedure Hyperlipidemia History of back problems Poor historian Hydroureteronephrosis Right kidney larger per patient Osteoporosis Arthritis History of diverticulitis Kidney lesion, [place], right Hiatal hernia CXR 12/24/24: Stable hiatal hernia Acid reflux Hypothyroid HTN (hypertension) Anxiety Surgical History (Updated 01/21/25 @ 15:53 by Katina Fowler RN) Port-A-Cath in place (01/20/25) Insertion Access Port with Fluoroscopy(Not Applicable) - Frieda Burnette DO Hx of ventral hernia repair Hx of exploratory laparotomy Exploratory Laparotomy, lysis of adhesions, ileocecectomy History of surgical procedure on mouth top teeth removed History of tubal ligation History of D&C History of surgery on left wrist pins and screws. History of cholecystectomy History of hysterectomy History of colonoscopy (2017) Pain following procedure > urgent care visit and hospitalized for perforation, no surgical intervention required History of intestinal surgery (04/2023) "bowel kinked" Family History Aunt Diabetes Father Heart disease Other No family history of adverse response to anesthesia Social History Smoking Status: Never smoker Tobacco Type: Declines Second Hand Exposure: No; Do You Dip or Chew Tobacco: No; Hx Alcohol Use: No Hx Substance Use: No Preferred Language: Chinese Communication Ability: Effective Visual Impairment: No Limitations Firewood Cutter Required: No Beliefs That Will Affect Care: None marital status: Current Living Situation: Spouse How many Children do You have: 1 Feels Safe at Home: Yes Safety Concerns: Feels Safe At This Time during the past year weight has: remained stable Assistive Devices: Denture - Upper and Glasses Review of Systems Constitutional: no fever and no chills Respiratory: no problem reported Cardiovascular: no chest pain, no palpitations and no syncope Gastrointestinal: + abdominal pain, + nausea and + vomitin g Physical Exam Constitutional: WD/WN, vitals as above Respiratory: normal respiratory effort, lungs clear to auscultation Cardiovascular: Rate/Rhythm: regular rate Gastrointestinal (Abdomen): Abdomen soft, nondistended, mild TTP over umbilical region without rebound or guarding. No signs of peritonitis Previous midline scar appreciated Skin: no rashes, warm and dry Results & Data Vital Signs (Past 12 Hours) Vital Signs Temp Pulse Resp BP Pulse Ox O2 Del Method 03/08/25 23:18 90 03/08/25 23:16 88 20 145/71 H 96 Room Air 03/08/25 21:08 92 H 20 99 Room Air 03/08/25 21:02 36.6 C 98 H 18 145/80 H 95 Room Air Diagnostic Findings Exam(s): CT ABDOMEN + PELVIS With Contrast IV Amt: 93ml opti 320 EXAM: CT Abdomen and Pelvis With Intravenous Contrast CLINICAL HISTORY: Reason for exam: mid abd pain. TECHNIQUE: Axial computed tomography images of the abdomen and pelvis with intravenous contrast. Automated exposure control was utilized for the study. A dose lowering technique was utilized adhering to the principles of ALARA. CONTRAST: Patient received 93ml opti 320 of IV contrast COMPARISON: No relevant prior studies available. FINDINGS: Lung bases: Unremarkable. No mass. No consolidation. Mediastinum: Fluid-filled large hiatal hernia with the gastric fundus and body elevated above the left hemidiaphragm. ABDOMEN: Liver: Extrahepatic biliary ductal dilatation is expected given patient's postoperative state. Gallbladder and bile ducts: Postop changes prior cholecystectomy. Pancreas: Unremarkable. No mass. No ductal dilation. Spleen: Unremarkable. No splenomegaly. Adrenals: Unremarkable. No mass. Kidneys and ureters: There is a lack of enhancement of the right kidney Multiple left renal parapelvic cysts. Left upper pole hypodensity likely representing small infarct within same No hydronephrosis. Stomach and bowel: High-grade small-bowel obstruction with a transition point in the right lower quadrant. Diverticulosis without evidence of diverticulitis. PELVIS: Appendix: No findings to suggest acute appendicitis. Bladder: Unremarkable. No mass. Reproductive: Unremarkable as visualized. ABDOMEN and PELVIS: Intraperitoneal space: Unremarkable. No free air. No significant fluid collection. Bones/joints: No acute fracture. No dislocation. Soft tissues: Unremarkable. Vasculature: See above. Lymph nodes: Unremarkable. No enlarged lymph nodes. IMPRESSION: Right renal infarct Infarct upper pole left kidney High-grade small-bowel obstruction PG Care Time/CCT Total # of Minutes Spent Total Time Spent with Patient: Total time spent is greater than 50% in coordination of care (as documented) at patient's floor/unit and/or counseling patient: [place] [address] INT INP/OBS CARE 1/40MIN Patient Type New Medical Decision Making Straight Forward Diagnoses Small bowel obstruction K56.609
[2025-03-09] MEDS ORDERED: POLYETHYLENE (MIRALAX) 17 GM PACK PO PRN (01:45)
[2025-03-09] MEDS ORDERED: MELATONIN 3 MG TAB PO PRN (01:45)
[2025-03-09] MEDS ORDERED: ACETAMINOPHEN 325 MG TAB PO PRN (01:45)
[2025-03-09] MEDS ORDERED: DICYCLOMINE HCL 10 MG CAP PO PRN (01:45)
[2025-03-09] MEDS ORDERED: MAGNESIUM HYDROXIDE SUSP 30 ML UDC PO PRN (01:45)
[2025-03-09] MEDS ORDERED: IBUPROFEN 600 MG TAB PO PRN (01:45)
[2025-03-09] MEDS: SODIUM CHLORIDE 0.9% 1,000 ML IV SCH (01:55)
[2025-03-09] MEDS ORDERED: ONDANSETRON INJ 2 MG/ML 2 ML VIAL IV PRN (02:04)
--- NOTE | 2025-03-09 02:17 | Billing Data ---
Date of Service March 09, 2025 Coding Level of Care Code 78153 INT INP/OBS CARE
--- NOTE | 2025-03-09 02:30 | Ultrasound Report ---
EXAM: US duplex renal art/vein BI CLINICAL HISTORY: Renal infarct. TECHNIQUE: Bilateral renal arterial duplex was performed. COMPARISON: CT abdomen and pelvis dated on 07/15/2024. US Renal dated on 03/08/2025. FINDINGS: Kidneys: Right kidney measures 8.65 cm, relatively small in size. Known right lower pole infarct; no Doppler waveforms obtained in this region. Left kidney measures 11.58 cm, normal in size. No evidence of stones or hydronephrosis bilaterally. Few bilateral small renal cysts. Aorta: Proximal aorta: 2.08 cm (AP, Trans) Mid aorta: 1.35 x 1.33 cm, PSV 102.3 cm/s at 60°. Distal aorta: 1.26 x 1.19 cm. Diameter is within normal limits. No atherosclerotic changes throughout the visualized abdominal aorta. Renal Arteries: Parameter Right Renal Artery (RRA) Left Renal Artery (LRA) Proximal PSV/EDV (cm/sec) PSV 72.7 / EDV 18.9, RI 0.74, AC 18° PSV 193.7 / EDV 42.2, RI 0.78, AC 49° Mid PSV/EDV (cm/sec) PSV 81.9 / EDV 17.1, RI 0.79, AC 40° PSV 167.8 / EDV 28.9, RI 0.83, AC 32° Distal PSV/EDV (cm/sec) PSV 88.2 / EDV 19.2, RI 0.78, AC 40° PSV 111.1 / EDV 40.8, RI 0.63, AC 60° Resistive Index (RI) 0.74?0.79 across renal artery 0.63?0.83 across renal artery Renal Artery/Aorta Ratio (RAR) 0.9 1.9 Arcuate Arteries: Right Kidney Proximal: PSV 18.5 / EDV 3.9 cm/s, RI 0.79 Mid: PSV 14.3 / EDV 3.4 cm/s, RI 0.76 Distal: not visualized due to bowel gas Left Kidney Proximal: PSV 31.2 / EDV 9.3 cm/s, RI 0.70 Mid: PSV 19.2 / EDV 6.3 cm/s, RI 0.67 Distal: PSV 21.0 / EDV 6.9 cm/s, RI 0.67 Reference data: 60% stenosis, RAR 3.1:1, renal artery PSV 180 cm/s. The renal artery/aorta ratio is within normal limits bilaterally. There is no detectable renal artery stenosis bilaterally. IMPRESSION: 1. Relatively small right kidney (8.65 cm) with known right lower pole infarct; no Doppler flow detected in right lower pole. 2. Left kidney normal in size (11.58 cm) with preserved parenchymal perfusion. 3. Renal arteries patent bilaterally, no hemodynamically significant stenosis (RAR 3.1). 4. Aorta normal in caliber and flow. 5. Findings correlate with prior studies. Electronically signed by Isaiah Huitron 03-09-2025 02:30 AM
[2025-03-09] MEDS: LORazepam 1 MG TAB PO PRN (02:43)
--- NOTE | 2025-03-09 02:44 | Ultrasound Report ---
EXAM: US renal/blad retro comp CLINICAL HISTORY: Renal infarct TECHNIQUE: A renal ultrasound was performed using grayscale imaging. COMPARISON: CT abdomen and pelvis dated on 07/15/2024. FINDINGS: Right Kidney: The right kidney measures 9.1 cm, smaller compared to the left. It is echogenic, with loss of corticomedullary differentiation in the lower pole. Evaluation of the lower pole is limited due to overlying bowel gas. No hydronephrosis or calculi identified. Right lower pole infarct was seen on prior CT. Left Kidney: The left kidney measures 11.4 cm. A 22 × 19 × 16 mm mid-pole cyst and an 8 × 11 × 8 mm lower pole cyst are seen. There is mild dilatation of the left pelvicalyceal system, unchanged. No calculi or masses. Parenchymal echogenicity, otherwise within normal limits. Evaluation limited due to excessive bowel gas. Urinary Bladder: The urinary bladder is not fully distended. No calculi or masses identified. Ureteric jets were not visualized on today's exam. IMPRESSION: 1. Small, echogenic right kidney with loss of corticomedullary differentiation in the lower pole; prior CT demonstrated right lower pole infarct. 2. Left kidney with two simple cysts and stable mild pelvicalyceal dilatation. 3. Bladder underdistended; ureteric jets not visualized on today's study. 4. Findings correlate with the prior study. Electronically signed by Isaiah Huitron 03-09-2025 02:43 AM
[2025-03-09] MEDS: SODIUM CHLORIDE 0.9% 500 ML IV SCH (04:07)
[2025-03-09] MEDS: LEVOTHYROXINE SODIUM 25 MCG TABLET PO SCH (05:49)
--- NOTE | 2025-03-09 08:33 | Urology Consultation ---
Date of Consultation March 09, 2025 Assessment & Plan (1) Infarction of kidney: (2) Urothelial carcinoma of kidney: (3) Urge incontinence: Plan 84-year-old female currently admitted for abdominal pain. 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 She follows with Dr. Welsh. She follows with medical oncology as well. She is afebrile with stable vitals. Labs yesterday showed a white blood cell count of 9.7, hemoglobin of 10.6, creatinine of 1.21 which is roughly her baseline, and a urinalysis that was largely negative. CT scan of the abdomen pelvis was in dependently reviewed which shows concern for bilateral renal infarcts. There is also a large right renal mass that has previously been noted. There is lack of enhancement of the right kidney. There is additionally a high-grade small bowel obstruction. A renal artery duplex was performed which showed no Doppler flow in the right lower pole and a left kidney with preserved parenchymal perfusion. Renal arteries were patent bilaterally. She also reports urinary incontinence, likely urge related. No acute urologic intervention necessary. Creatinine is stable and recommend just following kidney function labs. There is not any surgical option to improve perfusion in her kidneys. Fortunately she is asymptomatic Can try gemtesa 75 mg daily while in the hospital for urge incontinence Remainder of care per primary team. No further urologic intervention necessary. Urology to sign off. Keep outpatient follow-up. History of Present Illness Requesting Physician: 84-year-old female currently admitted for abdominal pain. 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 She follows with Dr. Welsh. She follows with medical oncology as well. She is afebrile with stable vitals. Labs yesterday showed a white blood cell count of 9.7, hemoglobin of 10.6, creatinine of 1.21 which is roughly her baseline, and a urinalysis that was largely negative. CT scan of the abdomen pelvis was independently reviewed which shows concern for bilateral renal infarcts. There is also a large right renal mass that has previously been noted. There is lack of enhancement of the right kidney. There is additionally a high-grade small bowel obstruction. A renal artery duplex was performed which showed no Doppler flow in the right lower pole and a left kidney with preserved parenchymal perfusion. Renal arteries were patent bilaterally. She denies any flank pain. She does report worsening urge incontinence but it looks like based on Dr. Welsh last note, he gave her samples of Gemtesa to try at home. Attending Physician: Geradlo Garces DO Allergies Allergy/AdvReac Type Severity Reaction Status Date / Time adhesive Allergy Unknown Rash Verified 02/04/25 10:11 iodine Allergy Unknown Unknown Verified 02/04/25 10:11 morphine AdvReac Unknown Confusion Verified 02/04/25 10:11 oxycodone [From OxyContin] AdvReac Unknown "[place] Verified 02/04/25 10:11 awful" Home Medications Medication Instructions Recorded Confirmed Type diltiazem HCl 240 mg capsule,24 240 mg PO QAM 07/15/24 03/08/25 History hr,extended release levothyroxine 25 mcg tablet 25 mcg PO QAM 07/15/24 03/08/25 History lorazepam 1 mg tablet 1 mg PO TID PRN Anxiety 07/15/24 03/08/25 History omeprazole 20 mg capsule,delayed 20 mg PO QAM 07/15/24 03/08/25 History release paroxetine HCl 10 mg tablet 10 mg PO HS 07/15/24 03/08/25 History dicyclomine 10 mg capsule 10 mg PO TID PRN abdominal pain 10/22/24 03/08/25 Rx #30 caps ibuprofen 600 mg tablet 600 mg PO BID PRN Pain 10/22/24 03/08/25 History multivitamin with iron (Daily 1 tab PO DAILY 01/03/25 03/08/25 History Vites/Iron tablet) ondansetron 8 mg disintegrating 8 mg PO Q8H PRN Nausea 01/16/25 03/08/25 History tablet tramadol 50 mg tablet 50 mg PO Q6H PRN Pain 01/16/25 03/08/25 History Patient History Medical History (Updated 03/09/25 @ 10:54 by Marin Roman MD) Urothelial carcinoma Reason for upcoming procedure Metastatic cancer to lung Reason for upcoming procedure Hyperlipidemia History of back problems Poor historian Hydroureteronephrosis Right kidney larger per patient Osteoporosis Arthritis History of diverticulitis Kidney lesion, cabazon, right Hiatal hernia CXR 12/24/24: Stable hiatal hernia Acid reflux Hypothyroid HTN (hypertension) Anxiety Surgical History (Updated 01/21/25 @ 15:53 by Katina Fowler RN) Port-A-Cath in place (01/20/25) Insertion Access Port with Fluoroscopy(Not Applicable) - Frieda Burnette DO Hx of ventral hernia repair Hx of exploratory laparotomy Exploratory Laparotomy, lysis of adhesions, ileocecectomy History of surgical procedure on mouth top teeth removed History of tubal ligation History of D&C History of surgery on left wrist pins and screws. History of cholecystectomy History of hysterectomy History of colonoscopy (2017) Pain following procedure > urgent care visit and hospitalized for perforation, no surgical intervention required History of intestinal surgery (04/2023) "bowel kinked" Family History Aunt Diabetes Father Heart disease Other No family history of adverse response to anesthesia Social History Smoking Status: Never smoker Tobacco Type: Declines Second Hand Exposure: No; Do You Dip or Chew Tobacco: No; Hx Alcohol Use: No Hx Substance Use: No Preferred Language: Micronesian Communication Ability: Effective Visual Impairment: No 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 Beliefs That Will Affect Care: None marital status: Current Living Situation: Spouse How many Children do You have: 1 Feels Safe at Home: Yes Safety Concerns: Feels Safe At This Time during the past year weight has: remained stable Assistive Devices: Denture - Upper and Glasses Physical Exam Physical Exam: General: Alert and oriented, no acute distress HEENT: Normocephalic, mucous membranes moist Pulmonary: Nonlabored respirations Abdomen: Nondistended Extremities: Moves all 4 spontaneously Neuro: No gross deficits Skin: Warm, dry, no rashes noted Results & Data Vital Signs (Past 12 Hours) Vital Signs Temp Pulse Pulse Resp BP BP Pulse Ox 03/09/25 07:28 36.8 C 96 H 18 136/78 94 03/09/25 02:08 03/09/25 01:39 91 H 03/09/25 01:12 36.9 C 98 H 18 151/85 H 92 03/09/25 00:56 36.9 C 93 H 18 141/76 H 95 03/09/25 00:39 104 H 21 155/81 H 96 03/08/25 23:18 90 03/08/25 23:16 88 20 145/71 H 96 03/08/25 21:08 92 H 20 99 03/08/25 21:02 36.6 C 98 H 18 145/80 H 95 O2 Del Method 03/09/25 07:28 Room Air 03/09/25 02:08 Room Air 03/09/25 01:39 03/09/25 01:12 Room Air 03/09/25 00:56 Room Air 03/09/25 00:39 Room Air 03/08/25 23:18 03/08/25 23:16 Room Air 03/08/25 21:08 Room Air 03/08/25 21:02 Room Air PG Care Time/CCT Total # of Minutes Spent Total Time Spent with Patient: Total time spent is greater than 50% in coordination of care (as documented) at patient's floor/unit and/or counseling patient: Coding Level of Care Code 47374 INT INP/OBS CARE 2/55MIN Diagnoses Infarction of kidney N28.0 Urothelial carcinoma of kidney C64.9 Urge incontinence N39.41
[2025-03-09] MEDS: PANTOprazole 40 MG/10 ML SYR IV SCH (09:11)
[2025-03-09] MEDS: HEPARIN SOD 5,000 UNIT/0.5 ML VIAL SQ SCH (09:11)
[2025-03-09] MEDS: CEROVITE ADV FORMULA TAB PO SCH (09:14)
--- NOTE | 2025-03-09 09:50 | XRay Report ---
Clinical history: Small bowel obstruction 2 views of the abdomen were obtained Findings: There are prominent air-filled small and bowel loops, likely due to ileus. Obstruction is felt to be less likely. No renal or ureteral calculi are seen. Surgical clips are seen suggestive of prior cholecystectomy. There is lumbar scoliosis and degenerative disc disease Impression: Diffuse bowel dilatation that may be due to ileus Electronically signed by Sidney Hendrix 03-09-2025 09:50 AM
--- NOTE | 2025-03-09 13:36 | Hospitalist Progress Note ---
Date of Service March 09, 2025 Assessment & Plan (1) Acute hyponatremia: (2) Infarction of kidney: (3) Small bowel obstruction: (4) Abdominal pain: (5) Urothelial carcinoma of kidney: (6) Metastatic cancer to lung: (7) HTN (hypertension): (8) Hypothyroid: (9) Acid reflux: Plan 84 yo female PMHx urothelial carcinoma of kidney with mets to lung currently on chemo (last treatment 03/05/25, follows with CCP), history of partial R hemicolectomy, hypothyroidism, anxiety admitted with abdominal pain. #Abdominal Pain/SBO -Currently passing flatus, and has had multiple bowel movements -History of R hemicolectomy -Serial abdominal exams -Defer NG tube given lack of current N/V -Surgical consult placed - appreciate recommendations -Zofran PRN nausea -Clear liquid diet initiated, advance as tolerated #Hyponatremia -No current neurologic symptoms -Based on serum/urine osmolality, urine sodium appears hypovolemic, hypotonic hyponatremia -Continue isotonic fluids NSS @ 80cc/hr -Aim for correction 12mmol/24hrs or less #Renal Infarction -R renal, L upper pole renal infarction on CT scan -This correlates to the location of her known carcinomatous masses -Renal US with duplex confirms above without acute changes -Follow renal function/creatinine -Continue hydration as above -Urology consulted - appreciate recommendations #Urothelial carcinoma of kidney -With mets to lung -Currently receiving chemotherapy -Has Mediport in place -Pt/family concerned about how hospitalization/recent antibiotics will effect ongoing therapy -Oncology consulted - appreciate recommendations #HTN Continue diltiazem #Hypothyroidism Continue synthroid #Anxiety/Mental Health Continue Paxil, Ativan #GERD Continue PPI FENGI: NPO, NSS @80cc/hr Code status: full code DVT prophylaxis: heparin Disposition: med/tele Admission and Anticipated Discharge Date Admission Date: March 08, 2025 Supervising Physician Co-Signing Physician Notes I personally examined the patient and verified all lobato points of history and exam, discussed case, and agree with decision making with Dr Ovalle Feeling a lot better. Wants to eat. Belly feeling improved. No new complaints. Vitals noted, in general she is awake and alert pleasant no distress. HEENT normocephalic atraumatic mucous membranes moist. Breathing unlabored no accessory muscle use good effort. Abdomen is soft may be mild distention nontender no guarding no rebound no rigidity no masses. Skin without rashes pallor or icterus. SBOseems to be resolving. Appreciate surgical backup. Continue conservative care. Renal infarctssymptoms seem to be resolving. Appreciate urology assistance. Otherwise as above. Subjective Elizabeth was seen this AM resting comfortably. Patient reports that her abdominal pain is improved and rates it at a 1/10. Patient reports that she had one episode of emesis prior to admit, but currently is not feeling nauseous and denies recurrent episode of vomiting. Patient remains afebrile and hemodynamically stable. Physical Exam Physical Exam: General: patient resting comfortably, NAD, non-toxic in appearance, answers questions appropriately. Skin: warm, dry, intact HEENT: NC/AT, anicteric sclera, conjunctiva without injection, moist mucus membranes. Heart: +S1/S2, regular, no m/r/g Lungs: equal air entry bilaterally, no rales/rhonchi/wheezes Abd: +BS, soft, NT/ND Ext: warm, no clubbing/cyanosis or edema Neuro: nonfocal, speech intact, no facial droop, moving all extremities. Results & Data Results & Data Vital Signs (Past 12 Hours) Vital Signs Temp Pulse Pulse Resp BP Pulse Ox O2 Del Method 03/09/25 11:36 36.5 C 98 H 20 135/79 94 Room Air 03/09/25 07:30 94 H 03/09/25 07:28 36.8 C 96 H 18 136/78 94 Room Air 03/09/25 02:08 Room Air 03/09/25 01:39 91 H Resident Activity Tracking Resident Involvement: Resident Care Provided Care Provided: Adult Hospital Medicine (4) Abdominal pain Abdominal location: unspecified location Qualified Code(s): R10.9 - Unspecified abdominal pain (6) Metastatic cancer to lung Laterality: right Qualified Code(s): C78.01 - Secondary malignant neoplasm of right lung
--- NOTE | 2025-03-09 14:37 | Billing Data ---
Date of Service March 09, 2025 Coding Level of Care Code 13279 SUB INP/OBS CARE MIN
[2025-03-09] MEDS: diphenhydrAMINE 2%/ZINC 0.1% CREAM 28.4GM TUBE EXT PRN (23:14)
[2025-03-10] MEDS: ACETAMINOPHEN 1,000 MG/100 ML VIAL IV PRN (04:13)
[2025-03-10 06:28] LABS: Hematocrit (blood only) 26.0 % (37.0-47.0); Hemoglobin 8.1 g/dl (12.0-16.0); Immature Granulocytes # (auto) 0.02 K/uL (0.01-0.20); Immature Granulocytes % (auto) 0.5 %; Mean Corpuscular Hemoglobin 25.8 pg (25.0-34.0); Mean Corpuscular Volume 82.8 fL (80.0-100.0); Platelet Count 179 K/uL (130-400); RDW Standard Deviation 46.3 fL (36.4-46.3); Red Blood Count 3.14 M/uL (4.20-5.40); White Blood Count 4.37 K/ul (4.8-10.8)
[2025-03-10 07:07] LABS: Alanine Aminotransferase 18.0 U/L (7-52); Albumin Globulin Ratio 0.8 (0.9-2); Alkaline Phosphatase 55.0 U/L (34-104); Anion Gap 8.0 (3-11); Bilirubin,Total 0.4 mg/dl (0.2-1.0); Blood Urea Nitrogen 15.0 mg/dl (6-23); Calcium 8.7 mg/dl (8.6-10.3); Carbon Dioxide 20.0 mmol/L (21-32); Chloride 104.0 mmol/L (98-107); Creatinine Clr Calc Pharmacy 36.8 ml/min; Globulin 3.6 gm/dl (2.5-4.0); Glucose 92.0 mg/dl (70-99(Fasting)); Magnesium 1.9 mg/dl (1.7-2.4); Potassium 3.6 mmol/L (3.5-5.1); Sodium 132.0 mmol/L (136-145); Total Protein 6.6 gm/dl (6.0-8.3)
--- NOTE | 2025-03-10 10:40 | XRay Report ---
KUB HISTORY: sbo COMPARISON STUDY: 03/09/2025. FINDINGS: There is increased diffuse small bowel distention measuring up to 5 cm diameter. There is m ild gaseous distention of the colon measuring up to 9.5 cm diameter, increased. No gross free air see n. IMPRESSION: Increased small and large bowel distention. ACT 112: Negative or not required by law. The above report was generated using voice recognition software. It may contain grammatical, syntax o r spelling errors. Electronically signed by: Alonso Erwin M.D. 03/10/2025 10:39 AM
--- NOTE | 2025-03-10 12:06 | Hospitalist Progress Note ---
Date of Service March 10, 2025 Assessment & Plan (1) Ileus: (2) Abdominal pain: (3) Acute hyponatremia: (4) Infarction of kidney: (5) Urothelial carcinoma of kidney: (6) Metastatic cancer to lung: (7) HTN (hypertension): (8) Hypothyroid: (9) Acid reflux: Plan 84 yo female PMHx urothelial carcinoma of kidney with mets to lung currently on chemo (last treatment 03/05/25, follows with CCP), history of partial R hemicolectomy, admitted for abdominal pain and constipation with suspected SBO. Passed stool on day of admission but at this time no BM in over 24hrs. #Abdominal Pain / Ileus vs SBO History of multiple abdominal surgeries including hemicolectomy - Currently passing flatus but no BM since 1-2 days ago Will defer NG tube decompression for now as pt is passing flatus and not having severe abdominal pain with vomiting Close documentation of BMs and urine output - Continue serial abdominal exams - Gen surg following, appreciate recs- at this time more suspicious of ileus rather than a true SBO - Dilaudid 0.25mg IV q6h prn for pain, Zofran PRN for nausea/vomiting - Back to NPO with ice chips and sips w/ PO meds LR at 80cc/hr while NPO #Hyponatremia Resolved from prior low-mid 120s - No current neurologic symptoms - Based on serum/urine osmolality, urine sodium appears hypovolemic, hypotonic hyponatremia - Continue LR 80cc/hr - BMP AM #Renal Infarction - R renal, L upper pole renal infarction on CT scan- correlates to the location of her known carcinomatous masses - Renal US with duplex confirms above without acute changes - Continue IV hydration as above - Urology following, appreciate recs - BMP AM #Urothelial carcinoma of kidney - Stage IV with mets to lung - Currently on chemotherapy with Enfortumab and Pembrolizumab, Mediport in place - Pt/family concerned about how hospitalization/recent antibiotics will affect ongoing therapy Spoke with Master Willis, pt's daughter and also happens to be a cardiology PA: she is wondering if we can get palliative involved to clarify pt's goals of care in conjunction with Dr. Renae's recommendations for her as far as the trajectory of her cancer treatment; also would like CM to see if there are any social work / support options in [facility] as family aside from live rather far away - Oncology consulted, appreciate recs. Pt states she follows with Dr. Renae outpatient #Abdominal rash/irritation, acute to lower abdomen with itchiness and mild erythema, pt believes it was due to heparin subQ injection Benadryl topical cream q6h prn for itch/redness relief, though unclear if this is an allergic reaction to the heparin or if self-induced by itching with less than clean hands; also considering adverse effects of her chemotherapy meds which do have an adverse effect of skin reactions including macoulopapular rash and pruritus, however her rash is limited to her lower abdomen - Switched to Lovenox 40mg subQ q24, will continue to monitor for fur ther/worsening irritation #HTN Continue diltiazem; BP and HR have been occasionally elevated which may be related to her abdominal pain - continue monitoring VS #Hypothyroidism Continue synthroid #Anxiety/Mental Health Continue Paxil, Ativan #GERD Continue Protonix 40mg IV daily VTE prophylaxis: Lovenox 40mg q24 Disposition: med/tele Admission and Anticipated Discharge Date Admission Date: March 08, 2025 Supervising Physician Co-Signing Physician Notes I personally examined the patient and verified all lobato points of history and exam, discussed case, and agree with decision making with Dr. Begum with the following additions/exceptions: S-patient starting to have increased abdominal pain but did pass some flatus this morning no bowel movement since yesterday. No nausea but later in the day did have an episode of emesis O- Vitals Reviewed Gen: AAOx3, NAD HEENT: Anicteric sclerae, EOMI CV: RRR no mgr nl S1S2 Pulm: CTAB no wcr Abd: +BS softly but mildly distended, positive TTP diffusely without guarding or rebound Ext: No edema Skin: No rashes, warm/dry Neuro: Full strength throughout CBC, BMP, and KUB image personally reviewed I discussed her care with surgery PA A/P: 84-year-old female here with small bowel obstruction which was improving but now starting to worsen again. KUB with ileus - Make n.p.o. and start maintenance IV fluids - Hyponatremia is improving with IV fluids and was secondary to hypovolemia - May need NG tube later if has nausea or vomiting Subjective Elizabeth was seen and evaluated at bedside this AM, eating clear liquid breakfast slowly and carefully. Endorses she has not had a BM in the past day and currently 4-5/10 diffuse lower abdominal pain. Denies any other significant pain or discomfort. Physical Exam Physical Exam: General: patient resting comfortably, NAD, non-toxic in appearance, answers questions appropriately HEENT: NC/AT, anicteric sclera, conjunctiva without injection, moist mucus membranes. CV: RRR, +s1/s2, no m/r/g Resp: equal air entry b/l, no rales/rhonchi/wheezes GI/Abd: +BS, tenderness to palpation of lower>upper quadrants, no obvious distention but some guarding with deep palpation of abdomen; abdomen non-rigid Ext: warm, no clubbing/cyanosis or edema Neuro: nonfocal, speech intact, no facial droop, moving all extremities. Skin: mild erythema to skin of lower abdomen, otherwise no rash or lesions observed Results & Data Results & Data Vital Signs (Past 12 Hours) Vital Signs Temp Pulse Pulse Resp BP Pulse Ox O2 Del Method 03/10/25 12:02 36.7 C 79 16 138/73 94 Room Air 03/10/25 08:20 Room Air 03/10/25 08:08 36.7 C 81 16 139/75 95 Room Air 03/10/25 06:45 80 03/10/25 02:28 36.7 C 97 H 16 133/77 92 Room Air Resident Activity Tracking Resident Involvement: Resident Care Provided Care Provided: Adult Hospital Medicine (2) Abdominal pain Abdominal location: unspecified location Qualified Code(s): R10.9 - Unspecified abdominal pain (6) Metastatic cancer to lung Laterality: right Qualified Code(s): C78.01 - Secondary malignant neoplasm of right lung
[2025-03-10] MEDS: LACTATED RINGER'S 1,000 ML IV SCH (12:10)
--- NOTE | 2025-03-10 12:22 | Surgery Progress Note ---
Date of Service March 10, 2025 Assessment & Plan (1) Abdominal pain: (2) Urothelial carcinoma of kidney: Plan KUB with increase in small bowel distention up to 5 cm but colonic distention as well, favors ileus +Flatus abdomen soft , mildly distended on exam no n,v Plan: No acute surgical intervention recommended at this time continue medical management encourage ambulation to increase GI motility NGT for decompression if vomiting occurs Admission and Anticipated Discharge Date Admission Date: March 08, 2025 Subjective having a rough morning itchy on her stomach and back had a lot of pain last night no nausea or vomiting feels belly feels a little bloated passing gas this morning Physical Exam Constitutional: WD/WN, vitals as above cooperative; no acute distress and not ill appearing Respiratory: normal respiratory effort; no respiratory distress Chest (Breasts): Additional Comments: left sided aport present Gastrointestinal (Abdomen): Inspection/Auscultation: + abdomen distended (mild) and + hypoactive bowel sounds; + abnormal bowel sounds Percussion/Palpation: + abdomen tender (Right mid abdomen) and abdomen soft; no guarding, abdomen not rigid and abdomen not firm Skin: + rash (macular rash abdomen and back) Psychiatric: Orientation: alert and oriented x 3 Results & Data Vital Signs (Past 12 Hours) Vital Signs Temp Pulse Pulse Resp BP Pulse Ox O2 Del Method 03/10/25 12:02 36.7 C 79 16 138/73 94 Room Air 03/10/25 08:20 Room Air 03/10/25 08:08 36.7 C 81 16 139/75 95 Room Air 03/10/25 06:45 80 03/10/25 02:28 36.7 C 97 H 16 133/77 92 Room Air Laboratory Results 03/10/25 Range/Units 05:34 WBC 4.37 L (4.8-10.8) K/ul RBC 3.14 L (4.20-5.40) M/uL Hgb 8.1 L (12.0-16.0) g/dl Hct 26.0 L (37.0-47.0) % MCV 82.8 (80.0-100.0) fL MCH 25.8 (25.0-34.0) pg MCHC 31.2 L (32.0-36.0) g/dL RDW Std Deviation 46.3 (36.4-46.3) fL RDW Coeff of Angy 15.3 H (11.5-14.5) % Plt Count 179 (130-400) K/uL MPV 9.6 (9.4-12.4) fL Immature Gran % (Auto) 0.5 % Neut % (Auto) 78.2 % Lymph % (Auto) 18.1 % [place] % (Auto) 2.7 % Eos % (Auto) 0.0 % Baso % (Auto) 0.5 % Neut # (Auto) 3.42 (1.40-6.50) K/uL Lymph # (Auto) 0.79 L (1.20-3.40) K/uL [place] # (Auto) 0.12 (0.11-0.59) K/uL Eos # (Auto) 0.00 (0.00-0.50) K/uL Baso # (Auto) 0.02 (0.00-0.20) K/uL Immature Gran # (Auto) 0.02 (0.01-0.20) K/uL Sodium 132 L D (136-145) mmol/L Potassium 3.6 (3.5-5.1) mmol/L Chloride 104 (98-107) mmol/L Carbon Dioxide 20 L (21-32) mmol/L Anion Gap 8 (3-11) BUN 15 (6-23) mg/dl Creatinine 1.10 (0.6-1.2) mg/dl Est Cr Clr Drug Dosing 36.8 ml/min eGFR 49.86 BUN/Creatinine Ratio 13.6 (10-20) Glucose 92 (70-99(Fasting)) mg/dl Calcium 8.7 (8.6-10.3) mg/dl Magnesium 1.9 (1.7-2.4) mg/dl Total Bilirubin 0.4 (0.2-1.0) mg/dl AST 19 (13-39) U/L ALT 18 (7-52) U/L Alkaline Phosphatase 55 (34-104) U/L Total Protein 6.6 (6.0-8.3) gm/dl Albumin 3.0 L (3.4-5.0) gm/dl Globulin 3.6 (2.5-4.0) gm/dl Albumin/Globulin Ratio 0.8 L (0.9-2) Diagnostic Findings KUB HISTORY: sbo COMPARISON STUDY: 03/09/2025. FINDINGS: There is increased diffuse small bowel distention measuring up to 5 cm diameter. There is mild gaseous distention of the colon measuring up to 9.5 cm diameter, increased. No gross free air seen. IMPRESSION: Increased small and large bowel distention. (1) Abdominal pain Abdominal location: unspecified location Qualified Code(s): R10.9 - Unspecified abdominal pain
[2025-03-10] MEDS: ENOXAPARIN INJ 40 MG/0.4 ML SYR SQ SCH (13:13)
[2025-03-10] MEDS: ONDANSETRON INJ 2 MG/ML 2 ML VIAL IV PRN (18:24)
--- NOTE | 2025-03-10 19:13 | Billing Data ---
Date of Service March 10, 2025 Coding Level of Care Code 51936 SUB INP/OBS CARE
[2025-03-10] MEDS: ALUMINUM/MAGNESIUM SUSP 30 ML UDC PO PRN (19:37)
--- NOTE | 2025-03-10 21:53 | Palliative Care Consultation ---
Date of Consultation March 10, 2025 Assessment & Plan (1) Abdominal pain, generalized: Abd pain due to SBO/ileus in setting of met urothelial cancer There are a few palliative med reccs/options to treat malignant bowel obstructions: * Metoclopramide: continuousinfusion which can be SQ or IV. Consider starting with 60mg/24 hours then increase to 90mgs and then 120mgs. If there is no benefit at that dose then stop. * Avoid anticholinergicagents as the blockthe prokinetic activity. * Dexamethasone: 8mg QAM and QPM, 16mg/day, then taper as tolerated. * If NG in place: edge gluer efficacy by the NG output volume - if decreasing, try clamping it. * Advance diet as tolerated. * Another alternative would be a recommendation to give Golytely from above (use NG tube if needed) at a rate of 50-100cc/hour. * Would also give mucomyst enema every 8 hours - The dose is: 50ml of 20% mucomyst, mix in 250ml saline and give via rectal enema every 8 hours. * Ask GI re: ?Gastrogaffin enema. * Encourage frequent ambulation to get the bowel moving. * BID regimen of miralax once this obstruction improves. - Can consider use of Amitiza vs ?poss relistor once obstruction improves/no obstruction on imaging. (2) Cancer related pain: Dilaudid 0.25 mg IV every 6 hours as needed is ordered for pain and discomfort as well as IV acetaminophen. She has not required either of these. She had a single dose of tramadol in the past but that medications was discontinued since she was moved to n.p.o. status. She is aware that she can ask for her as needed medications as needed. (3) Weakness generalized: (4) Palliative care by specialist: Introduced Palliative Medicine and explained our role in patient's care. Patient and/or family were receptive to palliative services for goals of care discussions. Reviewed we are different from hospice, a home health nurse visiting service. (5) Advanced care planning/counseling discussion: A 45-minute [id number] advance care planning discussion was held with patient and her at the bedside. We had a lengthy about bowel meds, nausea mgt and treatment. We discussed ACP and I gave them some what-if scenarios to consider and discuss together. They were both very realistic about their age and stated "we don't expect to live forever, we're both in our 80s." We reviewed CPR in context of an advanced, incurable cancer. She was unsure what she would or would not want but was clear she does not envision being on machines at the end of her life - being with her family and making the most of her time would mean the most. They perceive an anticipated survival of months to years from prior d/w cancer teams and we chatted about how this range can be affected by one's tolerance to treatment and frequency of cancer related complications such as obstructions and infections. They have a granddaughter, Master, who is chief PA for [employer] and they run most things by Master before making any decisions. I suggested they have Master set up a portal account so she can review data as it becomes available bc it has been hard for her to connect with patient's providers for test results etc. Both Elizabeth and her are desiring to resume chemo as soon as possible. They share a goal of wanting to try chemo and see if she can extend her life, they understand this would be a control of the cancer but not curative measure, as she does not have a curative cancer. She is tolerating water /?clears - she told me she had jello last night so we discussed option of ?try some Gelatein to help amplify nutrition. Plan As above. Reccs as noted above for SBO mgt No new reccs for cancer pain, she has not used any doses of IV meds and remains NPO. I have asked Cancer clinic to schedule pt for follow up within 2 weeks of dc for pall med, med onc and labs/infusion. Thank you for allowing us to participate in the ongoing care of this patient. Please page with any additional concerns. Rosanne Schroeder DNP Director, Palliative Medicine History of Present Illness Reason for Consultation: On 03/10/25 @ 16:22 Jaiden Begum V. 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 Elizabeth had a small BM last night and a larger few BMs this morning. She is feeling signif better and abd is softer. She denies vomiting but strong food smells trigger nausea She states she is having clears - did not care for broth but did ok with water, jello, [place] ice. Presently denies abd pain. no vomiting feels fatigue and frustrated by readmissions at bedside, wants to get her back on treatment, expresses a lot of anxiety about this and perceives she was "late getting things started on account of the MRI taking 6 weeks to get done" - states there were delays from OSH and she was never given clear answers when she called for follow up. They switched to [facility] because they feel they are treated with more attention. Allergies Allergy/AdvReac Type Severity Reaction Status Date / Time adhesive Allergy Unknown Rash Verified 02/04/25 10:11 iodine Allergy Unknown Unknown Verified 02/04/25 10:11 morphine AdvReac Unknown Confusion Verified 02/04/25 10:11 oxycodone [From OxyContin] AdvReac Unknown "[place] Verified 02/04/25 10:11 awful" Home Medications Medication Instructions Recorded Confirmed Type diltiazem HCl 240 mg capsule,24 240 mg PO QAM 07/15/24 03/08/25 History hr,extended release levothyroxine 25 mcg tablet 25 mcg PO QAM 07/15/24 03/08/25 History lorazepam 1 mg tablet 1 mg PO TID PRN Anxiety 07/15/24 03/08/25 History omeprazole 20 mg capsule,delayed 20 mg PO QAM 07/15/24 03/08/25 History release paroxetine HCl 10 mg tablet 10 mg PO HS 07/15/24 03/08/25 History dicyclomine 10 mg capsule 10 mg PO TID PRN abdominal pain 10/22/24 03/08/25 Rx #30 caps ibuprofen 600 mg tablet 600 mg PO BID PRN Pain 10/22/24 03/08/25 History multivitamin with iron (Daily 1 tab PO DAILY 01/03/25 03/08/25 History Vites/Iron tablet) ondansetron 8 mg disintegrating 8 mg PO Q8H PRN Nausea 01/16/25 03/08/25 History tablet tramadol 50 mg tablet 50 mg PO Q6H PRN Pain 01/16/25 03/08/25 History Patient History Medical History (Updated 03/11/25 @ 14:47 by Joycelyn Schroeder DNP) Urothelial carcinoma Reason for upcoming procedure Metastatic cancer to lung Reason for upcoming procedure Hyperlipidemia History of back problems Poor historian Hydroureteronephrosis Right kidney larger per patient Osteoporosis Arthritis History of diverticulitis Kidney lesion, [place], right Hiatal hernia CXR 12/24/24: Stable hiatal hernia Acid reflux Hypothyroid HTN (hypertension) Anxiety Surgical History (Updated 01/21/25 @ 15:53 by Katina Fowler, BIJU) Port-A-Cath in place (01/20/25) Insertion Access Port with Fluoroscopy(Not Applicable) - Frieda Burnette DO Hx of ventral hernia repair Hx of exploratory laparotomy Exploratory Laparotomy, lysis of adhesions, ileocecectomy History of surgical procedure on mouth top teeth removed History of tubal ligation History of D&C History of surgery on left wrist pins and screws. History of cholecystectomy History of hysterectomy History of colonoscopy (2017) Pain following procedure > urgent care visit and hospitalized for perforation, no surgical intervention required History of intestinal surgery (04/2023) "bowel kinked" Family History Aunt Diabetes Father Heart disease Other No family history of adverse response to anesthesia Social History Smoking Status: Never smoker Tobacco Type: Declines Second Hand Exposure: No; Do You Dip or Chew Tobacco: No; Hx Alcohol Use: No Hx Substance Use: No Preferred Language: Nauruan Communication Ability: Effective Visual Impairment: No Limitations Reimbursement Representative Required: No Beliefs That Will Affect Care: None marital status: Current Living Situation: Spouse How many Children do You have: 1 Feels Safe at Home: Yes during the past year weight has: remained stable Assistive Devices: Cane and Walker Review of Systems Review of Systems: All systems reviewed & are unremarkable except as noted in Subjective Physical Exam Constitutional: WD/WN, vitals as above Eyes: PERRL, conjunctivae normal, anicteric sclerae ENMT: external ear and nose normal, oropharynx normal Neck: trachea midline, no thyromegaly Respiratory: normal respiratory effort, lungs clear to auscultation able to speak in complete sentences and symmetric chest movement Cardiovascular: Rate/Rhythm: regular rate and regular rhythm Gastrointestinal (Abdomen): Inspection/Auscultation: + abdomen distended and + hyperactive bowel sounds Percussion/Palpation: + guarding (Right lower quadrant) and abdomen soft Musculoskeletal: Mild generalized weakness. 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 Skin: Pale, warm to touch. Neurologic: Awake alert oriented x 3. Psychiatric: Good eye contact. Logical/linear thought process. Pleasant and cooperative with exam. Results & Data Vital Signs (Past 12 Hours) Vital Signs Temp Pulse Resp BP Pulse Ox O2 Del Method 03/10/25 19:06 36.5 C 91 H 18 139/76 96 Room Air 03/10/25 12:02 36.7 C 79 16 138/73 94 Room Air Laboratory Results 03/10/25 03/08/25 03/08/25 Range/Units 05:34 23:19 21:53 WBC 4.37 L (4.8-10.8) K/ul RBC 3.14 L (4.20-5.40) M/uL Hgb 8.1 L (12.0-16.0) g/dl POC Hgb 9.2 L (12.0-16.0) g/dl Hct 26.0 L (37.0-47.0) % POC Hct 27 L (37-47) % MCV 82.8 (80.0-100.0) fL MCH 25.8 (25.0-34.0) pg MCHC 31.2 L (32.0-36.0) g/dL RDW Std Deviation 46.3 (36.4-46.3) fL RDW Coeff of Angy 15.3 H (11.5-14.5) % Plt Count 179 (130-400) K/uL MPV 9.6 (9.4-12.4) fL Immature Gran % (Auto) 0.5 % Neut % (Auto) 78.2 % Lymph % (Auto) 18.1 % Anderson % (Auto) 2.7 % Eos % (Auto) 0.0 % Baso % (Auto) 0.5 % Neut # (Auto) 3.42 (1.40-6.50) K/uL Lymph # (Auto) 0.79 L (1.20-3.40) K/uL Anderson # (Auto) 0.12 (0.11-0.59) K/uL Eos # (Auto) 0.00 (0.00-0.50) K/uL Baso # (Auto) 0.02 (0.00-0.20) K/uL Immature Gran # (Auto) 0.02 (0.01-0.20) K/uL RBC Morphology POC Sodium 125 L (135-144) mmol/L Sodium 132 L D 123 L (136-145) mmol/L POC Potassium 3.9 (3.3-5.0) mmol/L Potassium 3.6 (3.5-5.1) mmol/L POC Chloride 92 L (101-112) mmol/L Chloride 104 (98-107) mmol/L Carbon Dioxide 20 L (21-32) mmol/L POC Total CO2 21 L (24-31) mmol/L Anion Gap 8 (3-11) POC Anion Gap 17.0 (16-25) mmol/L POC BUN 20 H (7-18) mg/dl BUN 15 (6-23) mg/dl Creatinine 1.10 (0.6-1.2) mg/dl POC Creatinine 1.3 (0.6-1.3) mg/dl Est Cr Clr Drug Dosing 36.8 ml/min eGFR 49.86 BUN/Creatinine Ratio 13.6 (10-20) Glucose 92 (70-99(Fasting)) mg/dl POC Glucose (other) 131 H (70-99) mg/dl Osmolality (280-300) mOsm/kg Calcium 8.7 (8.6-10.3) mg/dl POC Ioniz Calcium Froilan 1.23 (1.12-1.32) mmol/l Magnesium 1.9 (1.7-2.4) mg/dl Total Bilirubin 0.4 (0.2-1.0) mg/dl AST 19 (13-39) U/L ALT 18 (7-52) U/L Alkaline Phosphatase 55 (34-104) U/L Total Protein 6.6 (6.0-8.3) gm/dl Albumin 3.0 L (3.4-5.0) gm/dl Globulin 3.6 (2.5-4.0) gm/dl Albumin/Globulin Ratio 0.8 L (0.9-2) Lipase (11-82) U/L Urine Color Urine Appearance (Clear) Urine pH (4.5-7.5) Ur Specific [place] (1.000-1.030) Urine Protein (Negative) Urine Glucose (UA) (Negative) Urine Ketones (Negative) Urine Blood (Negative) Urine Nitrite (Negative) Urine Bilirubin (Negative) Urine Urobilinogen (Negative) Ur Leukocyte Esterase (Negative) Urine WBC (Auto) (0-5) /hpf Urine RBC (Auto) (0-2) /hpf U Hyaline Cast (Auto) (0-2) /lpf U Epithel Cells (Auto) (0-2) /hpf Urine Bacteria (Auto) (None Seen) Hyaline Casts (None Presnt) /lpf Urine Osmolality (500-800) mOsm/kg Ur Random Sodium mmol/L Urine Comment 03/08/25 Range/Units 21:50 WBC 9.78 (4.8-10.8) K/ul RBC 3.31 L (4.20-5.40) M/uL Hgb 8.6 L (12.0-16.0) g/dl POC Hgb (12.0-16.0) g/dl Hct 27.0 L (37.0-47.0) % POC Hct (37-47) % MCV 81.6 (80.0-100.0) fL MCH 26.0 (25.0-34.0) pg MCHC 31.9 L (32.0-36.0) g/dL RDW Std Deviation 45.1 (36.4-46.3) fL RDW Coeff of Angy 15.3 H (11.5-14.5) % Plt Count 212 (130-400) K/uL MPV 9.8 (9.4-12.4) fL Immature Gran % (Auto) 0.4 % Neut % (Auto) 88.8 % Lymph % (Auto) 9.5 % Anderson % (Auto) 1.0 % Eos % (Auto) 0.1 % Baso % (Auto) 0.2 % Neut # (Auto) 8.68 H (1.40-6.50) K/uL Lymph # (Auto) 0.93 L (1.20-3.40) K/uL Anderson # (Auto) 0.10 L (0.11-0.59) K/uL Eos # (Auto) 0.01 (0.00-0.50) K/uL Baso # (Auto) 0.02 (0.00-0.20) K/uL Immature Gran # (Auto) 0.04 (0.01-0.20) K/uL RBC Morphology Unremarkable POC Sodium (135-144) mmol/L Sodium 123 L (136-145) mmol/L POC Potassium (3.3-5.0) mmol/L Potassium 3.8 (3.5-5.1) mmol/L POC Chloride (101-112) mmol/L Chloride 93 L (98-107) mmol/L Carbon Dioxide 25 (21-32) mmol/L POC Total CO2 (24-31) mmol/L Anion Gap 5 (3-11) POC Anion Gap (16-25) mmol/L POC BUN (7-18) mg/dl BUN 21 (6-23) mg/dl Creatinine 1.21 H (0.6-1.2) mg/dl POC Creatinine (0.6-1.3) mg/dl Est Cr Clr Drug Dosing 33.6 ml/min eGFR 44.47 BUN/Creatinine Ratio 17.4 (10-20) Glucose 130 H (70-99(Fasting)) mg/dl POC Glucose (other) (70-99) mg/dl Osmolality 261 L (280-300) mOsm/kg Calcium 9.1 (8.6-10.3) mg/dl POC Ioniz Calcium Froilan (1.12-1.32) mmol/l Magnesium (1.7-2.4) mg/dl Total Bilirubin 0.7 (0.2-1.0) mg/dl AST 23 (13-39) U/L ALT 25 (7-52) U/L Alkaline Phosphatase 57 (34-104) U/L Total Protein 7.3 (6.0-8.3) gm/dl Albumin 3.4 (3.4-5.0) gm/dl Globulin 3.9 (2.5-4.0) gm/dl Albumin/Globulin Ratio 0.9 (0.9-2) Lipase 41 (11-82) U/L Urine Color Yellow Urine Appearance Cloudy A (Clear) Urine pH 5.5 (4.5-7.5) Ur Specific [place] 1.021 (1.000-1.030) Urine Protein 2+ H (Negative) Urine Glucose (UA) Negative (Negative) Urine Ketones Trace H (Negative) Urine Blood Negative (Negative) Urine Nitrite Negative (Negative) Urine Bilirubin Negative (Negative) Urine Urobilinogen Negative (Negative) Ur Leukocyte Esterase Negative (Negative) Urine WBC (Auto) 0-5 (0-5) /hpf Urine RBC (Auto) 0-2 (0-2) /hpf U Hyaline Cast (Auto) 6-10 H (0-2) /lpf U Epithel Cells (Auto) 0-2 (0-2) /hpf Urine Bacteria (Auto) None Seen (None Seen) Hyaline Casts Present A (None Presnt) /lpf Urine Osmolality 449 L (500-800) mOsm/kg Ur Random Sodium 12 mmol/L Urine Comment Diagnostic Findings Abdomen/Pelvis CT 03/08/25 21:08 CR Exam(s): CT ABDOMEN + PELVIS With Contrast IV Amt: 93ml opti 320 EXAM: CT Abdomen and Pelvis With Intravenous Contrast CLINICAL HISTORY: Reason for exam: mid abd pain. TECHNIQUE: Axial computed tomography images of the abdomen and pelvis with intravenous contrast. Automated exposure control was utilized for the study. A dose lowering technique was utilized adhering to the principles of ALARA. CONTRAST: Patient received 93ml opti 320 of IV contrast COMPARISON: No relevant prior studies available. FINDINGS: Lung bases: Unremarkable. No mass. No consolidation. Mediastinum: Fluid-filled large hiatal hernia with the gastric fundus and body elevated above the left hemidiaphragm. ABDOMEN: Liver: Extrahepatic biliary ductal dilatation is expected given patient's postoperative state. Gallbladder and bile ducts: Postop changes prior cholecystectomy. Pancreas: Unremarkable. No mass. No ductal dilation. Spleen: Unremarkable. No splenomegaly. Adrenals: Unremarkable. No mass. Kidneys and ureters: There is a lack of enhancement of the right kidney Multiple left renal parapelvic cysts. Left upper pole hypodensity likely representing small infarct within same No hydronephrosis. Stomach and bowel: High-grade small-bowel obstruction with a transition point in the right lower quadrant. Diverticulosis without evidence of diverticulitis. PELVIS: Appendix: No findings to suggest acute appendicitis. Bladder: Unremarkable. No mass. Reproductive: Unremarkable as visualized. ABDOMEN and PELVIS: Intraperitoneal space: Unremarkable. No free air. No significant fluid collection. Bones/joints: No acute fracture. No dislocation. Soft tissues: Unremarkable. Vasculature: See above. Lymph nodes: Unremarkable. No enlarged lymph nodes. IMPRESSION: Right renal infarct Infarct upper pole left kidney High-grade small-bowel obstruction Communications: 03/08/25 23:06 Call Doctor Regarding Acute arterial occlusion/ critical stenosis, called Dr. Cummins on 03/08 23:06 (-04:00) Electronically signed by: Geraldo Roldan MD 03/08/25 23:08 PM Chest X-Ray 03/08/25 21:46 Exam(s): XR CXR 1 VIEW EXAM: XR Chest, 1 View CLINICAL HISTORY: Reason for exam: port?. TECHNIQUE: Frontal view of the chest. COMPARISON: No relevant prior studies available. FINDINGS: Lungs: Unremarkable. No consolidation. Pleural space: Trace left pleural effusion. No pneumothorax. Heart: Unremarkable. No cardiomegaly. Mediastinum: Unremarkable. Normal mediastinal contour. Bones/joints: Unremarkable. No acute fracture. Tubes, lines and devices: Left-sided subcu chest port with its tip in the mid SVC. Upper abdomen: Elevation of the left hemidiaphragm. Postop changes prior cholecystectomy. IMPRESSION: Trace left pleural effusion. Left-sided chest port with its tip at the mid SVC Electronically signed by: Geraldo Roldan MD 03/08/25 23:27 PM Renal Artery Duplex 03/08/25 23:17 EXAM: US duplex renal art/vein BI CLINICAL HISTORY: Renal infarct. TECHNIQUE: Bilateral renal arterial duplex was performed. COMPARISON: CT abdomen and pelvis dated on 07/15/2024. US Renal dated on 03/08/2025. FINDINGS: Kidneys: Right kidney measures 8.65 cm, relatively small in size. Known right lower pole infarct; no Doppler waveforms obtained in this region. Left kidney measures 11.58 cm, normal in size. No evidence of stones or hydronephrosis bilaterally. Few bilateral small renal cysts. Aorta: Proximal aorta: 2.08 cm (AP, Trans) Mid aorta: 1.35 x 1.33 cm, PSV 102.3 cm/s at 60°. Distal aorta: 1.26 x 1.19 cm. Diameter is within normal limits. No atherosclerotic changes throughout the visualized abdominal aorta. Renal Arteries: Parameter Right Renal Artery (RRA) Left Renal Artery (LRA) Proximal PSV/EDV (cm/sec) PSV 72.7 / EDV 18.9, RI 0.74, AC 18° PSV 193.7 / EDV 42.2, RI 0.78, AC 49° Mid PSV/EDV (cm/sec) PSV 81.9 / EDV 17.1, RI 0.79, AC 40° PSV 167.8 / EDV 28.9, RI 0.83, AC 32° Distal PSV/EDV (cm/sec) PSV 88.2 / EDV 19.2, RI 0.78, AC 40° PSV 111.1 / EDV 40.8, RI 0.63, AC 60° Resistive Index (RI) 0.74?0.79 across renal artery 0.63?0.83 across renal artery Renal Artery/Aorta Ratio (RAR) 0.9 1.9 [place] Arteries: Right Kidney Proximal: PSV 18.5 / EDV 3.9 cm/s, RI 0.79 Mid: PSV 14.3 / EDV 3.4 cm/s, RI 0.76 Distal: not visualized due to bowel gas Left Kidney Proximal: PSV 31.2 / EDV 9.3 cm/s, RI 0.70 Mid: PSV 19.2 / EDV 6.3 cm/s, RI 0.67 Distal: PSV 21.0 / EDV 6.9 cm/s, RI 0.67 Reference data: 60% stenosis, RAR 3.1:1, renal artery PSV 180 cm/s. The renal artery/aorta ratio is within normal limits bilaterally. There is no detectable renal artery stenosis bilaterally. IMPRESSION: 1. Relatively small right kidney (8.65 cm) with known right lower pole infarct; no Doppler flow detected in right lower pole. 2. Left kidney normal in size (11.58 cm) with preserved parenchymal perfusion. 3. Renal arteries patent bilaterally, no hemodynamically significant stenosis (RAR 3.1). 4. Aorta normal in caliber and flow. 5. Findings correlate with prior studies. Electronically signed by Isaiah Huitron 03-09-2025 02:30 AM Renal Ultrasound 03/08/25 23:17 EXAM: US renal/blad retro comp CLINICAL HISTORY: Renal infarct TECHNIQUE: A renal ultrasound was performed using grayscale imaging. COMPARISON: CT abdomen and pelvis dated on 07/15/2024. FINDINGS: Right Kidney: The right kidney measures 9.1 cm, smaller compared to the left. It is echogenic, with loss of corticomedullary differentiation in the lower pole. Evaluation of the lower pole is limited due to overlying bowel gas. No hydronephrosis or calculi identified. Right lower pole infarct was seen on prior CT. Left Kidney: The left kidney measures 11.4 cm. A 22 × 19 × 16 mm mid-pole cyst and an 8 × 11 × 8 mm lower pole cyst are seen. There is mild dilatation of the left pelvicalyceal system, unchanged. No calculi or masses. Parenchymal echogenicity, otherwise within normal limits. Evaluation limited due to excessive bowel gas. Urinary Bladder: The urinary bladder is not fully distended. No calculi or masses identified. Ureteric jets were not visualized on today's exam. IMPRESSION: 1. Small, echogenic right kidney with loss of corticomedullary differentiation in the lower pole; prior CT demonstrated right lower pole infarct. 2. Left kidney with two simple cysts and stable mild pelvicalyceal dilatation. 3. Bladder underdistended; ureteric jets not visualized on today's study. 4. Findings correlate with the prior study. Electronically signed by Isaiah Huitron 03-09-2025 02:43 AM KUB X-Ray 03/09/25 07:00 Clinical history: Small bowel obstruction 2 views of the abdomen were obtained Findings: There are prominent air-filled small and bowel loops, likely due to ileus. Obstruction is felt to be less likely. No renal or ureteral calculi are seen. Surgical clips are seen suggestive of prior cholecystectomy. There is lumbar scoliosis and degenerative disc disease Impression: Diffuse bowel dilatation that may be due to ileus Electronically signed by Sidney Hendrix 03-09-2025 09:50 AM KUB X-Ray 03/10/25 06:00 KUB HISTORY: sbo COMPARISON STUDY: 03/09/2025. FINDINGS: There is increased diffuse small bowel distention measuring up to 5 cm diameter. There is mild gaseous distention of the colon measuring up to 9.5 cm diameter, increased. No gross free air seen. IMPRESSION: Increased small and large bowel distention. ACT 112: Negative or not required by law. The above report was generated using voice recognition software. It may contain grammatical, syntax or spelling errors. Electronically signed by: Alonso Erwin M.D. 03/10/2025 10:39 AM PG Care Time/CCT Total # of Minutes Spent Total Time Spent with Patient: Total time spent is greater than 50% in coordination of care (as documented) at patient's floor/unit and/or counseling patient: I spent 110 minutes overall addressing this case: 15 min in medical data review/discussion with referring provider(s) and/or preparation for the visit 20 min in direct interaction with the patient/exam 45 min in Advance Care Planning/Goals of Care discussions as detailed above in note (must be >16min) 15 min in subsequent review and synthesis of assessment and plan 15 min communicating with other providers regarding the patient's case: Advanced Care Planning 43151 Advanced Care Planning 30 Min 52348 Advanced Care Planning Additional 30 [place] [address] IN/OBS CONSULT LVL 4,60M (25 - SIGNIFICANT, SEPARATELY IDENTIFIABLE ) Patient Type New Medical Decision Making High Complexity Diagnoses Abdominal pain, generalized R10.84 Cancer related pain G89.3 Weakness generalized R53.1 Palliative care by specialist Z51.5 Advanced care planning/counseling discussion Z71.89 Additional Codes Advanced Care Planning - 39688 Advanced Care Planning 30 Min: 07209 Advanced Care Planning 30 Min ([id number]) Advanced Care Planning - 85779 Advanced Care Planning Additional 30 Min: 73920 Advanced Care Planning Additional 30 Min ([id number]) Comment [id number]
--- NOTE | 2025-03-10 23:37 | XRay Report ---
Exam(s): XR KUB EXAM: XR Abdomen, 1 View and XR Chest, 1 View CLINICAL HISTORY: confirmation of NG tube placement in stomach. TECHNIQUE: Frontal view of the chest and abdomen/pelvis. COMPARISON: KUB 03/10/2025, CT abdomen pelvis 03/08/2025. FINDINGS: An NG tube is present with the tip above the left hemidiaphragm within a large previously demonstrated intrathoracic hiatal hernia of the left lung base. Surrounding atelectasis. Left subclavian central line tip is in the SVC. Heart is normal size. No CHF. No definite pleural effusion or pneumothorax. Multiple loops of dilated small and large bowel are noted throughout the abdomen most consistent with a bowel obstruction versus ileus. Bones are unchanged. IMPRESSION: NG tube tip within the stomach in a large intrathoracic hiatal hernia at the left lung base. Otherwise no change. Electronically signed by: Prosper Graff M.D. 03/10/25 23:36 PM
--- NOTE | 2025-03-11 00:51 | XRay Report ---
Exam(s): XR KUB EXAM: XR Abdomen, 1 View CLINICAL HISTORY: confirm ng tube placement. TECHNIQUE: Frontal supine view of the abdomen/pelvis. COMPARISON: 03/10/2025 20:15, CT abdomen 03/08/2025. FINDINGS: Unchanged NG tube with tip overlying the left lung base within a large hiatal hernia. Redemonstrated gas-filled loops of bowel in the upper abdomen. Bones are unchanged. IMPRESSION: No significant change. NG tube tip within a large hiatal hernia previously demonstrated on prior studies. Electronically signed by: Prosper Graff M.D. 03/11/25 00:50 AM
--- NOTE | 2025-03-11 01:59 | XRay Report ---
EXAM: XR KUB/Abdomen 1 view CLINICAL HISTORY: confirm ng placement TECHNIQUE: Radiograph of kub/abdomen was acquired. COMPARISON: CR, 03/09/2025 08:32:00 RN REHABILITATION FINDINGS: Gastric shadow seen in left lower hemithorax with the tip of NG tube seen within. Dilated large bowel loop shadows seen. No evidence of air under diaphragm. No obvious radio opacity overlying kidneys/ureters/urinary bladder. No obvious organomegaly. Bony shadows appear unremarkable. IMPRESSION: 1. Gastric shadow seen in left lower hemithorax - Stable with interval placement of NG tube seen within- Possible large hiatus/diaphragmmatic hernia or eventration. Advised CT correlation. 2. Dilated large bowel loop shadows seen- Stable Electronically signed by Mp Walton 03-11-2025 01:58 AM
[2025-03-11] MEDS: diphenhydrAMINE 50 MG/ML VIAL IV STA (05:00)
[2025-03-11 06:11] LABS: Hematocrit (blood only) 24.5 % (37.0-47.0); Hemoglobin 7.8 g/dl (12.0-16.0); Mean Corpuscular Hemoglobin 26.2 pg (25.0-34.0); Mean Corpuscular Volume 82.2 fL (80.0-100.0); Platelet Count 174 K/uL (130-400); RDW Standard Deviation 44.8 fL (36.4-46.3); Red Blood Count 2.98 M/uL (4.20-5.40); White Blood Count 1.69 K/ul (4.8-10.8)
[2025-03-11 06:25] LABS: Anion Gap 6.0 (3-11); Blood Urea Nitrogen 15.0 mg/dl (6-23); Calcium 8.7 mg/dl (8.6-10.3); Carbon Dioxide 23.0 mmol/L (21-32); Chloride 105.0 mmol/L (98-107); Creatinine Clr Calc Pharmacy 38.9 ml/min; Glucose 99.0 mg/dl (70-99(Fasting)); Potassium 3.6 mmol/L (3.5-5.1); Sodium 134.0 mmol/L (136-145)
[2025-03-11 06:47] LABS: Immature Granulocytes # (auto) 0.00 K/uL (0.01-0.20); Immature Granulocytes % (auto) 0.0 %
--- NOTE | 2025-03-11 07:24 | Hospitalist Progress Note ---
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 Reportedly passed a small stool this AM. Requires continued admission to ensure no further bowel obstruction and continuing to progress with oral intake/tolerance. #Abdominal Pain / Ileus vs SBO History of multiple abdominal surgeries including hemicolectomy KUB 03/11/25 showing slight improvement of distention: 5cm -> 4cm of small bowel and 9.5cm -> 9cm of colon - Small BM this AM and small amount of flatus s/p two attempts of NG tube placement night prior due to small emesis. Continue close documentation of BMs and urine output - Continue serial abdominal exams - Gen surg following, appreciate recs- at this time more suspicious of ileus rather than a true SBO, prefer to start clears once consistently stooling but reportedly has tolerated a small amount of clears today - Dilaudid 0.25mg IV q6h prn for pain, Zofran PRN for nausea/vomiting - Back to NPO with ice chips and sips w/ PO meds however may have small amt of clears if requested LR at 80cc/hr while NPO #Anemia #Leukopenia/Neutropenia Hgb 8.1 -> 7.8 without obvious signs or symptoms of bleeding Had pt sign transfusion consent form 03/11/25 ANC down to [address] Renae to start Neupogen 480mcg subQ, continue giving daily until ANC >1000 CBC AM #Periorbital Cellulitis, R upper eyelid Reportedly only on abx for 2 days before coming to hospital, improving Started on Unasyn 1,500mg IV q6h to ensure complete resolution CBC AM #Urothelial carcinoma of kidney - Stage IV with mets to lung - Currently holding chemotherapy with enfortumab and gemcitabine, Mediport in place - Oncology consulted, appreciate recs. Pt states she follows with Dr. Renae outpatient Current leuko/neutropenia likely due to above chemo meds, giving neupogen as above Given potential adverse effect of pneumonitis/pneumonia from chemo meds, ordered chest CT -> unremarkable for acute pulmonary pathology #Renal Infarction - R renal, L upper pole renal infarction on CT scan- correlates to the location of her known carcinomatous masses - Renal US with duplex confirms above without acute changes - Continue IV hydration as above - Urology following, appreciate recs - BMP AM #Abdominal rash/irritation, acute to lower abdomen with itchiness and mild erythema, pt believes it was due to heparin subQ injection Benadryl topical cream q6h prn for itch/redness relief, though unclear if this is an allergic reaction to the heparin or if self-induced by itching with less than clean hands; also considering adverse effects of her chemotherapy meds which do have an adverse effect of skin reactions including rash and pruritus, however her rash is limited to her lower abdomen - Lovenox 40mg subQ q24, will continue to monitor for further/worsening irritation #HTN Continue diltiazem; BP and HR have been occasionally elevated which may be related to her abdominal pain - continue monitoring VS #Hypothyroidism Continue synthroid #Anxiety/Mental Health Continue Paxil, Ativan #GERD Continue Protonix 40mg IV daily VTE prophylaxis: Lovenox 40mg q24 Disposition: med/tele Admission and Anticipated Discharge Date Admission Date: March 08, 2025 Supervising Physician Co-Signing Physician Notes I personally examined the patient and verified all lobato points of history and exam, discussed case, and agree with decision making with Dr. Begum with the following additions/exceptions: S-patient reports she was feeling better this morning with no nausea or abdominal pain and actually had a small bowel movement and passed a small amount of flatus. Throughout the day, she has had no further flatus or BM and is starting to have increasing abdominal pains again. Denies cough or shortness of breath. No nausea. Her son is at the bedside and the patient asks about being treated for the stye in her eye. Reports that she had erythema and swelling down her right cheek as of Monday of last week and took 2 days of oral antibiotics before coming to the hospital. Her son reports it does look much better but there is still some redness. O- Vitals Reviewed Gen: AAOx3, NAD HEENT: Anicteric sclerae, EOMI, mild erythema in right upper eyelid with large stye CV: RRR no mgr nl S1S2 Pulm: CTAB no wcr Abd: + High-pitched bowel sounds, minimal diffuse tenderness palpation without guarding or rebound Ext: No edema Skin: No rashes, warm/dry Neuro: Full strength throughout CBC, BMP, and KUB images, CT chest image personally reviewed A/P: 84-year-old female here with small bowel obstruction which has now improved but remains with ileus and distended bowel on imaging. Passing minimal BMs and flatus, failed attempts at NG tube due to entire stomach herniated into the chest. -Encouraged ambulation, minimizing opioid pain medicines.Keep n.p.o. and continue maintenance IV fluids until passing more flatus and bowel movements -For falling hemoglobin-May need transfusional support by tomorrow. For leukopenia and neutropenia, give Neupogen -There is no evidence of pneumonia on CT of the chest requested by oncology, however she was treated for a stye of the right eye and a periorbital cellulitis on the right-restart antibiotics with IV Unasyn; -Hyponatremia continues to improve-continue IV fluids and keep electrolytes replete - Still awaiting oncology consultation for further recommendations on treatment plan in the future-her chemotherapy with gemcitabine and enfortumab is on hold Subjective Elizabeth was seen and evaluated at bedside this AM, endorses feeling much better than day prior, 0/10 abd pain. She had a small emesis last evening around shift change after drinking some water, but no further emesis overnight or this AM. NG tube placement was unsuccessful, but feeling better this AM. Willing to try a small amount of clears. Physical Exam Physical Exam: General: patient resting comfortably, NAD, non-toxic in appearance, answers questions appropriately HEENT: R upper central eyelid- 1cm erythematous spherical mass observed, no blood or other discharge noted; NC/AT, anicteric sclerae, conjunctiva without injection, moist mucus membranes. CV: RRR, +s1/s2, no m/r/g; mediport in place in L upper chest Resp: equal air entry b/l, no rales/rhonchi/wheezes GI/Abd: +BS, tenderness to palpation of lower>upper quadrants, no obvious distention but some guarding with deep palpation of abdomen; abdomen non-rigid Ext: warm, no clubbing/cyanosis or edema Neuro: no focal deficits, speech intact, no facial droop, moving all extremities. Skin: mild erythema to skin of lower abdomen, otherwise no rash or lesions observed Results & Data Results & Data Vital Signs (Past 12 Hours) Vital Signs Temp Pulse Resp BP Pulse Ox O2 Del Method 03/10/25 22:24 Room Air 03/10/25 22:24 36.6 C 95 H 18 168/83 H 93 Room Air Resident Activity Tracking Resident Involvement: Resident Care Provided Care Provided: Adult Hospital Medicine (2) Abdominal pain Abdominal location: unspecified location Qualified Code(s): R10.9 - Unspecified abdominal pain
[2025-03-11] MEDS: LACTATED RINGER'S 1,000 ML IV SCH (08:40)
--- NOTE | 2025-03-11 10:38 | Surgery Progress Note ---
Date of Service March 11, 2025 Assessment & Plan (1) Abdominal pain: (2) Urothelial carcinoma of kidney: Plan KUB 03/10/25 with increase in small bowel distention up to 5 cm but colonic distention as well, favors ileus. KUB this am pending but per my review looks similar and colon also dilated. abdomen soft , distended on exam, hyperactive bowel sounds this morning no n,v today (emesis yesterday) Plan: No acute surgical intervention recommended at this time encourage ambulation to increase GI motility NGT for decompression if vomiting occurs, may need GI consult for endoscopic placement of NGT given large hiatal hernia KUB to monitor bowel distention NPO until bowel movements continue medical management Dr. Reyes has seen and examined patient. Admission and Anticipated Discharge Date Admission Date: March 08, 2025 Subjective feeling better this morning no abdominal pain no nausea or vomiting this morning not passing gas this morning feels less bloated Physical Exam Constitutional: WD/WN, vitals as above cooperative and comfortable; no acut e distress and not ill appearing Respiratory: normal respiratory effort; no respiratory distress and no labored breathing Gastrointestinal (Abdomen): Inspection/Auscultation: + abdomen distended and + hyperactive bowel sounds Percussion/Palpation: + abdomen tender (RLQ), + guarding (RLQ voluntary on palpation) and abdomen soft; abdomen not rigid and abdomen not firm Skin: no rashes, warm and dry Psychiatric: Orientation: alert and oriented x 3 Results & Data Vital Signs (Past 12 Hours) Vital Signs Temp Pulse Resp BP Pulse Ox O2 Del Method 03/11/25 08:45 Room Air 03/11/25 08:15 36.7 C 90 16 135/78 95 Room Air Laboratory Results 03/11/25 Range/Units 05:26 WBC 1.69 L (4.8-10.8) K/ul RBC 2.98 L (4.20-5.40) M/uL Hgb 7.8 L (12.0-16.0) g/dl Hct 24.5 L (37.0-47.0) % MCV 82.2 (80.0-100.0) fL MCH 26.2 (25.0-34.0) pg MCHC 31.8 L (32.0-36.0) g/dL RDW Std Deviation 44.8 (36.4-46.3) fL RDW Coeff of Angy 15.0 H (11.5-14.5) % Plt Count 174 (130-400) K/uL MPV 9.8 (9.4-12.4) fL Immature Gran % (Auto) 0.0 % Neut % (Auto) 47.3 % Lymph % (Auto) 39.1 % [place] % (Auto) 13.0 % Eos % (Auto) 0.0 % Baso % (Auto) 0.6 % Neut # (Auto) 0.80 L* (1.40-6.50) K/uL Lymph # (Auto) 0.66 L (1.20-3.40) K/uL [place] # (Auto) 0.22 (0.11-0.59) K/uL Eos # (Auto) 0.00 (0.00-0.50) K/uL Baso # (Auto) 0.01 (0.00-0.20) K/uL Immature Gran # (Auto) 0.00 L (0.01-0.20) K/uL Sodium 134 L (136-145) mmol/L Potassium 3.6 (3.5-5.1) mmol/L Chloride 105 (98-107) mmol/L Carbon Dioxide 23 (21-32) mmol/L Anion Gap 6 (3-11) BUN 15 (6-23) mg/dl Creatinine 1.04 (0.6-1.2) mg/dl Est Cr Clr Drug Dosing 38.9 ml/min eGFR 53.33 BUN/Creatinine Ratio 14.4 (10-20) Glucose 99 (70-99(Fasting)) mg/dl Calcium 8.7 (8.6-10.3) mg/dl (1) Abdominal pain Abdominal location: unspecified location Qualified Code(s): R10.9 - Unspecified abdominal pain
--- NOTE | 2025-03-11 11:31 | CT Scan Report ---
CT chest diagnostic wo con CT DOSE: 535.78 mGy.cm CLINICAL HISTORY: r/o penumonitis. TECHNIQUE: Multiaxial CT images of the chest were performed without contrast. A dose lowering techni que was utilized adhering to the principles of ALARA. COMPARISON STUDY: Chest x-ray of 03/08/[address] of 12/09/2024 FINDINGS: There is motion artifact due to difficulty breath-holding. There is a stable large hiatal h ernia with the entire stomach above the diaphragm. Stable mild adjacent atelectasis at the left lower lobe. No other pulmonary consolidation or pleural effusion seen. There is a 1.6 cm subpleural oval n odular density posterior medial right lower lobe, increased in size. No other interval significant pu lmonary nodule seen. No enlarged adenopathy. No pericardial effusion. There are diffuse coronary ilan ry calcifications. There is osteopenia. There are mild thoracic spine degenerative changes. IMPRESSION: 1. No acute pneumonia is seen. 2. Right lower lobe subpleural pulmonary nodule is increased in size. Malignancy is not excluded. At a minimum, follow-up chest CT recommended in 3 months. 3. Otherwise as described. ACT 112: Positive. There are findings on this exam that require communication between the performing entity and the patient following Patient Test Result Information Act ([place] Act 112) guidelines. Electronically signed by: Alonso Erwin M.D. 03/11/2025 11:29 AM
--- NOTE | 2025-03-11 11:47 | XRay Report ---
KUB HISTORY: ileus, distented small and large bowels COMPARISON STUDY: 03/11/2025 and 03/10/2025 FINDINGS: Prior nasogastric tube is no longer seen. Stable hiatal hernia. Stable right upper quadrant surgical clips. Stable diffuse gaseous distention of small bowel and colon measuring up to 9 cm at t he colon and approximately 4 cm at the small bowel. No gross free air is seen. IMPRESSION: Stable mild diffuse gaseous bowel distention. ACT 112: Negative or not required by law. The above report was generated using voice recognition software. It may contain grammatical, syntax o r spelling errors. Electronically signed by: Alonso Erwin M.D. 03/11/2025 11:45 AM
[2025-03-11] MEDS: FILGRASTIM 480 MCG/1.6 ML VIAL SQ ONE (14:00)
--- NOTE | 2025-03-11 16:38 | Billing Data ---
Date of Service March 11, 2025 Coding Level of Care Code 98051 SUB INP/OBS CARE
[2025-03-11] MEDS: AMPICILLIN/SULBACTAM SOD 1,500 MG/100 ML BAG IV SCH (17:25)
--- NOTE | 2025-03-11 19:02 | Oncology Consultation ---
Date of Consultation March 11, 2025 Assessment & Plan (1) Urothelial carcinoma of kidney: (2) Ileus: (3) Abdominal pain, generalized: (4) Small bowel obstruction: (5) Metastatic cancer to lung: Plan 84 year old female with advanced urothelial cancer of the kidney and metastases to the lungs. Patient admitted for abdominal symptoms of nausea and obstipation, small bowel ileus. She was neutropenic and this has resolved. hiatal hernia PLAN: - hold chemotherapy at this time. Patient will discuss next steps with her primary oncologist as an outpatient - recovering cytopenia from Gemzar. transfuse PRBC to keep hemoglobin above 7 - surgical consultation noted and appreciated - supportive care measures regarding ileus. serial imaging studies - serial CBC w diff and electrolyte monitoring ECOG 2. Pt amenable with plan. Case discussed with Dr. Paige. History of Present Illness Reason for Consultation: Urothelial cancer with metastases to the lungs admitted for GI symptoms of nausea and abdominal pain and distension Requesting Physician: Tamara Paige MD Attending Physician: Tamara Paige MD History of Present Illness Pleasant 84 year old female known to Dr. Renae for history of metastatic urothelial cancer to the lungs. Allergies Allergy/AdvReac Type Severity Reaction Status Date / Time adhesive Allergy Unknown Rash Verified 02/04/25 10:11 iodine Allergy Unknown Unknown Verified 02/04/25 10:11 morphine AdvReac Unknown Confusion Verified 02/04/25 10:11 oxycodone [From OxyContin] AdvReac Unknown "[place] Verified 02/04/25 10:11 awful" Home Medications Medication Instructions Recorded Confirmed Type diltiazem HCl 240 mg capsule,24 240 mg PO QAM 07/15/24 03/08/25 History hr,extended release levothyroxine 25 mcg tablet 25 mcg PO QAM 07/15/24 03/08/25 History lorazepam 1 mg tablet 1 mg PO TID PRN Anxiety 07/15/24 03/08/25 History omeprazole 20 mg capsule,delayed 20 mg PO QAM 07/15/24 03/08/25 History release paroxetine HCl 10 mg tablet 10 mg PO HS 07/15/24 03/08/25 History dicyclomine 10 mg capsule 10 mg PO TID PRN abdominal pain 10/22/24 03/08/25 Rx #30 caps ibuprofen 600 mg tablet 600 mg PO BID PRN Pain 10/22/24 03/08/25 History multivitamin with iron (Daily 1 tab PO DAILY 01/03/25 03/08/25 History Vites/Iron tablet) ondansetron 8 mg disintegrating 8 mg PO Q8H PRN Nausea 01/16/25 03/08/25 History tablet tramadol 50 mg tablet 50 mg PO Q6H PRN Pain 01/16/25 03/08/25 History Patient History Medical History (Updated 03/11/25 @ 14:47 by Joycelyn Schroeder DNP) Urothelial carcinoma Reason for upcoming procedure Metastatic cancer to lung Reason for upcoming procedure Hyperlipidemia History of back problems Poor historian Hydroureteronephrosis Right kidney larger per patient Osteoporosis Arthritis History of diverticulitis Kidney lesion, [place], right Hiatal hernia CXR 12/24/24: Stable hiatal hernia Acid reflux Hypothyroid HTN (hypertension) Anxiety Surgical History (Updated 01/21/25 @ 15:53 by Katina Fowler, BIJU) Port-A-Cath in place (01/20/25) Insertion Access Port with Fluoroscopy(Not Applicable) - Frieda Burnette DO Hx of ventral hernia repair Hx of exploratory laparotomy Exploratory Laparotomy, lysis of adhesions, ileocecectomy History of surgical procedure on mouth top teeth removed History of tubal ligation History of D&C History of surgery on left wrist pins and screws. History of cholecystectomy History of hysterectomy History of colonoscopy (2017) Pain following procedure > urgent care visit and hospitalized for perforation, no surgical intervention required History of intestinal surgery (04/2023) "bowel kinked" Family History Aunt Diabetes Father Heart disease Other No family history of adverse response to anesthesia Social History Smoking Status: Never smoker Tobacco Type: Declines Second Hand Exposure: No; Do You Dip or Chew Tobacco: No; Hx Alcohol Use: No Hx Substance Use: No Preferred Language: Romanian Communication Ability: Effective Visual Impairment: No Limitations 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: No Beliefs That Will Affect Care: None marital status: Current Living Situation: Spouse How many Children do You have: 1 Feels Safe at Home: Yes during the past year weight has: remained stable Assistive Devices: Cane and Walker Review of Systems Review of Systems: Constitutional: No Weight Change, No Fever, No Chills, No Night Sweats, No Fatigue, No Malaise ENT/Mouth: No Hearing Changes, No Ear Pain, No Nasal Congestion, No Sinus Pain, No Hoarseness, No sore throat, No Rhinorrhea, No Swallowing Difficulty Eyes: No Eye Pain, No Swelling, No Redness, No Foreign Body, No Discharge, No Vision Changes Cardiovascular: No Chest Pain, No SOB, No PND, No Dyspnea on Exertion, No Orthopnea, No Claudication, No Edema, No Palpitations Respiratory: No Cough, No Sputum, No Wheezing, No Smoke Exposure, No Dyspnea Gastrointestinal: positive for Nausea, No Vomiting, No Diarrhea, No Constipati on, No Pain, No Heartburn, No Anorexia, No Dysphagia, No Hematochezia, No Melena, she is passing gas, No Jaundice Genitourinary: No Dysmenorrhea, No DUB, No Dyspareunia, No Dysuria, No Urinary Frequency, No Hematuria, No Urinary Incontinence, No Urgency, No Flank Pain, No Urinary Flow Changes, No Hesitancy Musculoskeletal: No Arthralgias, No Myalgias, No Joint Swelling, No Joint Stiffness, No Back Pain, No Neck Pain, No Injury History Skin: No Skin Lesions, No Pruritis, No Hair Changes, No Breast/Skin Changes, No Nipple Discharge Neuro: No Weakness, No Numbness, No Paresthesias, No Loss of Consciousness, No Syncope, No Dizziness, No Headache, No Coordination Changes, No Recent Falls Psych: No Anxiety/Panic, No Depression, No Insomnia, No Personality Changes, No Delusions, No Rumination, No SI/HI/AH/VH, No Social Issues, No Memory Changes, No Violence/Abuse Hx., No Eating Concerns Heme/Lymph: No Bruising, No Bleeding, No Transfusions History, No Lymphadenopathy Endocrine: No Polyuria, No Polydipsia, No Temperature Intolerance Physical Exam Physical Exam: VITALS: Reviewed. WEIGHT/BMI reviewed. GEN: Healthy appearing, well-developed, NAD. PSYCH: Good Judgment. AOx3. Normal memory, mood, and affect. HEENT -Head: NC/AT; -Eyes: PERRL, EOMI. No discharge or redn ess; -Ears: External ears are normal. Normal TMs. -Nose: Normal nares. -Mouth and throat: MMM. Normal gums, muc winsome, palate,. Good dentition. NECK: Supple, with no masses. CV: RRR, no m/r/g. LUNGS: CTAB, no w/r/c. ABD: distended, Soft, tender, NBS, no masses or organomegaly. : N/A SKIN: Warm, well perfused. No skin rashes or abnormal lesions. MSK: No deformities, Normal gait. EXT: No clubbing, cyanosis, or edema. NEURO: Ambulating with no limitations. Normal muscle strength and tone. No focal deficits. Results & Data Vital Signs (Past 12 Hours) Vital Signs Temp Pulse Resp BP Pulse Ox O2 Del Method 03/11/25 15:05 36.5 C 87 16 146/78 H 94 Room Air 03/11/25 08:45 Room Air 03/11/25 08:15 36.7 C 90 16 135/78 95 Room Air Laboratory Results 03/11/25 05:26 WBC 1.69 L RBC 2.98 L Hgb 7.8 L Hct 24.5 L MCV 82.2 MCH 26.2 MCHC 31.8 L RDW Std Deviation 44.8 RDW Coeff of Angy 15.0 H Plt Count 174 MPV 9.8 Immature Gran % (Auto) 0.0 Neut % (Auto) 47.3 Lymph % (Auto) 39.1 [place] % (Auto) 13.0 Eos % (Auto) 0.0 Baso % (Auto) 0.6 Neut # (Auto) 0.80 L* Lymph # (Auto) 0.66 L [place] # (Auto) 0.22 Eos # (Auto) 0.00 Baso # (Auto) 0.01 Immature Gran # (Auto) 0.00 L Sodium 134 L Potassium 3.6 Chloride 105 Carbon Dioxide 23 Anion Gap 6 BUN 15 Creatinine 1.04 Est Cr Clr Drug Dosing 38.9 eGFR 53.33 BUN/Creatinine Ratio 14.4 Glucose 99 Calcium 8.7 (5) Metastatic cancer to lung Laterality: right Qualified Code(s): C78.01 - Secondary malignant neoplasm of right lung
[2025-03-11] MEDS: HYDROmorphone INJ 0.5 MG/0.5 ML SYR IV PRN (20:18)
[2025-03-12] MEDS: ACETAMINOPHEN 1,000 MG/100 ML VIAL IV PRN (00:47)
[2025-03-12 06:10] LABS: Hematocrit (blood only) 25.2 % (37.0-47.0); Hemoglobin 8.1 g/dl (12.0-16.0); Mean Corpuscular Hemoglobin 26.6 pg (25.0-34.0); Mean Corpuscular Volume 82.9 fL (80.0-100.0); Platelet Count 156 K/uL (130-400); RDW Standard Deviation 45.7 fL (36.4-46.3); Red Blood Count 3.04 M/uL (4.20-5.40); White Blood Count 13.47 K/ul (4.8-10.8)
[2025-03-12 06:26] LABS: Alanine Aminotransferase 76.0 U/L (7-52); Albumin Globulin Ratio 0.8 (0.9-2); Alkaline Phosphatase 64.0 U/L (34-104); Anion Gap 10.0 (3-11); Bilirubin,Total 0.4 mg/dl (0.2-1.0); Blood Urea Nitrogen 13.0 mg/dl (6-23); Calcium 8.9 mg/dl (8.6-10.3); Carbon Dioxide 22.0 mmol/L (21-32); Chloride 103.0 mmol/L (98-107); Creatinine Clr Calc Pharmacy 41.5 ml/min; Globulin 3.5 gm/dl (2.5-4.0); Glucose 72.0 mg/dl (70-99(Fasting)); Magnesium 1.8 mg/dl (1.7-2.4); Potassium 3.5 mmol/L (3.5-5.1); Sodium 135.0 mmol/L (136-145); Total Protein 6.4 gm/dl (6.0-8.3)
--- NOTE | 2025-03-12 06:59 | Hospitalist Progress Note ---
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 Currently tolerating clears and motivated to ambulate. Requires continued admission to ensure no further bowel obstruction and continuing to progress with oral intake/tolerance. #Abdominal Pain / Ileus vs SBO History of multiple abdominal surgeries including hemicolectomy KUB 03/11/25 showing slight improvement of distention: 5cm -> 4cm of small bowel and 9.5cm -> 9cm of colon Will obtain KUB 03/13 Continues to tolerate clears well Continue close documentation of BMs and urine output - Continue serial abdominal exams - Gen surg following, appreciate recs- continue clears as tolerated - Dilaudid 0.25mg IV q6h prn for pain, Zofran PRN for nausea/vomiting - If vomiting and worsening abdominal pain, attempt NG tube decompression, make NPO and add on LR 80cc/hr #Anemia #Leukopenia/Neutropenia Hgb stable at 8.1, no obvious signs or symptoms of bleeding Had pt sign transfusion consent form 03/11/25 Leuks now up to 13.5 ANC now >1000, thus no longer need for neupogen #Periorbital Cellulitis, R upper eyelid Reportedly only on abx for 2 days before coming to hospital, improving Continue Unasyn 1,500mg IV q6h to ensure complete resolution CBC AM #Elevated liver enzymes new elevations of AST 42 and ALT 76 - in the absence of no significant changes in clinical status or medications aside from administration of Neupogen, and with transient mild-moderate elevations in liver enzymes having been observed in clinical trials, likely this is due to Neupogen CMP AM #Urothelial carcinoma of kidney - Stage IV with mets to lung - Currently holding chemotherapy with Keytruda and gemcitabine, Mediport in place - Oncology consulted, appreciate recs. Pt states she follows with Dr. Renae outpatient Current leuko/neutropenia likely due to above chemo meds, giving neupogen as above Given potential adverse effect of pneumonitis/pneumonia from chemo meds, ordered chest CT -> unremarkable for acute pulmonary pathology #Renal Infarction - R renal, L upper pole renal infarction on CT scan- correlates to the location of her known carcinomatous masses - Renal US with duplex confirms above without acute changes - Continue IV hydration as above - Urology following, appreciate recs #Abdominal rash/irritation, acute to lower abdomen with itchiness and mild erythema, pt believes it was due to heparin subQ injection Benadryl topical cream q6h prn for itch/redness relief, though unclear if this is an allergic reaction to the heparin or if self-induced by itching with less than clean hands; also considering adverse effects of her chemotherapy meds which do have an adverse effect of skin reactions including rash and pruritus, however her rash is limited to her lower abdomen - Lovenox 40mg subQ q24, will continue to monitor for further/worsening irritation #HTN Continue diltiazem; BP and HR have been occasionally elevated which may be related to her abdominal pain - continue monitoring VS #Hypothyroidism Continue synthroid #Anxiety/Mental Health Continue Paxil, Ativan #GERD Continue Protonix 40mg IV daily VTE prophylaxis: Lovenox 40mg q24 Disposition: med/tele Admission and Anticipated Discharge Date Admission Date: March 08, 2025 Supervising Physician Co-Signing Physician Notes I personally examined the patient and verified all lobato points of history and exam, discussed case, and agree with decision making with Dr. Begum with the following additions/exceptions: S-Pt with ongoing abdominal distension, nausea, passed minimal flatus today, no BM. Tolerated small amounts of clears. I discussed her care with Palliative Med and decision made to pursue hospice, no further chemo treatment. SHe is interested in possible venting G tube for chronic ileus/SBO. O- Vitals Reviewed Gen: AAOx3, NAD HEENT: Anicteric sclerae, EOMI, mild erythema in right upper eyelid with large stye CV: RRR no mgr nl S1S2 Pulm: CTAB no wcr Abd: + bowel sounds, minimal diffuse tenderness palpation without guarding or rebound but abdomen more disctended today Ext: No edema Skin: No rashes, warm/dry Neuro: Full strength throughout CBC, BMP, LFTs, CK reviewed A/P: 84-year-old female here with small bowel obstruction which has now improved but remains with ileus and distended bowel on imaging. Passing minimal BMs and flatus, failed attempts at NG tube due to entire stomach herniated into the chest. Now pursuing hospice as outpt, no further chemo -Encouraged ambulation, minimizing opioid pain medicines.Keep n.p.o. and continue maintenance IV fluids until passing more flatus and bowel movements. On clears -consult GI about possible venting G-tube for palliative measure -stye of the right eye -continue antibiotics with IV Unasyn; -Hyponatremia -resolved - appreciate Oncology consult Subjective Elizabeth was seen and evaluated at bedside this AM, having 3-4/10 abdominal pain and more distention than day prior. Endorses belching but minimal flatus, still no BMs reported. Tolerating clears today, motivated to walk 5 laps around the floor again as she did day prior. No SOB, chest pain, dizziness, lightheadedness, nausea reported. Physical Exam Physical Exam: General: patient resting comfortably, NAD, non-toxic in appearance, answers questions appropriately HEENT: R upper central eyelid- dry erythema, no blood or other discharge noted; NC/AT, anicteric sclerae, conjunctiva without injection, moist mucus membranes. CV: RRR, +s1/s2, no m/r/g; mediport in place in L upper chest Resp: equal air entry b/l, no rales/rhonchi/wheezes GI/Abd: +BS, tenderness to palpation of lower>upper quadrants, distended compared to prior exam, some guarding with deep palpation of abdomen; abdomen non-rigid Ext: warm, no clubbing/cyanosis or edema Neuro: no focal deficits, speech intact, no facial droop, moving all extremities. Skin: mild erythema to skin of lower abdomen, otherwise no rash or lesions observed Results & Data Results & Data Vital Signs (Past 12 Hours) Vital Signs Temp Pulse Resp BP Pulse Ox O2 Del Method 03/11/25 23:43 36.7 C 96 H 18 149/77 H 92 Room Air 03/11/25 20:15 Room Air Resident Activity Tracking Resident Involvement: Resident Care Provided Care Provided: Adult Hospital Medicine (2) Abdominal pain Abdominal location: unspecified location Qualified Code(s): R10.9 - Unspecified abdominal pain
[2025-03-12 08:14] LABS: Immature Granulocytes # (auto) 0.83 K/uL (0.01-0.20); Immature Granulocytes % (auto) 6.2 %
--- NOTE | 2025-03-12 09:47 | Surgery Progress Note ---
Date of Service March 12, 2025 Assessment & Plan (1) Ileus: Plan: begins clears ambulate abdomen benign Admission and Anticipated Discharge Date Admission Date: March 08, 2025 Subjective no N/V some flatus BM yesterday Review of Systems Constitutional: no fever and no chills Respiratory: no dyspnea Cardiovascular: no chest pain Gastrointestinal: + change in bowel habits; no abdominal p ain, no nausea and no vomiting Neurologic: no localized weakness Psychiatric: no behavioral changes Physical Exam Constitutional: WD/WN, vitals as above Eyes: no scleral abnormality Respiratory: normal respiratory effort Cardiovascular: Rate/Rhythm: regular rate and regular rhythm Gastrointestinal (Abdomen): Inspection/Auscultation: abdomen normal to inspection, + abdomen distended and normal bowel sounds Percussion/Palpation: abdomen soft; abdomen nontender Skin: no rashes, warm and dry Results & Data Vital Signs (Past 12 Hours) Vital Signs Temp Pulse Resp BP Pulse Ox O2 Del Method 03/12/25 07:53 36.7 C 93 H 16 152/73 H 94 Room Air 03/12/25 07:20 36.6 C 94 H 18 156/74 H 94 Room Air 03/11/25 23:43 36.7 C 96 H 18 149/77 H 92 Room Air
[2025-03-12] MEDS: LORazepam 1 MG TAB PO PRN (12:07)
[2025-03-12 12:48] LABS: Creatine Kinase 23.0 U/L (26-192)
--- NOTE | 2025-03-12 13:38 | Palliative Family Discussion ---
Date of Service March 12, 2025 Patient Directed Conference Time of [id number] Participants: Joycelyn Schroeder DNP Patient participation:yes Patient Support System: and granddaughter Other Healthcare Provider Participation: None Meeting Location: bedside Advanced Directive available: no The patient's surrogate medical decision maker participated: A face to face ACP family meeting was held for TODD WILLIS. This meeting was necessary for determining the appropriate course of treatment. Topics of Discussion Topics of Discussion: 1. I met with Mrs Willis and family. We discussed further chemo is not advised and has not been helping. She acknowledged this and told she has been feeling like things were getting worse/she is feeling sicker and has been thinking more chemo might not be the right thing for her. Her family was extremely supportive. They are in agreement for home with hospice/[facility] preferred, comfort focused care, code status is DNR/DNI. She would like current ileus/SBO resolved to the best extent possible --? we discussed poss role for venting G tube and she expressed interest in this if she can have it, as it would allow for more QOL. She has goals for herself - wants to visit family members/old friends while still able to be mobile. 2. She identifies 3 top goals: relief and prevention of suffering, no prolonged dying, and make the most of the time she has being with family and friends, remaining in her home. 3. I provided education about the hospice benefit: an interdisciplinary program offered by nurses, nurses aides, social workers, chaplains and a medical attendant for patients with a terminal condition and a life expectancy of less than 6 months. This is covered by Medicare at 100%/no out of pocket expense to patient and all meds/supplies needed by patient for the reason they are on hospice are paid for/covered by hospice. The goal is assure quality of life of the patient in their home setting (home, detention, inpatient hospice setting) by providing symptoms management, psychosocial and spiritual support. However, they cannot offer 24 hours care and if the family is unable to provide that care, they will have to consider personal care with out of pocket cost vs. detention placement. We discussed the goals of hospice as a patient service and the goals of care; we discussed EOL trajectories and transitions kiley the emotional impact of realizing mortality as a concrete reality from prior abstract considerations. Pt was reassured that no matter where they are along this trajectory, they are not alone - their medical team will remain by their side through their journey. Discussed the pros/cons of accepting help when especially weakened and distressed by pain-which would also help provide re lief/decrease caregiver burden/strain. Other Content of Meetin. Opportunity given for participants to speak and ask questions. 2. Participants were assured of attention to patient comfort. 3. Reassurance provided. 4. Support was provided for informed, good-umang decisions. 5. Emotions expressed by family were acknowledged and addressed. 6. Follow-up Outpatient: offered, pt will call if desired 7. Plan of Care: home with hospice when medically stable. Surgery to comment on role for poss venting g tube. TS 35min Thank you for allowing us to participate in the ongoing care of this patient. Please page with any additional concerns. Rosanne Schroeder DNP Director, Palliative Medicine
--- NOTE | 2025-03-12 20:01 | Billing Data ---
Date of Service March 12, 2025 Coding Level of Care Code 48943 SUB INP/OBS CARE
[2025-03-12] MEDS: TOBRAMYCIN/DEXAMETHASONE OPH OINT 3.5 GM TUBE OP SCH (20:29)
[2025-03-13 07:12] LABS: Hematocrit (blood only) 25.5 % (37.0-47.0); Hemoglobin 8.0 g/dl (12.0-16.0); Mean Corpuscular Hemoglobin 25.8 pg (25.0-34.0); Mean Corpuscular Volume 82.3 fL (80.0-100.0); Platelet Count 158 K/uL (130-400); RDW Standard Deviation 45.9 fL (36.4-46.3); Red Blood Count 3.10 M/uL (4.20-5.40); White Blood Count 13.40 K/ul (4.8-10.8)
[2025-03-13 07:29] LABS: Alanine Aminotransferase 156.0 U/L (7-52); Albumin Globulin Ratio 0.8 (0.9-2); Alkaline Phosphatase 73.0 U/L (34-104); Anion Gap 7.0 (3-11); Bilirubin,Total 0.3 mg/dl (0.2-1.0); Blood Urea Nitrogen 10.0 mg/dl (6-23); Calcium 8.6 mg/dl (8.6-10.3); Carbon Dioxide 25.0 mmol/L (21-32); Chloride 104.0 mmol/L (98-107); Creatinine Clr Calc Pharmacy 41.9 ml/min; Globulin 3.3 gm/dl (2.5-4.0); Glucose 82.0 mg/dl (70-99(Fasting)); Potassium 3.2 mmol/L (3.5-5.1); Sodium 136.0 mmol/L (136-145); Total Protein 6.1 gm/dl (6.0-8.3)
[2025-03-13 07:42] LABS: Acanthocytes 1+; Dohle Bodies 1+; Immature Granulocytes # (auto) 0.44 K/uL (0.01-0.20); Immature Granulocytes % (auto) 3.3 %; Toxic Granulation 1+
[2025-03-13] MEDS ORDERED: METOCLOPRAMIDE HCL INJ 5 MG/ML 2 ML VIAL IV PRN (09:19)
[2025-03-13] MEDS: POTASSIUM CHLORIDE CRTAB 20 MEQ TABCR PO SCH (09:27)
--- NOTE | 2025-03-13 09:27 | Hospitalist Progress Note ---
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 Currently tolerating clears and motivated to ambulate. Requires continued admission for decompression of bowel pseudo-obstruction by GI team, discharge to home hospice once regular BMs and progression of oral intake/tolerance. 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 KUB 03/13/25 showing stable mild diffuse gaseous distension of both small and large bowel GI consulted, appreciate recs: they will proceed with rectal tube for decompression of likely pseudo-obstruction Continues to tolerate clears well, though eating small amounts at a time Continue close documentation of BMs and urine output - Continue serial abdominal exams - Gen surg following, appreciate recs- continue clears as tolerated - Discontinuing Dilaudid to help encourage gut peristalsis; keeping tramadol on board as needed for 9-10/10 pain Adding toradol as needed for 6-8/10 pain - Continue Zofran PRN for nausea/vomiting, Reglan 10mg q6 prn added for additional nausea control - If vomiting and worsening abdominal pain, attempt NG tube decompression, make NPO and add on LR 80cc/hr #Elevated liver enzymes Further elevations of AST to 214 and ALT to 156 CT Abd/pelvis from 03/08/25 showing extrahepatic biliary ductal dilatation, no specific liver findings noted - in the absence of no significant changes in clinical status or medications aside from administration of unasyn and neupogen, likely due to one of these Discontinued unasyn, neupogen only given once CMP AM #Anemia, stable #Leukopenia/Neutropenia, resolved Hgb stable at 8.0, no obvious signs or symptoms of bleeding Had pt sign transfusion consent form 03/11/25 Leuks up to 13.4 ANC still >1000, no further neupogen CBC AM #Periorbital Cellulitis, R upper eyelid Reportedly only on abx for 2 days before coming to hospital, improving Discontinuing Unasyn due to sufficient abx duration and clinical improvement, also due to possible drug-induced acute transaminitis Continue tobra/dex as prescribed CBC AM #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 Pt states she follows with Dr. Renae outpatient Leuko/neutropenia resolved with one dosage of Neupogen 03/11/25 Given potential adverse effect of pneumonitis/pneumonia from chemo meds, ordered chest CT -> unremarkable for acute pulmonary pathology #Renal Infarction - R renal, L upper pole renal infarction on CT scan- correlates to the location of her known carcinomatous masses - Renal US with duplex confirms above without acute changes - Continue IV hydration for NPO as above - Urology following, appreciate recs #Abdominal rash/irritation, acute to lower abdomen with itchiness and mild erythema, pt believes it was due to heparin subQ injection Benadryl topical cream q6h prn for itch/redness relief, though unclear if this is an allergic reaction to the heparin or if self-induced by itching with less than clean hands; also considering adverse effects of her chemotherapy meds which do have an adverse effect of skin reactions including rash and pruritus, however her rash is limited to her lower abdomen - Lovenox 40mg subQ q24, will continue to monitor for further/worsening irritation #HTN Hold diltiazem as could contribute to ileus; BP and HR have been occasionally elevated which may be related to her abdominal pain - continue monitoring VS #Hypothyroidism Continue synthroid #Anxiety/Mental Health Continue Paxil, Ativan #GERD Continue Protonix 40mg IV daily VTE prophylaxis: Lovenox 40mg q24 Disposition: med/surg; home hospice with home health upon discharge, pending bowel decompression and regular bowel movements Admission and Anticipated Discharge Date Admission Date: March 08, 2025 Supervising Physician Co-Signing Physician Notes Co-Signing Physician Notes I personally examined the patient and verified all lobato points of history and exam, discussed case, and agree with decision making with Dr. Begum with the following additions/exceptions: S-Pt seen in evening and after GI placed rectal tube, she walked numerous laps around unit and then had leaking around tube. GI recommended removal and RN reports pt had massive amounts of flatus and multiple loose stools. Pt reports feeling much improved now, no nausea, is hungry for regular food and wants to take prune juice. O- Vitals Reviewed Gen: AAOx3, NAD HEENT: Anicteric sclerae, EOMI, mild erythema in right upper eyelid with large stye CV: RRR no mgr nl S1S2 Pulm: CTAB no wcr Abd: + high pitched bowel sounds, much less distended, soft, NT Ext: No edema Skin: No rashes, warm/dry Neuro: Full strength throughout CBC, BMP, LFTs, KUB image personally reviewed A/P: 84-year-old female here with small bowel obstruction which was actually more pseudo-obstruction, now much improved fter rectal tube. Passing significant amounts of flatus and multiple stools, improving -KUB in [place] -schedule reglan qid -change IV PPI to po, IV APAP to po -adv diet to low fiber and advised not to overeat Appreciate GI and SUrgery recommendations -Encouraged ambulation, minimizing opioid pain medicines, and stop diltiazem as can cause ileus -stye of the right eye -finished 5 days of abx between inpatient and outpt, LFTs rising could be side effect of Unasyn -Hyponatremia -resolved - appreciate Oncology consult Improving, possible dc to home in 1-2 days Subjective Elizabeth was seen and evaluated at bedside this AM, currently with 0/10 abdominal pain and slightly less distention than day prior. States she has not had a BM in 1-2 days but has since passed some flatus, mostly belching though. Still tolerating clear liquid diet. States she did 10 laps around the floor day prior, willing to do the same or more today. No SOB, chest pain, dizziness, lightheadedness, nausea reported. Physical Exam Physical Exam: General: patient resting comfortably, NAD, non-toxic in appearance, answers questions appropriately HEENT: R upper central eyelid- <1cm circular area of swelling and erythema, remainder of upper eyelid dry skin and mild erythema, no blood or other discharge noted; NC/AT, anicteric sclerae, conjunctiva without injection, moist mucus membranes. CV: RRR, +s1/s2, no m/r/g; mediport in place in L upper chest Resp: equal air entry b/l, no rales/rhonchi/wheezes GI/Abd: +BS, mild tenderness to palpation of lower>upper quadrants, moderate distention apparently improved from prior exam, no guarding, abdomen non-rigid Ext: 1+ pitting edema of b/l LE up to mid-shins; warm, no clubbing/cyanosis Neuro: no focal deficits, speech intact, no facial droop, moving all extremities. Skin: mild erythema to skin of lower abdomen, otherwise no rash or lesions observed Results & Data Results & Data Vital Signs (Past 12 Hours) Vital Signs Temp Pulse Resp BP Pulse Ox O2 Del Method 03/13/25 08:20 36.7 C 91 H 19 156/79 H 94 Room Air 03/12/25 23:16 36.8 C 88 18 151/74 H 94 Room Air Resident Activity Tracking Resident Involvement: Resident Care Provided Care Provided: Adult Hospital Medicine (2) Abdominal pain Abdominal location: unspecified location Qualified Code(s): R10.9 - Unspecified abdominal pain
--- NOTE | 2025-03-13 09:57 | XRay Report ---
KUB HISTORY: ileus, abdominal distention; compare w/ prior COMPARISON STUDY: 03/11/2025 FINDINGS: There is stable mild diffuse gaseous distention of small and large bowel. No gross free air . IMPRESSION: Stable diffuse gaseous bowel distention. ACT 112: Negative or not required by law. The above report was generated using voice recognition software. It may contain grammatical, syntax o r spelling errors. Electronically signed by: Alonso Erwin M.D. 03/13/2025 9:56 AM
--- NOTE | 2025-03-13 12:14 | Gastrointestinal Consultation ---
Date of Consultation March 13, 2025 Assessment & Plan (1) New [place] syndrome: Regarding the request for a venting G tube, the patient has CT imaging demonstrating a large hiatal hernia with the stomach entirely above the diaphragm in the chest so a G tube would not be possible. However it does not appear that this would be the fix for her issue anyway as it seems on her xray imaging her distention is of the small bowel and colon more in line with an Jean Paul picture. Discussed placement of a rectal tube with patient and RN. Patient is agreeable. Patient notes she is eating liquids and moving her body as much as possible. Would advise avoidance of narcotics. Would recommend discontinuation of Dilti azem. Supervising Physician Co-Signing Physician Notes Ileus patient states following her last dose of chemo. 10+ days ago. She says she felt reasonably well prior to that. Patient started to have spontaneous bowel movements this a.m. by nursing report. She has a rectal tube in now. Reviewed with nursing they think there is some leakage around the actual rectal tube. Recommended they remove it. Subsequent removal of rectal tube she is actually had a few spontaneous bowel movements. Ileus related to oncological medications age plus or minus her diltiazem. Seems to start to have spontaneous bowel movements. Will follow. Leave rectal tube out at this time. History of Present Illness Reason for Consultation: Possible venting G tube Attending Physician: Tamara Paige MD History of Present Illness Patient is an 84 yo female with urothelial carcinoma of the kidney who is currently working with palliative care with a focus on quality of life. GI has been engaged in her care for consideration of a venting G tube. Patient has CT imaging of the chest that shows that a large hiatal hernia with her entire stomach is above the diaphragm in her chest. Xray imaging does show distention of the small bowel and colon. Patient notes that she had been immobile for some time. She notes she is now trying to get up and move to stimulate bowel movements. Last bowel movement was 03/11/25. She is passing gas, but feels like she has more that needs to come out. She is eating clear liquids at this point. Recent TSH in January 2025 normal. Allergies Allergy/AdvReac Type Severity Reaction Status Date / Time adhesive Allergy Unknown Rash Verified 02/04/25 10:11 iodine Allergy Unknown Unknown Verified 02/04/25 10:11 morphine AdvReac Unknown Confusion Verified 02/04/25 10:11 oxycodone [From OxyContin] AdvReac Unknown "[place] Verified 02/04/25 10:11 awful" Home Medications Medication Instructions Recorded Confirmed Type diltiazem HCl 240 mg capsule,24 240 mg PO QAM 07/15/24 03/08/25 History hr,extended release levothyroxine 25 mcg tablet 25 mcg PO QAM 07/15/24 03/08/25 History lorazepam 1 mg tablet 1 mg PO TID PRN Anxiety 07/15/24 03/08/25 History omeprazole 20 mg capsule,delayed 20 mg PO QAM 07/15/24 03/08/25 History release paroxetine HCl 10 mg tablet 10 mg PO HS 07/15/24 03/08/25 History dicyclomine 10 mg capsule 10 mg PO TID PRN abdominal pain 10/22/24 03/08/25 Rx #30 caps ibuprofen 600 mg tablet 600 mg PO BID PRN Pain 10/22/24 03/08/25 History multivitamin with iron (Daily 1 tab PO DAILY 01/03/25 03/08/25 History Vites/Iron tablet) ondansetron 8 mg disintegrating 8 mg PO Q8H PRN Nausea 01/16/25 03/08/25 History tablet tramadol 50 mg tablet 50 mg PO Q6H PRN Pain 01/16/25 03/08/25 History Patient History Medical History Urothelial carcinoma Reason for upcoming procedure Metastatic cancer to lung Reason for upcoming procedure Hyperlipidemia History of back problems Poor historian Hydroureteronephrosis Right kidney larger per patient Osteoporosis Arthritis History of diverticulitis Kidney lesion, [place], right Hiatal hernia CXR 12/24/24: Stable hiatal hernia Acid reflux Hypothyroid HTN (hypertension) Anxiety Surgical History Port-A-Cath in place (01/20/25) Insertion Access Port with Fluoroscopy(Not Applicable) - Frieda Burnette DO Hx of ventral hernia repair Hx of exploratory laparotomy Exploratory Laparotomy, lysis of adhesions, ileocecectomy History of surgical procedure on mouth top teeth removed History of tubal ligation History of D&C History of surgery on left wrist pins and screws. History of cholecystectomy History of hysterectomy History of colonoscopy (2018) Pain following procedure > urgent care visit and hospitalized for perforation, no surgical intervention required History of intestinal surgery (04/2023) "bowel kinked" Family History Aunt Diabetes Father Heart disease Other No family history of adverse response to anesthesia Social History Smoking Status: Never smoker Tobacco Type: Declines Second Hand Exposure: No; Do You Dip or Chew Tobacco: No; Hx Alcohol Use: No Hx Substance Use: No Preferred Language: Micronesian Communication Ability: Effective Visual Impairment: No Limitations Front Desk Receptionist Required: No Beliefs That Will Affect Care: None marital status: Current Living Situation: Spouse How many Children do You have: 1 Feels Safe at Home: Yes during the past year weight has: remained stable Assistive Devices: Cane and Walker Review of Systems Constitutional: no fever and no chills Respiratory: no cough and no dyspnea Cardiovascular: no chest pain Gastrointestinal: + bloating, + nausea, + change in bowel habits and + constipation; no abdominal pain, no heartburn, no vomiting and no blood in stools Physical Exam Constitutional: well developed Gastrointestinal (Abdomen): normal bowel sounds, soft, nontender, no hepat osplenomegaly Results & Data Vital Signs (Past 12 Hours) Vital Signs Temp Pulse Resp BP Pulse Ox O2 Del Method 03/13/25 08:20 36.7 C 91 H 19 156/79 H 94 Room Air PG Care Time/CCT Total # of Minutes Spent Total Time Spent with Patient: Total time spent is greater than 50% in coordination of care (as documented) at patient's floor/unit and/or counseling patient: Coding Level of Care Code 90264 INT INP/OBS CARE 3/75MIN 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
[2025-03-13] MEDS ORDERED: KETOROLAC TROMETHAMINE 15 MG/ML VIAL IV PRN (12:33)
[2025-03-13] MEDS: HEPARIN 100 UNIT/ML 5ML FLUSH FLUSH PRN (13:22)
--- NOTE | 2025-03-13 14:26 | Surgery Progress Note ---
Date of Service March 13, 2025 Assessment & Plan (1) Ileus: Plan: KUB today with persistent and stable diffuse small and large bowel distention Consistent with Ileus/Thurmond's Discussed with DR. Paige this morning about GI consult for possible decompression, per note recommending rectal tube. I agree this would likely benefit patient given colonic distention. Although she had liquid bowel movement today, she is not passing much flatus. Continue to ambulate as much as possible continue medical management No surgical intervention required , our services are signing off, call with questions concerns. Admission and Anticipated Discharge Date Admission Date: March 08, 2025 Subjective feeling okay feeling bloated belching had diarrhea earlier no abdominal pain walking hallway not passing alot of gas though Physical Exam Constitutional: WD/WN, vitals as above cooperative and comfortable; no acute distress and not ill appearing Gastrointestinal (Abdomen): Inspection/Auscultation: + abdomen distended Percussion/Palpation: abdomen soft; abdomen nontender, no guarding, abdomen not rigid and abdomen not firm Skin: no rashes, warm and dry Psychiatric: Orientation: alert and oriented x 3 Results & Data Vital Signs (Past 12 Hours) Vital Signs Temp Pulse Resp BP Pulse Ox O2 Del Method 03/13/25 08:20 36.7 C 91 H 19 156/79 H 94 Room Air Laboratory Results 03/13/25 Range/Units 06:23 WBC 13.40 H (4.8-10.8) K/ul RBC 3.10 L (4.20-5.40) M/uL Hgb 8.0 L (12.0-16.0) g/dl Hct 25.5 L (37.0-47.0) % MCV 82.3 (80.0-100.0) fL MCH 25.8 (25.0-34.0) pg MCHC 31.4 L (32.0-36.0) g/dL RDW Std Deviation 45.9 (36.4-46.3) fL RDW Coeff of Angy 15.2 H (11.5-14.5) % Plt Count 158 (130-400) K/uL MPV 9.5 (9.4-12.4) fL Immature Gran % (Auto) 3.3 % Neut % (Auto) 82.4 % Lymph % (Auto) 8.4 % [place] % (Auto) 5.7 % Eos % (Auto) 0.1 % Baso % (Auto) 0.1 % Neut # (Auto) 11.05 H (1.40-6.50) K/uL Lymph # (Auto) 1.13 L (1.20-3.40) K/uL [place] # (Auto) 0.76 H (0.11-0.59) K/uL Eos # (Auto) 0.01 (0.00-0.50) K/uL Baso # (Auto) 0.01 (0.00-0.20) K/uL Immature Gran # (Auto) 0.44 H (0.01-0.20) K/uL Toxic Granulation 1+ Dohle Bodies 1+ Acanthocytes (Spur) 1+ Sodium 136 (136-145) mmol/L Potassium 3.2 L (3.5-5.1) mmol/L Chloride 104 (98-107) mmol/L Carbon Dioxide 25 (21-32) mmol/L Anion Gap 7 (3-11) BUN 10 (6-23) mg/dl Creatinine 0.96 (0.6-1.2) mg/dl Est Cr Clr Drug Dosing 41.9 ml/min eGFR 58.71 BUN/Creatinine Ratio 10.4 (10-20) Glucose 82 (70-99(Fasting)) mg/dl Calcium 8.6 (8.6-10.3) mg/dl Total Bilirubin 0.3 (0.2-1.0) mg/dl AST 214 H (13-39) U/L ALT 156 H (7-52) U/L Alkaline Phosphatase 73 (34-104) U/L Total Protein 6.1 (6.0-8.3) gm/dl Albumin 2.8 L (3.4-5.0) gm/dl Globulin 3.3 (2.5-4.0) gm/dl Albumin/Globulin Ratio 0.8 L (0.9-2) Diagnostic Findings KUB HISTORY: ileus, abdominal distention; compare w/ prior COMPARISON STUDY: 03/11/2025 FINDINGS: There is stable mild diffuse gaseous distention of small and large bowel. No gross free air. IMPRESSION: Stable diffuse gaseous bowel distention.
--- NOTE | 2025-03-13 14:46 | Palliative Care Consultation ---
Date of Consultation March 13, 2025 History of Present Illness Attending Physician: Tamara Paige MD Allergies Allergy/AdvReac Type Severity Reaction Status Date / Time adhesive Allergy Unknown Rash Verified 02/04/25 10:11 iodine Allergy Unknown Unknown Verified 02/04/25 10:11 morphine AdvReac Unknown Confusion Verified 02/04/25 10:11 oxycodone [From OxyContin] AdvReac Unknown "[place] Verified 02/04/25 10:11 awful" Home Medications Medication Instructions Recorded Confirmed Type diltiazem HCl 240 mg capsule,24 240 mg PO QAM 07/15/24 03/08/25 History hr,extended release levothyroxine 25 mcg tablet 25 mcg PO QAM 07/15/24 03/08/25 History lorazepam 1 mg tablet 1 mg PO TID PRN Anxiety 07/15/24 03/08/25 History omeprazole 20 mg capsule,delayed 20 mg PO QAM 07/15/24 03/08/25 History release paroxetine HCl 10 mg tablet 10 mg PO HS 07/15/24 03/08/25 History dicyclomine 10 mg capsule 10 mg PO TID PRN abdominal pain 10/22/24 03/08/25 Rx #30 caps ibuprofen 600 mg tablet 600 mg PO BID PRN Pain 10/22/24 03/08/25 History multivitamin with iron (Daily 1 tab PO DAILY 01/03/25 03/08/25 History Vites/Iron tablet) ondansetron 8 mg disintegrating 8 mg PO Q8H PRN Nausea 01/16/25 03/08/25 History tablet tramadol 50 mg tablet 50 mg PO Q6H PRN Pain 01/16/25 03/08/25 History Patient History Medical History Urothelial carcinoma Reason for upcoming procedure Metastatic cancer to lung Reason for upcoming procedure Hyperlipidemia History of back problems Poor historian Hydroureteronephrosis Right kidney larger per patient Osteoporosis Arthritis History of diverticulitis Kidney lesion, [place], right Hiatal hernia CXR 12/24/24: Stable hiatal hernia Acid reflux Hypothyroid HTN (hypertension) Anxiety Surgical History Port-A-Cath in place (01/20/25) Insertion Access Port with Fluoroscopy(Not Applicable) - Frieda Burnette DO Hx of ventral hernia repair Hx of exploratory laparotomy Exploratory Laparotomy, lysis of adhesions, ileocecectomy History of surgical procedure on mouth top teeth removed History of tubal ligation History of D&C History of surgery on left wrist pins and screws. History of cholecystectomy History of hysterectomy History of colonoscopy (2017) Pain following procedure > urgent care visit and hospitalized for perforation, no surgical intervention required History of intestinal surgery (04/2023) "bowel kinked" Family History Aunt Diabetes Father Heart disease Other No family history of adverse response to anesthesia Social History Smoking Status: Never smoker Tobacco Type: Declines Second Hand Exposure: No; Do You Dip or Chew Tobacco: No; Hx Alcohol Use: No Hx Substance Use: No Preferred Language: Kyrgyz Communication Ability: Effective Visual Impairment: No Limitations Safety And Security Manager Required: No Beliefs That Will Affect Care: None marital status: Current Living Situation: Spouse How many Children do You have: 1 Feels Safe at Home: Yes during the past year weight has: remained stable Assistive Devices: Cane and Walker Results & Data Vital Signs (Past 12 Hours) Vital Signs Temp Pulse Resp BP Pulse Ox O2 Del Method 03/13/25 08:20 36.7 C 91 H 19 156/79 H 94 Room Air PG Care Time/CCT Total # of Minutes Spent Total Time Spent with Patient: Total time spent is greater than 50% in coordination of care (as documented) at patient's floor/unit and/or counseling patient: Coding
[2025-03-13 15:09] VITALS: RESP 16
--- NOTE | 2025-03-13 17:33 | Palliative Care Progress Note ---
Date of Service March 13, 2025 Assessment & Plan (1) Palliative care by specialist: Plan: Palliative care will continue to follow for ongoing EOL pt care and family support. (2) Weakness generalized: (3) Abdominal pain, generalized: Plan: Pt states that her abdominal discomfort has improved after taking walks around [place] and large volume flatus this morning. She had small liquid BM today. GI surgery rec for rectal tube and encourage mobility. Discussed adding low dose duragesic with attending Dr. Paige who has added reglan to regime and wishes to avoid opiate at this time. Given pt's increased flatus and improved pain, this is sensible approach along with rectal tube for further decompression if pt agreeable. Plan as above Admission and Anticipated Discharge Date Admission Date: March 08, 2025 Subjective Assessed pt at bedside, no visitors present. Pt states that her abdominal discomfort has improved after taking walks around [place] and large volume flatus this morning. She shared that she is hopeful that GI surgery can offer definitive "fix" for her. Review of Systems Review of Systems: All systems reviewed & are unremarkable except as noted in Subjective Physical Exam Constitutional: WD/WN, vitals as above cooperative and comfortable; no acute distress and not ill appearing Gastrointestinal (Abdomen): Inspection/Auscultation: + abdomen distended Percussion/Palpation: abdomen soft; abdomen nontender, no guarding, abdomen not rigid and abdomen not firm Skin: no rashes, warm and dry Psychiatric: Orientation: alert and oriented x 3 Results & Data Vital Signs (Past 12 Hours) Vital Signs Temp Pulse Resp BP Pulse Ox O2 Del Method 03/13/25 15:08 36.6 C 80 16 151/78 H 95 Room Air 03/13/25 08:20 36.7 C 91 H 19 156/79 H 94 Room Air 03/13/25 07:50 Room Air Laboratory Results Abnormal lab results 03/13/25 Range/Units 06:23 WBC 13.40 H (4.8-10.8) K/ul RBC 3.10 L (4.20-5.40) M/uL Hgb 8.0 L (12.0-16.0) g/dl Hct 25.5 L (37.0-47.0) % MCHC 31.4 L (32.0-36.0) g/dL RDW Coeff of Angy 15.2 H (11.5-14.5) % Neut # (Auto) 11.05 H (1.40-6.50) K/uL Lymph # (Auto) 1.13 L (1.20-3.40) K/uL [place] # (Auto) 0.76 H (0.11-0.59) K/uL Immature Gran # (Auto) 0.44 H (0.01-0.20) K/uL Potassium 3.2 L (3.5-5.1) mmol/L AST 214 H (13-39) U/L ALT 156 H (7-52) U/L Albumin 2.8 L (3.4-5.0) gm/dl Albumin/Globulin Ratio 0.8 L (0.9-2) Diagnostic Findings Abdomen/Pelvis CT 03/08/25 21:08 CR Exam(s): CT ABDOMEN + PELVIS With Contrast IV Amt: 93ml opti 320 EXAM: CT Abdomen and Pelvis With Intravenous Contrast CLINICAL HISTORY: Reason for exam: mid abd pain. TECHNIQUE: Axial computed tomography images of the abdomen and pelvis with intravenous contrast. Automated exposure control was utilized for the study. A dose lowering technique was utilized adhering to the principles of ALARA. CONTRAST: Patient received 93ml opti 320 of IV contrast COMPARISON: No relevant prior studies available. FINDINGS: Lung bases: Unremarkable. No mass. No consolidation. Mediastinum: Fluid-filled large hiatal hernia with the gastric fundus and body elevated above the left hemidiaphragm. ABDOMEN: Liver: Extrahepatic biliary ductal dilatation is expected given patient's postoperative state. Gallbladder and bile ducts: Postop changes prior cholecystectomy. Pancreas: Unremarkable. No mass. No ductal dilation. Spleen: Unremarkable. No splenomegaly. Adrenals: Unremarkable. No mass. Kidneys and ureters: There is a lack of enhancement of the right kidney Multiple left renal parapelvic cysts. Left upper pole hypodensity likely representing small infarct within same No hydronephrosis. Stomach and bowel: High-grade small-bowel obstruction with a transition point in the right lower quadrant. Diverticulosis without evidence of diverticulitis. PELVIS: Appendix: No findings to suggest acute appendicitis. Bladder: Unremarkable. No mass. Reproductive: Unremarkable as visualized. ABDOMEN and PELVIS: Intraperitoneal space: Unremarkable. No free air. No significant fluid collection. Bones/joints: No acute fracture. No dislocation. Soft tissues: Unremarkable. Vasculature: See above. Lymph nodes: Unremarkable. No enlarged lymph nodes. IMPRESSION: Right renal infarct Infarct upper pole left kidney High-grade small-bowel obstruction Communications: 03/08/25 23:06 Call Doctor Regarding Acute arterial occlusion/ critical stenosis, called Dr. Cummins on 03/08 23:06 (-04:00) Electronically signed by: Geraldo Roldan MD 03/08/25 23:08 PM Chest X-Ray 03/08/25 21:46 Exam(s): XR CXR 1 VIEW EXAM: XR Chest, 1 View CLINICAL HISTORY: Reason for exam: port?. TECHNIQUE: Frontal view of the chest. COMPARISON: No relevant prior studies available. FINDINGS: Lungs: Unremarkable. No consolidation. Pleural space: Trace left pleural effusion. No pneumothorax. Heart: Unremarkable. No cardiomegaly. Mediastinum: Unremarkable. Normal mediastinal contour. Bones/joints: Unremarkable. No acute fracture. Tubes, lines and devices: Left-sided subcu chest port with its tip in the mid SVC. Upper abdomen: Elevation of the left hemidiaphragm. Postop changes prior cholecystectomy. IMPRESSION: Trace left pleural effusion. Left-sided chest port with its tip at the mid SVC Electronically signed by: Grealdo Roldan MD 03/08/25 23:27 PM Renal Artery Duplex 03/08/25 23:17 EXAM: US duplex renal art/vein BI CLINICAL HISTORY: Renal infarct. TECHNIQUE: Bilateral renal arterial duplex was performed. COMPARISON: CT abdomen and pelvis dated on 07/15/2024. US Renal dated on 03/08/2025. FINDINGS: Kidneys: Right kidney measures 8.65 cm, relatively small in size. Known right lower pole infarct; no Doppler waveforms obtained in this region. Left kidney measures 11.58 cm, normal in size. No evidence of stones or hydronephrosis bilaterally. Few bilateral small renal cysts. Aorta: Proximal aorta: 2.08 cm (AP, Trans) Mid aorta: 1.35 x 1.33 cm, PSV 102.3 cm/s at 60°. Distal aorta: 1.26 x 1.19 cm. Diameter is within normal limits. No atherosclerotic changes throughout the visualized abdominal aorta. Renal Arteries: Parameter Right Renal Artery (RRA) Left Renal Artery (LRA) Proximal PSV/EDV (cm/sec) PSV 72.7 / EDV 18.9, RI 0.74, AC 18° PSV 193.7 / EDV 42.2, RI 0.78, AC 49° Mid PSV/EDV (cm/sec) PSV 81.9 / EDV 17.1, RI 0.79, AC 40° PSV 167.8 / EDV 28.9, RI 0.83, AC 32° Distal PSV/EDV (cm/sec) PSV 88.2 / EDV 19.2, RI 0.78, AC 40° PSV 111.1 / EDV 40.8, RI 0.63, AC 60° Resistive Index (RI) 0.74?0.79 across renal artery 0.63?0.83 across renal artery Renal Artery/Aorta Ratio (RAR) 0.9 1.9 Arcuate Arteries: Right Kidney Proximal: PSV 18.5 / EDV 3.9 cm/s, RI 0.79 Mid: PSV 14.3 / EDV 3.4 cm/s, RI 0.76 Distal: not visualized due to bowel gas Left Kidney Proximal: PSV 31.2 / EDV 9.3 cm/s, RI 0.70 Mid: PSV 19.2 / EDV 6.3 cm/s, RI 0.67 Distal: PSV 21.0 / EDV 6.9 cm/s, RI 0.67 Reference data: 60% stenosis, RAR 3.1:1, renal artery PSV 180 cm/s. The renal artery/aorta ratio is within normal limits bilaterally. There is no detectable renal artery stenosis bilaterally. IMPRESSION: 1. Relatively small right kidney (8.65 cm) with known right lower pole infarct; no Doppler flow detected in right lower pole. 2. Left kidney normal in size (11.58 cm) with preserved parenchymal perfusion. 3. Renal arteries patent bilaterally, no hemodynamically significant stenosis (RAR 3.1). 4. Aorta normal in caliber and flow. 5. Findings correlate with prior studies. Electronically signed by Isaiah Huitron 03-09-2025 02:30 AM Renal Ultrasound 03/08/25 23:17 EXAM: US renal/blad retro comp CLINICAL HISTORY: Renal infarct TECHNIQUE: A renal ultrasound was performed using grayscale imaging. COMPARISON: CT abdomen and pelvis dated on 07/15/2024. FINDINGS: Right Kidney: The right kidney measures 9.1 cm, smaller compared to the left. It is echogenic, with loss of corticomedullary differentiation in the lower pole. Evaluation of the lower pole is limited due to overlying bowel gas. No hydronephrosis or calculi identified. Right lower pole infarct was seen on prior CT. Left Kidney: The left kidney measures 11.4 cm. A 22 × 19 × 16 mm mid-pole cyst and an 8 × 11 × 8 mm lower pole cyst are seen. There is mild dilatation of the left pelvicalyceal system, unchanged. No calculi or masses. Parenchymal echogenicity, otherwise within normal limits. Evaluation limited due to excessive bowel gas. Urinary Bladder: The urinary bladder is not fully distended. No calculi or masses identified. Ureteric jets were not visualized on today's exam. IMPRESSION: 1. Small, echogenic right kidney with loss of corticomedullary differentiation in the lower pole; prior CT demonstrated right lower pole infarct. 2. Left kidney with two simple cysts and stable mild pelvicalyceal dilatation. 3. Bladder underdistended; ureteric jets not visualized on today's study. 4. Findings correlate with the prior study. Electronically signed by Isaiah Huitron 03-09-2025 02:[address] 03/11/25 10:30 CT chest diagnostic wo con CT DOSE: 535.78 mGy.cm CLINICAL HISTORY: r/o penumonitis. TECHNIQUE: Multiaxial CT images of the chest were performed without contrast. A dose lowering technique was utilized adhering to the principles of ALARA. COMPARISON STUDY: Chest x-ray of 03/08/[address] of 12/09/2024 FINDINGS: There is motion artifact due to difficulty breath-holding. There is a stable large hiatal hernia with the entire stomach above the diaphragm. Stable mild adjacent atelectasis at the left lower lobe. No other pulmonary consolidation or pleural effusion seen. There is a 1.6 cm subpleural oval nodular density posterior medial right lower lobe, increased in size. No other interval significant pulmonary nodule seen. No enlarged adenopathy. No pericardial effusion. There are diffuse coronary artery calcifications. There is osteopenia. There are mild thoracic spine degenerative changes. IMPRESSION: 1. No acute pneumonia is seen. 2. Right lower lobe subpleural pulmonary nodule is increased in size. Malignancy is not excluded. At a minimum, follow-up chest CT recommended in 3 months. 3. Otherwise as described. ACT 112: Positive. There are findings on this exam that require communication between the performing entity and the patient following Patient Test Result Information Act ([place] Act 112) guidelines. Electronically signed by: Alonso Erwin M.D. 03/11/2025 11:29 AM KUB X-Ray 03/13/25 07:53 KUB HISTORY: ileus, abdominal distention; compare w/ prior COMPARISON STUDY: 03/11/2025 FINDINGS: There is stable mild diffuse gaseous distention of small and large bowel. No gross free air. IMPRESSION: Stable diffuse gaseous bowel distention. ACT 112: Negative or not required by law. The above report was generated using voice recognition software. It may contain grammatical, syntax or spelling errors. Electronically signed by: Alonso Erwin M.D. 03/13/2025 9:56 AM Medications Administered Current Inpatient Medications Al Hydrox/Mg Hydrox/Simethicone (Aluminum/Magnesium Susp 30 Ml Udc) 15 ml PO Q4H PRN PRN Reason: Dyspepsia Stop: 04/08/25 01:44 Last Admin: 03/12/25 05:38 Dose: 15 ml Diltiazem HCl (Diltiazem Hcl 240 Mg Capcr) 240 mg PO QAM JACK Stop: 04/08/25 08:59 Last Admin: 03/13/25 09:23 Dose: 240 mg Enoxaparin Sodium (Enoxaparin Inj 40 Mg/0.4 Ml Syr) 40 mg SQ Q24H JACK Stop: 04/09/25 12:29 Last Admin: 03/13/25 13:23 Dose: 40 mg Heparin Sodium (Porcine) (Heparin 100 Unit/Ml 5ml Flush) 5 ml FLUSH PRN PRN PRN Reason: Flush Stop: 04/07/25 22:35 Last Admin: 03/13/25 13:22 Dose: 5 ml Pantoprazole Sodium (Protonix) 40 mg in 10 mls @ 5 mls/min IV DAILY JACK Stop: 04/08/25 08:59 Last Admin: 03/13/25 09:23 Dose: 5 mls/min Acetaminophen (Ofirmev) 1,000 mg in 100 mls @ 400 mls/hr IV Q8H PRN PRN Reason: Pain or Fever Stop: 03/21/25 10:17 Last Infusion: 03/13/25 15:05 Dose: Infused Ketorolac Tromethamine (Ketorolac Tromethamine 15 Mg/Ml Vial) 15 mg IV Q6H PRN PRN Reason: Moderate pain (6-8) Stop: 03/18/25 12:32 Levothyroxine Sodium (Levothyroxine Sodium 25 Mcg Tablet) 25 mcg PO DAILYBB JACK Stop: 04/08/25 06:29 Last Admin: 03/13/25 05:39 Dose: 25 mcg Lorazepam (Lorazepam 2 Mg/1 Ml Vial) 1 mg IV Q8H PRN PRN Reason: Anxiety/Agitation Stop: 04/09/25 11:57 Last Admin: 03/12/25 00:47 Dose: 1 mg Lorazepam (Lorazepam 1 Mg Tab) 1 mg PO TID PRN PRN Reason: Anxiety/Insomnia Stop: 04/11/25 11:27 Last Admin: 03/13/25 14:41 Dose: 1 mg Magnesium Hydroxide (Magnesium Hydroxide Susp 30 Ml Udc) 30 ml PO Q12H PRN PRN Reason: Constipation Stop: 04/08/25 01:44 Melatonin (Melatonin 3 Mg Tab) 6 mg PO HS PRN PRN Reason: Sleep Stop: 04/08/25 01:44 Metoclopramide HCl (Metoclopramide Hcl Inj 5 Mg/Ml 2 Ml Vial) 10 mg IV Q6H PRN PRN Reason: Nausea Stop: 04/12/25 09:18 Ondansetron HCl (Ondansetron Inj 2 Mg/Ml 2 Ml Vial) 4 mg IV Q6H PRN PRN Reason: Nausea Stop: 04/08/25 01:44 Last Admin: 03/12/25 19:57 Dose: 4 mg Paroxetine HCl (Paroxetine Hcl 10 Mg Tab) 10 mg PO HS JACK Stop: 04/08/25 20:59 Last Admin: 03/12/25 20:27 Dose: 10 mg Polyethylene Glycol (Polyethylene (Miralax) 17 Gm Pack) 17 gm PO DAILY PRN PRN Reason: Constipation Stop: 04/08/25 01:44 Potassium Chloride (Potassium Chloride Crtab 20 Meq Tabcr) 20 meq PO TID JACK Stop: 03/14/25 08:59 Last Admin: 03/13/25 14:42 Dose: 20 meq Tobramycin/Dexamethasone (Tobramycin/Dexamethasone Oph Oint 3.5 Gm Tube) 1 appln OP BID JACK Stop: 03/17/25 20:59 Last Admin: 03/13/25 09:23 Dose: 1 appln Tramadol HCl (Tramadol Hcl 50 Mg Tablet) 50 mg PO Q6H PRN PRN Reason: Severe Pain (9,10) Stop: 04/11/25 11:29 Zinc Acetate/Diphenhydramine (Diphenhydramine 2%/Zinc 0.1% Cream 28.4gm Tube) 1 appln EXT Q6H PRN PRN Reason: rash Stop: 04/08/25 22:48 Last Admin: 03/11/25 14:00 Dose: 1 appln PG Care Time/CCT Total # of Minutes Spent Total Time Spent with Patient: Total time spent is greater than 50% in coordination of care (as documented) at patient's floor/unit and/or counseling patient: Coding Level of Care Code 65984 SUB INP/OBS CARE 2/35MIN Diagnoses Palliative care by specialist Z51.5 Weakness generalized R53.1 Abdominal pain, generalized R10.84
[2025-03-13] MEDS ORDERED: ACETAMINOPHEN 325 MG TAB PO PRN (19:13)
--- NOTE | 2025-03-13 19:21 | Billing Data ---
Date of Service March 13, 2025 Coding Level of Care Code 40161 SUB INP/OBS CARE
[2025-03-13] MEDS: METOCLOPRAMIDE HCL INJ 5 MG/ML 2 ML VIAL IV SCH (20:13)
[2025-03-14 06:25] LABS: Hematocrit (blood only) 27.3 % (37.0-47.0); Hemoglobin 8.7 g/dl (12.0-16.0); Mean Corpuscular Hemoglobin 26.1 pg (25.0-34.0); Mean Corpuscular Volume 82.0 fL (80.0-100.0); Platelet Count 177 K/uL (130-400); RDW Standard Deviation 44.6 fL (36.4-46.3); Red Blood Count 3.33 M/uL (4.20-5.40); White Blood Count 8.35 K/ul (4.8-10.8)
[2025-03-14 06:49] LABS: Alanine Aminotransferase 140.0 U/L (7-52); Alkaline Phosphatase 78.0 U/L (34-104); Anion Gap 3.0 (3-11); Bilirubin,Total 0.3 mg/dl (0.2-1.0); Blood Urea Nitrogen 12.0 mg/dl (6-23); Calcium 8.9 mg/dl (8.6-10.3); Carbon Dioxide 28.0 mmol/L (21-32); Chloride 104.0 mmol/L (98-107); Creatinine Clr Calc Pharmacy 41.9 ml/min; Glucose 91.0 mg/dl (70-99(Fasting)); Potassium 3.7 mmol/L (3.5-5.1); Sodium 135.0 mmol/L (136-145); Total Protein 6.5 gm/dl (6.0-8.3)
--- NOTE | 2025-03-14 09:48 | XRay Report ---
KUB HISTORY: Ileus COMPARISON STUDY: 03/13/2025 FINDINGS: Stable right upper quadrant surgical clips. Stable diffuse gaseous bowel distention measuri ng up to 9 cm at the colon and 4 cm at the small bowel. IMPRESSION: Stable gaseous bowel distention. ACT 112: Negative or not required by law. The above report was generated using voice recognition software. It may contain grammatical, syntax o r spelling errors. Electronically signed by: Alonso Erwin M.D. 03/14/2025 9:47 AM
--- NOTE | 2025-03-14 11:04 | Gastroenterology Progress Note ---
Date of Service March 14, 2025 Assessment & Plan (1) Ileus: Plan Patient continues to move her bowels frequently. She is tolerating a diet and notes resolution of her abdominal discomfort and bloating. KUB shows stable gaseous distention. If symptoms worsen, can utilize rectal tube prn. Admission and Anticipated Discharge Date Admission Date: March 08, 2025 Supervising Physician Co-Signing Physician Notes Liquid bowel movement this morning. Feeling well. X-ray looks about the same. I suspect she always has some gaseous distention. Reviewed with patient and Dr. Arreguin at the bedside. Remain off diltiazem and Bentyl. Can use fiber supplements and prunes which she has for her lifetime. Continued activity mo vement may assist further in activating or improving bowel function. Reconsult GI a as needed Subjective Patient is an 84 yo female with ileus. She is moving her bowels and has continued to do so throughout the night. A KUB shows persistent distention this AM, but she notes significant improvement of her bloating and discomfort. She is ambulating frequently and tolerating a diet. Rectal tube is out as she is spontaneously moving her bowels frequently. Review of Systems Gastrointestinal: no abdominal pain and no bloating Physical Exam Gastrointestinal (Abdomen): Inspection/Auscultation: + abdomen distended Percussion/Palpation: abdomen soft more bowel sounds than yesterday Results & Data Results & Data Vital Signs (Past 12 Hours) Vital Signs Temp Pulse Resp BP Pulse Ox O2 Del Method 03/14/25 07:21 36.7 C 82 16 150/76 H 95 Room Air 03/13/25 23:12 36.8 C 89 16 160/90 H 95 Room Air PG Care Time/CCT Total # of Minutes Spent Total Time Spent with Patient: Total time spent is greater than 50% in coordination of care (as documented) at patient's floor/unit and/or counseling patient: Coding Level of Care Code 49183 SUB INP/OBS CARE 2/35MIN Diagnoses Ileus K56.7
--- NOTE | 2025-03-14 11:04 | Surgery Progress Note ---
Date of Service March 14, 2025 Assessment & Plan (1) Ileus: Plan: KUB today with persistent and stable diffuse small and large bowel distention Consistent with Ileus/[place] Continue to ambulate as much as possible continue medical/ GI management No surgical intervention required , our services are signing off, call with questions concerns. Admission and Anticipated Discharge Date Admission Date: March 08, 2025 Subjective feeling good, multiple bowel movements last night and this am passing some gas still belching but not as much tolerated diet, eggs this morning no abdominal pain some cramping prior to bowel movement Physical Exam Constitutional: WD/WN, vitals as above cooperative and comfortable; no acute distress and not ill appearing Gastrointestinal (Abdomen): Inspection/Auscultation: abdomen normal to inspection and + hypoactive bowel sounds; abdomen not distended Percussion/Palpation: abdomen soft; abdomen nontender, no guarding and abdomen not rigid Skin: no rashes, warm and dry Psychiatric: A+Ox3, euthymic affect Results & Data Vital Signs (Past 12 Hours) Vital Signs Temp Pulse Resp BP Pulse Ox O2 Del Method 03/14/25 07:21 36.7 C 82 16 150/76 H 95 Room Air 03/13/25 23:12 36.8 C 89 16 160/90 H 95 Room Air Laboratory Results 03/14/25 Range/Units 05:53 WBC 8.35 (4.8-10.8) K/ul RBC 3.33 L (4.20-5.40) M/uL Hgb 8.7 L (12.0-16.0) g/dl Hct 27.3 L (37.0-47.0) % MCV 82.0 (80.0-100.0) fL MCH 26.1 (25.0-34.0) pg MCHC 31.9 L (32.0-36.0) g/dL RDW Std Deviation 44.6 (36.4-46.3) fL RDW Coeff of Angy 15.2 H (11.5-14.5) % Plt Count 177 (130-400) K/uL MPV 9.4 (9.4-12.4) fL Sodium 135 L (136-145) mmol/L Potassium 3.7 (3.5-5.1) mmol/L Chloride 104 (98-107) mmol/L Carbon Dioxide 28 (21-32) mmol/L Anion Gap 3 (3-11) BUN 12 (6-23) mg/dl Creatinine 0.96 (0.6-1.2) mg/dl Est Cr Clr Drug Dosing 41.9 ml/min eGFR 58.71 BUN/Creatinine Ratio 12.5 (10-20) Glucose 91 (70-99(Fasting)) mg/dl Calcium 8.9 (8.6-10.3) mg/dl Total Bilirubin 0.3 (0.2-1.0) mg/dl Direct Bilirubin 0.1 (0-0.2) mg/dl AST 126 H (13-39) U/L ALT 140 H (7-52) U/L Alkaline Phosphatase 78 (34-104) U/L Total Protein 6.5 (6.0-8.3) gm/dl Albumin 2.9 L (3.4-5.0) gm/dl Diagnostic Findings KUB HISTORY: Ileus COMPARISON STUDY: 03/13/2025 FINDINGS: Stable right upper quadrant surgical clips. Stable diffuse gaseous bowel distention measuring up to 9 cm at the colon and 4 cm at the small bowel. IMPRESSION: Stable gaseous bowel distention.
[2025-03-14] MEDS: KETOROLAC TROMETHAMINE 15 MG/ML VIAL IV PRN (13:26)
[2025-03-14 14:38] VITALS: BP 162/84; PULSE 89; TEMP 98.4; O2SAT 96
[2025-03-14] MEDS: LOSARTAN POTASSIUM 50 MG TAB PO SCH (17:41)
[2025-03-14] MEDS: LOSARTAN POTASSIUM 25 MG TAB PO SCH (17:42)
--- NOTE | 2025-03-14 18:09 | Discharge Summary ---
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 Periumbilical abdominal pain started [id number]. One episode of emesis on 03/08. Has had difficulty with bowel movements. Did try taking laxatives at home. Had one small bowel movement. Still with +flatus. She was recently started on cefdinir and erythromycin eye drops for stye on R eye and this caused her to miss her chemo treatment. At the time of my encounter she was resting comfortably in bed, denies CP, SOB, N/V. ED course: Labs reveal hyponatremia, mild creatinine elevation (baseline appears to be about 1-1.1) CT reveals high grade SBO, R renal infarct, L upper pole renal infarct Rec'd 1L NSS Admission Exam Per Admitting Provider Constitutional: age appropriate, no acute distress HEENT: NCAT, no conjunctival injection CV: regular rhythm, no murmur appreciated, extremities well-perfused, no LE edema Resp: CTABL, no wheezes/rales/rhonchi appreciated, no increased work of breathing GI: soft, nondistended, mild tenderness to palpation in RUQ, no rebound/guarding, BS hyperactive MSK: no gross deformities appreciated Skin: warm, dry, no rash appreciated Neuro: alert, oriented, no focal neurologic deficit appreciated Principal Diagnosis Jean Paul syndrome Discharge Exam General: patient resting comfortably, NAD, non-toxic in appearance, answers questions appropriately HEENT: R upper central eyelid- <1cm circular area of swelling and erythema, remainder of upper eyelid dry skin and mild erythema, no blood or other discharge noted; NC/AT, anicteric sclerae, conjunctiva without injection, moist mucus membranes. CV: RRR, +s1/s2, no m/r/g; mediport in place in L upper chest Resp: equal air entry b/l, no rales/rhonchi/wheezes GI/Abd: +BS, abdomen non-distended, non-rigid, and nontender to palpation Ext: 1+ pitting edema of b/l LE up to mid-shins; warm, no clubbing/cyanosis Neuro: no focal deficits, speech intact, no facial droop, moving all extremities. Skin: mild erythema to skin of lower abdomen, otherwise no rash or lesions observed Discharge Data Allergies Allergy/AdvReac Type Severity Reaction Status Date / Time adhesive Allergy Unknown Rash Verified 02/04/25 10:11 iodine Allergy Unknown Unknown Verified 02/04/25 10:11 morphine AdvReac Unknown Confusion Verified 02/04/25 10:11 oxycodone [From OxyContin] AdvReac Unknown "[place] Verified 02/04/25 10:11 awful" Consultations 03/08/25 22:50 ED Decision to Admit Stat 03/08/25 23:40 Consult General Surgery Routine 03/08/25 23:43 Consult Urology Routine 03/08/25 23:51 Consult Oncology Stat 03/10/25 16:18 Consult Palliative Care Routine 03/12/25 19:55 Consult Gastroenterology Routine Ordered Studies 03/08/25 21:08 CT abd pelvis IV con only Stat 03/08/25 23:17 US duplex renal art/vein BI Stat US renal/blad retro comp Stat 03/11/25 10:30 CT chest diagnostic wo con Urgent Hospital Course (1) Ileus: (2) Abdominal pain: (3) Acute hyponatremia: (4) Urothelial carcinoma of kidney: Plan 84 yo female PMHx 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 After decompression of small and large intestines with rectal tube on 03/13/25 evening, she have passed significant gas and stool. She have been tolerating regular low fiber diet for the past 3 meals and have been walking around the floor. Since she is now having bowel movements and passing gas, without abdominal pain or nausea/vomiting, as well as medically stable, we feel comfortable with her discharge home today, on home hospice, on the condition that she follow up with PCP next week and oncologist soon. #[place] syndrome status-post Small Bowel Obstruction Likely due to history of multiple abdominal surgeries, potentially complicated by use of diltiazem, tramadol/opioids,bentyl - Rectal tube was used for bowel decompression, which was successful on 03/13/25 - Recommending to continue using reglan 5mg with meals and before bed - Continue using miralax daily to help promote soft but formed stools - Encouraged to use bisacodyl rectal suppositories if have not had a bowel movement in 2 or more days -dc diltiazem and bentyl; spare use of tramadol as is going on hospice #Elevated liver enzymes, resolving AST 214 -> 126 and ALT 156 -> 140 CT Abd/pelvis from 03/08/25 showing extrahepatic biliary ductal dilatation, no specific liver findings noted - in the absence of no significant changes in clinical status or medications aside from administration of unasyn and neupogen, likely due to one of these Discontinued unasyn, neupogen only given once #Anemia, stable #Leukopenia/Neutropenia, resolved Hgb improving 8 -> 8.7, no obvious signs or symptoms of bleeding Had pt sign transfusion consent form 03/11/25, no transfusion needed throughout hospitalization White blood cells within normal limits, no further neupogen #Hypertension (high blood pressure) Discontinued diltiazem as could contribute to ileus/Jean Paul syndrome - started on losartan 25mg daily as this does not have a known effect on GI motility and will help manage elevated blood pressure #Periorbital Cellulitis, R upper eyelid Reportedly only on abx for 2 days before coming to hospital, improving Discontinued Unasyn due to sufficient abx duration and clinical improvement, also due to possible drug-induced acute transaminitis Continue tobra/dex as prescribed CBC AM #Urothelial carcinoma of kidney - Stage IV with mets to lung - Currently holding chemotherapy gemcitabine, but will be going home on home hospice, thus having [facility] de-accessed before discharge - Leuko/neutropenia resolved with one dosage of Neupogen 03/11/25 #Renal Infarction - R renal, L upper pole renal infarction on CT scan- correlates to the location of her known carcinomatous masses - Renal US with duplex confirms above without acute changes #Abdominal rash/irritation, acute - may use benadryl cream and oral antihistamine as needed #Hypothyroidism Continue Synthroid #Anxiety/Mental Health Continue Paxil, Ativan #GERD Continue Protonix 40mg IV daily Total Time Total Time Spent Total Time Spent (In Minutes): 40 Discharge Plan Discharge Items Patient Disposition: Hospice - Home Reason For Visit: ABDOMINAL PAIN Discharge Diagnosis: s/p SBO; [place] syndrome Condition on Discharge: Serious Activity: Per Instructions section Non-emergency contact: Primary Care Provider Call non-emergency contact if: your symptoms worsen and your pain is not controlled Follow-up/Referrals: Joycelyn Schroeder DNP [Nurse Practitioner] - Daria Taylor D.O. [Primary Care Provider] - Diet: Regular and Low Fiber Addtl Attending Provider Instructions: You were evaluated and treated for small bowel obstruction, which then became a bowel "pseudo-obstruction" called Jean Paul syndrome. After decompression of your small and large intestines with rectal tube on 03/13/25 evening, you have passed significant gas and stool. You have been tolerating regular low fiber diet for the past 3 meals and have been walking around the floor. Since you are now having bowel movements and passing gas, without abdominal pain or nausea/vomiting, as well as medically stable, we feel comfortable with your discharge today on the condition that you follow up with your PCP next week and oncologist soon. 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 Likely due to history of multiple abdominal surgeries, potentially complicated by use of diltiazem - Rectal tube was used for bowel decompression, which was successful on 03/13/25 - Recommending to continue using reglan 5mg with meals and before bed - Continue using miralax daily to help promote soft but formed stools - Encouraged to use bisacodyl rectal suppositories if you have not had a bowel movement in 2 or more days #Elevated liver enzymes, resolving AST 214 -> 126 and ALT 156 -> 140 CT Abd/pelvis from 03/08/25 showing extrahepatic biliary ductal dilatation, no specific liver findings noted - in the absence of no significant changes in clinical status or medications aside from administration of unasyn and neupogen, likely due to one of these Discontinued unasyn, neupogen only given once #Anemia, stable #Leukopenia/Neutropenia, resolved Hgb improving 8 -> 8.7, no obvious signs or symptoms of bleeding Had pt sign transfusion consent form 03/11/25, no transfusion needed throughout hospitalization White blood cells within normal limits, no further neupogen #Hypertension (high blood pressure) Discontinued diltiazem as could contribute to ileus/[place] syndrome - started on losartan 25mg daily as this does not have a known effect on GI motility and will help manage elevated blood pressure #Periorbital Cellulitis, R upper eyelid Reportedly only on abx for 2 days before coming to hospital, improving Discontinued Unasyn due to sufficient abx duration and clinical improvement, also due to possible drug-induced acute transaminitis Continue tobra/dex as prescribed CBC AM #Urothelial carcinoma of kidney - Stage IV with mets to lung - Currently holding chemotherapy gemcitabine, but will be going home on home hospice, thus having [facility] de-accessed before discharge - Leuko/neutropenia resolved with one dosage of Neupogen 03/11/25 #Renal Infarction - R renal, L upper pole renal infarction on CT scan- correlates to the location of her known carcinomatous masses - Renal US with duplex confirms above without acute changes #Abdominal rash/irritation, acute - may use benadryl cream and oral antihistamine as needed #Hypothyroidism Continue Synthroid #Anxiety/Mental Health Continue Paxil, Ativan #GERD Continue Protonix 40mg IV daily Pending Studies at Discharge: No Stand-Alone Forms: My [facility] Medications and DC Order Prescriptions: New metoclopramide HCl 5 mg Tablet 5 mg PO ACHS 30 Days Qty: 120 0RF losartan 25 mg Tablet 25 mg PO QAM 30 Days Qty: 30 0RF Anti-Itch(diphenhyd) with Zinc 2-0.1 % Cream 1 applic EXT Q6H PRN (Reason: itching) 30 Days Qty: 30 0RF TobraDex 0.3-0.1 % Ointment 1 applic ophthalmic (eye) BID 7 Days Qty: 3.5 0RF bisacodyl 10 mg suppository 10 mg [place] DAILY PRN (Reason: constipation) Qty: 12 0RF Continued multivitamin with iron [Daily Vites/Iron] Tablet 1 tab PO DAILY paroxetine HCl 10 mg tablet 10 mg PO HS levothyroxine 25 mcg tablet 25 mcg PO QAM omeprazole 20 mg capsule,delayed release(DR/EC) 20 mg PO QAM lorazepam 1 mg tablet 1 mg PO TID PRN (Reason: Anxiety) tramadol 50 mg Tablet 50 mg PO Q6H PRN (Reason: Pain) ondansetron 8 mg Tablet,Disintegrating 8 mg PO Q8H PRN (Reason: Nausea) ibuprofen 600 mg Tablet 600 mg PO BID PRN (Reason: Pain) Discontinued diltiazem HCl 240 mg capsule,extended release 24 hr 240 mg PO QAM dicyclomine 10 mg capsule 10 mg PO TID PRN (Reason: abdominal pain) Qty: 30 0RF Discharge Orders: Discharge Order (Routine); Ordered 03/14/25 Ordered By: Tamara Guzmán/Other Patient Handouts: What Is Palliative Care Admission Data Admit Date/Time: 03/08/25 23:51 Attending Provider: Tamara Paige Admit Provider: Alfie Bowman Primary Care Provider: Daria Taylor Other Providers: Eric Javier; Duy Suggs; Marin Roman; Ana Maria Cai; Joycelyn Schroeder; Jean Claude Daniels; [facility] Other Interventions: Discharge Summary Assessment (RN) Last Done: 03/14/25 18:03 Supervising Physician Co-Signing Physician Notes I personally examined the patient and verified all [place] points of history and exam, discussed case, and agree with decision making with Dr. Begum with the following additions/exceptions: S-Pt feelig much better, passing loose stools, gas, no abd pain, no nausea, tolerating soft diet, ready for discharge. Discussed her care with GI at bedside prior to discharge O- Vitals Reviewed Gen: AAOx3, NAD HEENT: Anicteric sclerae, EOMI, mild erythema in right upper eyelid with large stye improving CV: RRR no mgr nl S1S2 Pulm: CTAB no wcr Abd: + normal bowel sounds, soft, NT, ND Ext: No edema Skin: No rashes, warm/dry Neuro: Full strength throughout CBC, BMP, LFTs, KUB image personally reviewed A/P: 84-year-old female here with small bowel obstruction which was actually more pseudo-obstruction, now much improved after rectal tube, starting reglan. Passing significant amounts of flatus and multiple stools, improving -schedule reglan qid Appreciate GI and SUrgery recommendations -Encouraged ambulation, minimizing opioid pain medicines, and stop diltiazem and bentyl as can cause ileus -stye of the right eye -finished 5 days of abx between inpatient and outpt, LFTs rising could be side effect of Unasyn and LFTs now improving -Hyponatremia -resolved - appreciate Oncology consult dc to home and plan to enroll in hospice I spent 35 min in care of this pt with face to face time, discussing care with specialist, family at bedside, review of labs and rads Resident Activity Tracking Resident Involvement: Resident Care Provided Care Provided: Adult Hospital Medicine
[2025-03-14] MEDS ORDERED: METOCLOPRAMIDE HCL 5 MG TABLET PO SCH (21:00)
--- NOTE | 2025-03-15 08:15 | Billing Data ---
Date of Service March 15, 2025 Coding Level of Care Code 56729 INP/OBS DISCH >30 MIN
[2025-03-15] MEDS ORDERED: LOSARTAN POTASSIUM 50 MG TAB PO SCH (09:00)
== END 2025-03-14 18:28 | disposition hospice, home (50) | DRG 389 ==
LOC: ED 20:59 → SUATTDRO 23:51 → 2W 23:51 → 3E 03-10 22:25